=== PATIENT | male | born 1970 | race Two or more races ===

== ENCOUNTER 2020-09-30 17:17 | Inpatient (IN) | payer OTHER, MEDICAID ==
[~2020-09-30] VITALS: Ht 167.6 cm; Wt 94.7 kg
[2020-09-30] MEDS ORDERED: SODIUM CHLORIDE 0.9% 1,000 ML IV ONE (17:30)
[2020-09-30 18:43] LABS: Basophils # (auto) 0.1 10 ^3/uL (0-0.2); Basophils % (auto) 0.6 % (0.0-2.0); Eosinophils # (auto) 0.2 10 ^3/uL (0-0.8); Eosinophils % (auto) 1.7 % (0.0-7.0); Hematocrit 38.8 % (41.0-53.0); Hemoglobin 13.7 g/dL (13.5-17.5); Lymphocytes # (auto) 2.2 10 ^3/uL (0.4-5.4); Lymphocytes % (auto) 20.6 % (10.0-50.0); Mean Corpuscular Hemoglobin 29.1 pg (28.0-32.0); Mean Corpuscular Hgb Conc. 35.2 g/dL (32.0-36.0); Mean Corpuscular Volume 82.6 fL (80.0-100.0); Monocytes # (auto) 0.7 10 ^3/uL (0-1.3); Monocytes % (auto) 6.6 % (0.0-12.0); Neutrophils # (auto) 7.6 10 ^3/uL (1.6-8.6); Neutrophils % (auto) 70.5 % (37.0-80.0); Platelet Count (auto) 305 10^3/uL (140-450); Red Cell Distribution Width 14.1 % (11.8-14.3); White Blood Cell 10.7 10^3/uL (4.4-10.8)
[2020-09-30 18:58] LABS: Albumin 4.1 g/dL (3.4-5.0); Anion Gap 7 (5-15); Blood Urea Nitrogen 18 mg/dL (7-18); Calcium 8.4 mg/dL (8.5-10.1); Carbon Dioxide 24 mmol/L (21-32); Chloride 108 mmol/L (98-107); Glucose 136 mg/dL (74-106); Potassium 3.4 mmol/L (3.5-5.1); Sodium 139 mmol/L (136-145)
[2020-09-30] MEDS ORDERED: ZOLPIDEM TARTRATE 5 MG TAB PO PRN (19:00)
[2020-09-30] MEDS ORDERED: NITROGLYCERIN 0.4 MG SL TAB SL PRN (19:00)
[2020-09-30] MEDS ORDERED: MORPHINE SULF INJ 2 MG/ML SYRINGE 1ML IV PRN ×2 (19:00)
[2020-09-30] MEDS ORDERED: ONDANSETRON HCL 4 MG/2 ML VIAL IV PRN (19:00)
[2020-09-30] MEDS ORDERED: ACETAMINOPHEN 325 MG TAB PO PRN (19:00)
[2020-09-30 19:04] LABS: INR 1.03 (0.9-1.15); Partial Thromboplastin Time 27.9 sec (23.0-31.2)
[2020-09-30 19:05] LABS: Alanine Aminotransferase 16 U/L (16-61); Alkaline Phosphatase 82 U/L (45-117); Aspartate Aminotransferase 12 U/L (15-37); BUN/Creatinine Ratio 20.9; Bilirubin, Total 0.8 mg/dL (0.2-1.0); Creatine Kinase IFCC 396 U/L (39-308); GFR African American 121 mL/min; GFR Non-African American 100 mL/min; Total Protein 7.2 g/dL (6.4-8.2)
[2020-09-30 22:00] VITALS: BP 151/91
[2020-09-30] MEDS: METOPROLOL TARTRATE 50 MG TAB PO SCH (22:00)
[2020-09-30 22:05] LABS: Urine WBC None Seen /hpf (0 - 3)
[2020-09-30 22:16] LABS: Urine Bacteria NONE SEEN /hpf (None Seen); Urine Blood 1+ /uL (Negative); Urine Hyaline Cast FEW /lpf (0 - 2); Urine Mucus FEW (None Seen); Urine Specific Gravity 1.023 (1.001-1.035)
[2020-09-30] MEDS ORDERED: BUPR100T14 PO (23:04)
[2020-09-30] MEDS ORDERED: AMLO5TAB15 PO (23:04)
[2020-09-30] MEDS ORDERED: MELO1TAB56 PO (23:04)
[2020-09-30] MEDS ORDERED: LISI40TA11 PO (23:04)
[2020-09-30] MEDS ORDERED: BACL10TA PO (23:04)
[2020-09-30] MEDS ORDERED: CLON0.1T PO (23:04)
[2020-09-30] MEDS ORDERED: NAP500T PO (23:04)
[2020-09-30] MEDS ORDERED: SIMV-8 PO (23:04)
[2020-09-30] MEDS ORDERED: POTA10TA51 PO (23:04)
[2020-09-30] MEDS ORDERED: CARV12.544 PO (23:04)
[2020-09-30] MEDS: LISINOPRIL 20 MG TAB PO SCH (23:28)
[2020-09-30 23:31] VITALS: BP 151/91
[2020-10-01 00:03] VITALS: BP 151/91
[2020-10-01 05:00] VITALS: BP 148/94
[2020-10-01 05:37] LABS: Basophils # (auto) 0.1 10 ^3/uL (0-0.2); Basophils % (auto) 0.8 % (0.0-2.0); Eosinophils # (auto) 0.3 10 ^3/uL (0-0.8); Eosinophils % (auto) 3.6 % (0.0-7.0); Hemoglobin 12.9 g/dL (13.5-17.5); Lymphocytes # (auto) 2.1 10 ^3/uL (0.4-5.4); Lymphocytes % (auto) 25.1 % (10.0-50.0); Mean Corpuscular Hemoglobin 28.8 pg (28.0-32.0); Mean Corpuscular Hgb Conc. 34.9 g/dL (32.0-36.0); Mean Corpuscular Volume 82.6 fL (80.0-100.0); Monocytes # (auto) 0.8 10 ^3/uL (0-1.3); Monocytes % (auto) 9.1 % (0.0-12.0); Neutrophils # (auto) 5.1 10 ^3/uL (1.6-8.6); Neutrophils % (auto) 61.4 % (37.0-80.0); Nucleated Red Blood Cells % 0.2 %; Platelet Count (auto) 275 10^3/uL (140-450); Red Blood Cells 4.48 10^6/uL (4.5-5.90); Red Cell Distribution Width 13.7 % (11.8-14.3); White Blood Cell 8.3 10^3/uL (4.4-10.8)
[2020-10-01 05:56] LABS: Calcium 8.2 mg/dL (8.5-10.1); Potassium 3.2 mmol/L (3.5-5.1)
[2020-10-01 06:02] LABS: Albumin 3.6 g/dL (3.4-5.0); BUN/Creatinine Ratio 18.6; Bilirubin, Total 0.8 mg/dL (0.2-1.0); Total Protein 6.7 g/dL (6.4-8.2)
[2020-10-01] MEDS: METOPROLOL TARTRATE 50 MG TAB PO SCH (08:50)
[2020-10-01] MEDS: LISINOPRIL 20 MG TAB PO SCH ×2 (08:50→21:41)
[2020-10-01 09:00] VITALS: BP 129/82
[2020-10-01] MEDS: SODIUM CHLORIDE 0.9% 1,000 ML IV SCH ×2 (09:45→23:46)
[2020-10-01] MEDS ORDERED: POTASSIUM CHLORIDE 40 MEQ, LIDOCAINE 1% (LOCAL ANESTH.) 4 ML in SODIUM CHL 0.9% 250 ML IV ONE (09:45)
[2020-10-01] MEDS: CARVEDILOL 12.5 MG TAB PO SCH ×2 (11:14→21:40)
[2020-10-01] MEDS ORDERED: amLODIPine BESYLATE 5 MG TAB PO ONE (11:15)
[2020-10-01] MEDS: HYDROcodone-ACET 10/325MG TAB PO PRN (11:28)
[2020-10-01 13:00] VITALS: BP 142/99
[2020-10-01 17:00] VITALS: BP 126/94
[2020-10-01] MEDS: ATORVASTATIN 20 MG TAB PO SCH (21:40)
[2020-10-01 22:00] VITALS: BP 146/104
[2020-10-02 05:00] VITALS: BP 114/88
[2020-10-02 06:32] LABS: Basophils # (auto) 0.1 10 ^3/uL (0-0.2); Basophils % (auto) 0.8 % (0.0-2.0); Eosinophils # (auto) 0.4 10 ^3/uL (0-0.8); Eosinophils % (auto) 5.4 % (0.0-7.0); Hematocrit 37.7 % (41.0-53.0); Hemoglobin 12.9 g/dL (13.5-17.5); Lymphocytes # (auto) 2.4 10 ^3/uL (0.4-5.4); Mean Corpuscular Hemoglobin 28.4 pg (28.0-32.0); Mean Corpuscular Hgb Conc. 34.3 g/dL (32.0-36.0); Mean Corpuscular Volume 82.9 fL (80.0-100.0); Monocytes # (auto) 0.8 10 ^3/uL (0-1.3); Monocytes % (auto) 10.7 % (0.0-12.0); Neutrophils # (auto) 3.9 10 ^3/uL (1.6-8.6); Neutrophils % (auto) 51.1 % (37.0-80.0); Nucleated Red Blood Cells % 0.2 %; Platelet Count (auto) 276 10^3/uL (140-450); Red Blood Cells 4.54 10^6/uL (4.5-5.90); Red Cell Distribution Width 13.9 % (11.8-14.3); White Blood Cell 7.6 10^3/uL (4.4-10.8)
[2020-10-02 06:58] LABS: Albumin 3.3 g/dL (3.4-5.0); Calcium 8.1 mg/dL (8.5-10.1); Potassium 3.6 mmol/L (3.5-5.1)
[2020-10-02 07:01] LABS: BUN/Creatinine Ratio 19.2; Bilirubin, Total 0.7 mg/dL (0.2-1.0); Total Protein 6.6 g/dL (6.4-8.2)
[2020-10-02 09:00] VITALS: BP 141/93
[2020-10-02] MEDS ORDERED: buPROPion HCL 100 MG TAB PO ONE (09:30)
[2020-10-02] MEDS: CARVEDILOL 12.5 MG TAB PO SCH ×2 (10:04→21:50)
[2020-10-02] MEDS: POTASSIUM CHL 20 Meq TABLET PO SCH (10:04)
[2020-10-02] MEDS: LISINOPRIL 20 MG TAB PO SCH ×2 (10:05→21:51)
[2020-10-02] MEDS: BACLOFEN 10 MG TAB PO PRN ×2 (10:05→21:50)
[2020-10-02] MEDS: amLODIPine BESYLATE 5 MG TAB PO SCH (10:05)
[2020-10-02] MEDS: SODIUM CHLORIDE 0.9% 1,000 ML IV SCH (12:25)
[2020-10-02 13:00] VITALS: BP 134/88
[2020-10-02 17:00] VITALS: BP 149/98
[2020-10-02] MEDS: buPROPion HCL 100 MG TAB PO SCH (18:32)
[2020-10-02] MEDS: ATORVASTATIN 20 MG TAB PO SCH (21:51)
[2020-10-02 22:00] VITALS: BP 130/87
[2020-10-03] MEDS: SODIUM CHLORIDE 0.9% 1,000 ML IV SCH ×2 (01:45→15:05)
[2020-10-03 05:25] VITALS: BP 122/76
[2020-10-03] MEDS: buPROPion HCL 100 MG TAB PO SCH ×2 (05:53→17:57)
[2020-10-03] MEDS: BACLOFEN 10 MG TAB PO PRN ×2 (07:04→18:55)
[2020-10-03 09:00] VITALS: BP 140/95
[2020-10-03] MEDS: POTASSIUM CHL 20 Meq TABLET PO SCH (10:15)
[2020-10-03] MEDS: LISINOPRIL 20 MG TAB PO SCH ×2 (10:16→21:39)
[2020-10-03] MEDS: amLODIPine BESYLATE 5 MG TAB PO SCH (10:16)
[2020-10-03] MEDS: CARVEDILOL 12.5 MG TAB PO SCH ×2 (10:17→21:40)
[2020-10-03 13:00] VITALS: BP 128/92
[2020-10-03 17:00] VITALS: BP 136/84
[2020-10-03] MEDS: ATORVASTATIN 20 MG TAB PO SCH (21:38)
[2020-10-03 21:52] VITALS: BP 143/102
[2020-10-03] MEDS: HYDROcodone-ACET 10/325MG TAB PO PRN (22:02)
[2020-10-04] MEDS: SODIUM CHLORIDE 0.9% 1,000 ML IV SCH (04:25)
[2020-10-04 05:21] VITALS: BP 112/81
[2020-10-04] MEDS: buPROPion HCL 100 MG TAB PO SCH ×2 (05:26→17:53)
[2020-10-04 09:00] VITALS: BP 133/89
[2020-10-04] MEDS: amLODIPine BESYLATE 5 MG TAB PO SCH (09:46)
[2020-10-04] MEDS: LISINOPRIL 20 MG TAB PO SCH (09:46)
[2020-10-04] MEDS: POTASSIUM CHL 20 Meq TABLET PO SCH (09:47)
[2020-10-04] MEDS: CARVEDILOL 12.5 MG TAB PO SCH (09:47)
[2020-10-04] MEDS: BACLOFEN 10 MG TAB PO PRN (10:55)
[2020-10-04 13:00] VITALS: BP 135/89
[2020-10-04 13:06] VITALS: BP 135/89
== END 2020-10-04 18:09 | disposition home or self-care (01) | DRG 537 ==
LOC: ER 17:18 → TELE 17:19 → TELE-WESTW 20:42
PROVIDERS: ADMIT Internal Medicine; ATTEND Internal Medicine
DX: S76.111A Strain of right quadriceps muscle, fascia and tendon, initial encounter (principal); E44.1 Mild protein-calorie malnutrition; I69.354 Hemiplegia and hemiparesis following cerebral infarction affecting left non-dominant side; T14.8XXA Other injury of unspecified body region, initial encounter; I10 Essential (primary) hypertension; X58.XXXA Exposure to other specified factors, initial encounter; E87.6 Hypokalemia; Z79.82 Long term (current) use of aspirin; Z80.3 Family history of malignant neoplasm of breast; Z82.3 Family history of stroke; Z82.49 Family history of ischemic heart disease and other diseases of the circulatory system; Z83.3 Family history of diabetes mellitus; F32.9 Major depressive disorder, single episode, unspecified; Z68.33 Body mass index [BMI] 33.0-33.9, adult; Y93.89 Activity, other specified; Y92.89 Other specified places as the place of occurrence of the external cause; Y99.8 Other external cause status
CPT/HCPCS: 36415; 71045; 73718; 80053; 81001; 82550; 84484; 85025; 85610; 85730; 93971; G0378; J2001

== ENCOUNTER 2023-12-16 15:39 | Inpatient (IN) | payer OTHER, MEDICAID ==
[~2023-12-16] VITALS: Ht 167.6 cm; Wt 103.6 kg
[~2023-12-16 15:39] MED LIST: AMLO1TAB22 PO; BACL10TA PO; BUPR-346 PO; CARV12.544 PO; CLON0.1T PO; LISI40TA16 PO; MELO-335 PO; NAP500T PO; POTA10TA51 PO; SIMV20TA20 PO
[2023-12-16] MEDS ORDERED: ASPirin 325 MG TAB PO ONE (16:15)
[2023-12-16] MEDS ORDERED: NITROGLYCERIN 0.4 MG SL TAB SL ONE (16:15)
[2023-12-16 16:29] LABS: Base Excess -0.6 mmol/L (-2.0-2.0)
[2023-12-16 16:42] LABS: Basophils # (auto) 0.1 10 ^3/uL (0-0.2); Basophils % (auto) 0.9 % (0.0-2.0); Eosinophils # (auto) 0.3 10 ^3/uL (0-0.8); Eosinophils % (auto) 2.3 % (0.0-7.0); Hematocrit 46.1 % (41.0-53.0); Hemoglobin 15.8 g/dL (13.5-17.5); Lymphocytes # (auto) 2.7 10 ^3/uL (0.4-5.4); Lymphocytes % (auto) 24.1 % (10.0-50.0); Mean Corpuscular Hemoglobin 27.9 pg (28.0-32.0); Mean Corpuscular Hgb Conc. 34.2 g/dL (32.0-36.0); Mean Corpuscular Volume 81.5 fL (80.0-100.0); Monocytes # (auto) 0.8 10 ^3/uL (0-1.3); Monocytes % (auto) 7.2 % (0.0-12.0); Neutrophils # (auto) 7.3 10 ^3/uL (1.6-8.6); Neutrophils % (auto) 65.5 % (37.0-80.0); Red Blood Cells 5.65 10^6/uL (4.5-5.90); Red Cell Distribution Width 14.1 % (11.8-14.3); White Blood Cell 11.1 10^3/uL (4.4-10.8)
[2023-12-16 17:08] LABS: Alanine Aminotransferase 29 U/L (7-40); Albumin 4.8 g/dL (3.2-4.8); Alkaline Phosphatase 93 U/L (46-116); Anion Gap 6 (5-15); Aspartate Aminotransferase 23 U/L (13-40); Bilirubin, Total 0.7 mg/dL (0.2-1.0); Blood Urea Nitrogen 21 mg/dL (9-23); Calcium 9.7 mg/dL (8.7-10.4); Carbon Dioxide 27 mmol/L (20-30); Chloride 105 mmol/L (98-107); Glucose 100 mg/dL (74-106); Magnesium 2.1 mg/dL (1.6-2.6); Potassium 4.1 mmol/L (3.5-5.1); Sodium 138 mmol/L (136-145); Total Protein 7.7 g/dL (5.7-8.2)
[2023-12-16] MEDS ORDERED: FUROSEMIDE 20 MG/2 ML VIAL IV ONE (18:15)
[2023-12-16] MEDS ORDERED: cefTRIAXone 1GM/50ML D5W 50 ML IV ONE (18:15)
[2023-12-16] MEDS ORDERED: AZITHROMYCIN 500MG/ 250ML 250 ML IV ONE (18:45)
[2023-12-16] MEDS ORDERED: ONDANSETRON HCL 4 MG/2 ML VIAL IV PRN (18:45)
[2023-12-16] MEDS ORDERED: HYDROcodone-ACET 5/325MG TAB PO PRN (18:45)
[2023-12-16] MEDS ORDERED: DOCUSATE SOD 100 MG CAP PO PRN (18:45)
[2023-12-16] MEDS ORDERED: SODIUM CHLORIDE 0.9% 500 ML IV ONE (18:45)
[2023-12-16] MEDS ORDERED: ACETAMINOPHEN 325 MG TAB PO PRN (18:45)
[2023-12-16 18:58] VITALS: BP 157/110; PULSE 82; RESP 18; TEMP 98.7; O2SAT 96
[2023-12-16] MEDS ORDERED: QUET1TAB11 PO (19:06)
[2023-12-16] MEDS ORDERED: BACLOFEN 10 MG TAB PO PRN (19:15)
[2023-12-16] MEDS: buPROPion HCL 100 MG TAB PO SCH (21:00)
[2023-12-16] MEDS ORDERED: LORazepam 2MG/ML-1ML VIAL IV PRN (21:00)
[2023-12-16 21:15] VITALS: PULSE 66; RESP 18; O2SAT 96
[2023-12-16 21:58] VITALS: O2SAT 95
[2023-12-16] MEDS ORDERED: LISINOPRIL 20 MG TAB PO SCH (22:00)
[2023-12-16 22:27] LABS: COVID19 ANTIGEN SOFIA FIA NEGATIVE (NEGATIVE); Rapid Influenza A Negative (Negative); Rapid Influenza B Negative (Negative)
[2023-12-16] MEDS: CARVEDILOL 12.5 MG TAB PO SCH (22:55)
[2023-12-16] MEDS: cloNIDine HCL 0.1 MG TAB PO SCH (22:55)
[2023-12-17] VITALS (15 sets, daily range): BP systolic 100–139; BP diastolic 60–94; PULSE 60–88; RESP 16–20; TEMP 97.2–97.9; O2SAT 93–99
[2023-12-17 05:50] LABS: Basophils # (auto) 0.1 10 ^3/uL (0-0.2); Basophils % (auto) 0.9 % (0.0-2.0); Eosinophils # (auto) 0.3 10 ^3/uL (0-0.8); Hematocrit 41.7 % (41.0-53.0); Hemoglobin 13.9 g/dL (13.5-17.5); Lymphocytes # (auto) 2.6 10 ^3/uL (0.4-5.4); Lymphocytes % (auto) 34.5 % (10.0-50.0); Mean Corpuscular Hemoglobin 27.5 pg (28.0-32.0); Mean Corpuscular Hgb Conc. 33.4 g/dL (32.0-36.0); Mean Corpuscular Volume 82.5 fL (80.0-100.0); Monocytes # (auto) 0.7 10 ^3/uL (0-1.3); Monocytes % (auto) 9.8 % (0.0-12.0); Neutrophils # (auto) 3.9 10 ^3/uL (1.6-8.6); Neutrophils % (auto) 50.8 % (37.0-80.0); Red Blood Cells 5.06 10^6/uL (4.5-5.90); Red Cell Distribution Width 14.2 % (11.8-14.3); White Blood Cell 7.6 10^3/uL (4.4-10.8)
[2023-12-17 06:11] LABS: Alanine Aminotransferase 28 U/L (7-40); Alkaline Phosphatase 73 U/L (46-116); Anion Gap 9 (5-15); Aspartate Aminotransferase 23 U/L (13-40); BUN/Creatinine Ratio 18.9 (10.0-20.0); Blood Urea Nitrogen 23 mg/dL (9-23); Calcium 8.9 mg/dL (8.5-10.1); Carbon Dioxide 24 mmol/L (20-30); Chloride 107 mmol/L (98-107); Glucose 97 mg/dL (74-106); Potassium 3.5 mmol/L (3.5-5.1); Sodium 140 mmol/L (136-145)
[2023-12-17 06:12] LABS: Bilirubin, Total 0.6 mg/dL (0.2-1.0); Total Protein 6.4 g/dL (5.7-8.2)
[2023-12-17] MEDS: ALBUTEROL SULF 2.5 MG/0.5ML(0.5%) NEB SOLN NEB SCH ×3 (07:07→18:52)
[2023-12-17] MEDS: IPRATROPIUM BROM 0.5 MG/2.5ML INH SOL NEB SCH ×3 (07:07→18:52)
[2023-12-17] MEDS: cefTRIAXone 1GM/50ML D5W 50 ML IV SCH (09:03)
[2023-12-17] MEDS ORDERED: buPROPion HCL 100 MG TAB PO SCH (10:00)
[2023-12-17] MEDS: AZITHROMYCIN 500MG/ 250ML 250 ML IV SCH (11:51)
[2023-12-17] MEDS: POTASSIUM CHL 20 Meq TABLET PO SCH (11:52)
[2023-12-17] MEDS: CARVEDILOL 12.5 MG TAB PO SCH ×2 (11:53→22:14)
[2023-12-17] MEDS: amLODIPine BESYLATE 5 MG TAB PO SCH (11:53)
[2023-12-17] MEDS: buPROPion HCL 100 MG TAB PO SCH (11:54)
[2023-12-17] MEDS: cloNIDine HCL 0.1 MG TAB PO SCH ×2 (11:55→22:15)
[2023-12-17] MEDS: ASPirin 81 mg TAB PO SCH (11:55)
[2023-12-17] MEDS: ATORVASTATIN 20 MG TAB PO SCH (11:56)
[2023-12-17] MEDS: ENOXAPARIN SOD 40 MG/0.4 ML SYRINGE SC SCH (11:57)
[2023-12-17] MEDS ORDERED: IOHEXOL 350 MG/ML 100ML IJ ONE ×2 (17:34→21:03)
[2023-12-17] MEDS: QUEtiapine FUMARATE 25 MG TAB PO SCH (18:52)
[2023-12-18] VITALS (14 sets, daily range): BP systolic 123–136; BP diastolic 60–95; PULSE 59–85; RESP 15–20; TEMP 97.7–98.4; O2SAT 93–100
[2023-12-18] MEDS: IPRATROPIUM BROM 0.5 MG/2.5ML INH SOL NEB SCH ×3 (06:57→18:28)
[2023-12-18] MEDS: ALBUTEROL SULF 2.5 MG/0.5ML(0.5%) NEB SOLN NEB SCH ×3 (06:57→18:28)
[2023-12-18] MEDS: ATORVASTATIN 20 MG TAB PO SCH (08:49)
[2023-12-18] MEDS: cefTRIAXone 1GM/50ML D5W 50 ML IV SCH (08:49)
[2023-12-18] MEDS: ENOXAPARIN SOD 40 MG/0.4 ML SYRINGE SC SCH (08:49)
[2023-12-18] MEDS: ASPirin 81 mg TAB PO SCH (08:50)
[2023-12-18] MEDS: buPROPion HCL 100 MG TAB PO SCH (08:50)
[2023-12-18] MEDS: cloNIDine HCL 0.1 MG TAB PO SCH ×2 (08:50→22:25)
[2023-12-18] MEDS: amLODIPine BESYLATE 5 MG TAB PO SCH (08:51)
[2023-12-18] MEDS: CARVEDILOL 12.5 MG TAB PO SCH ×2 (08:52→22:25)
[2023-12-18] MEDS: POTASSIUM CHL 20 Meq TABLET PO SCH (08:52)
[2023-12-18] MEDS: AZITHROMYCIN 500MG/ 250ML 250 ML IV SCH (10:32)
[2023-12-18] MEDS: QUEtiapine FUMARATE 25 MG TAB PO SCH (17:12)
[2023-12-19] VITALS (8 sets, daily range): BP systolic 120–132; BP diastolic 72–93; PULSE 61–77; RESP 16–20; TEMP 97.5–98.1; O2SAT 94–100
[2023-12-19] MEDS: ALBUTEROL SULF 2.5 MG/0.5ML(0.5%) NEB SOLN NEB SCH ×3 (06:20→12:00)
[2023-12-19] MEDS: IPRATROPIUM BROM 0.5 MG/2.5ML INH SOL NEB SCH ×3 (06:20→12:00)
[2023-12-19] MEDS: ENOXAPARIN SOD 40 MG/0.4 ML SYRINGE SC SCH (08:30)
[2023-12-19] MEDS: ATORVASTATIN 20 MG TAB PO SCH (08:30)
[2023-12-19] MEDS: buPROPion HCL 100 MG TAB PO SCH (08:31)
[2023-12-19] MEDS: CARVEDILOL 12.5 MG TAB PO SCH (08:32)
[2023-12-19] MEDS: amLODIPine BESYLATE 5 MG TAB PO SCH (08:32)
[2023-12-19] MEDS: cloNIDine HCL 0.1 MG TAB PO SCH (08:33)
[2023-12-19] MEDS: POTASSIUM CHL 20 Meq TABLET PO SCH (08:33)
[2023-12-19] MEDS: cefTRIAXone 1GM/50ML D5W 50 ML IV SCH (08:34)
[2023-12-19] MEDS: AZITHROMYCIN 500MG/ 250ML 250 ML IV SCH (10:10)
[2023-12-19] MEDS: ASPirin 81 mg TAB PO SCH (10:11)
[2023-12-19] MEDS ORDERED: AZIT-74 PO (12:11)
== END 2023-12-19 17:00 | disposition home or self-care (01) | DRG 177 ==
LOC: ER 15:39 → OVERFLOW 18:55 → EAST 18:55
PROVIDERS: ADMIT Nurse Practitioner Family; ATTEND Internal Medicine
DX: J15.69 Pneumonia due to other Gram-negative bacteria (principal); J96.01 Acute respiratory failure with hypoxia; N17.0 Acute kidney failure with tubular necrosis; I69.351 Hemiplegia and hemiparesis following cerebral infarction affecting right dominant side; J15.9 Unspecified bacterial pneumonia; E78.5 Hyperlipidemia, unspecified; F32.A Depression, unspecified; G89.29 Other chronic pain; I10 Essential (primary) hypertension; M54.9 Dorsalgia, unspecified; E66.9 Obesity, unspecified; M54.50 Low back pain, unspecified; I71.21 Aneurysm of the ascending aorta, without rupture; E87.6 Hypokalemia; D72.829 Elevated white blood cell count, unspecified; F17.200 Nicotine dependence, unspecified, uncomplicated; K40.90 Unilateral inguinal hernia, without obstruction or gangrene, not specified as recurrent; Z20.822 Contact with and (suspected) exposure to COVID-19; Z82.3 Family history of stroke; Z83.3 Family history of diabetes mellitus; Z82.49 Family history of ischemic heart disease and other diseases of the circulatory system; Z80.3 Family history of malignant neoplasm of breast; Z79.82 Long term (current) use of aspirin; Z79.899 Other long term (current) drug therapy; Z86.79 Personal history of other diseases of the circulatory system; Z68.36 Body mass index [BMI] 36.0-36.9, adult
CPT/HCPCS: 36415; 36600; 70450; 70551; 71045; 71250; 71260; 74177; 80053; 82805; 83735; 83880; 84484; 85025; 85379; 87426; 87804; 93005; 93925; 93970; 94640; G0378

== ENCOUNTER → 2023-12-22 | Outpatient (CLI) | payer OTHER ==
[~2023-12-22] MED LIST changes: +AZIT-74 PO; +QUET1TAB11 PO
== END | disposition home or self-care (01) ==
LOC: Rad HDHVI 09:45
PROVIDERS: ATTEND Internal Medicine Cardiovascular Disease
DX: I07.1 Rheumatic tricuspid insufficiency (principal); I71.21 Aneurysm of the ascending aorta, without rupture; I11.9 Hypertensive heart disease without heart failure; E78.5 Hyperlipidemia, unspecified
CPT/HCPCS: 93306

== ENCOUNTER 2024-04-18 08:28 | Emergency (ER) | payer OTHER, MEDICAID ==
[~2024-04-18] VITALS: Ht 167.6 cm; Wt 94.2 kg
[~2024-04-18 08:28] MED LIST changes: -MELO-335 PO; +MELO15TA29 PO; +POTA-36 PO; -POTA10TA51 PO
[2024-04-18 09:25] LABS: Basophils # (auto) 0.1 10 ^3/uL (0-0.2); Basophils % (auto) 0.9 % (0.0-2.0); Eosinophils # (auto) 0.5 10 ^3/uL (0-0.8); Eosinophils % (auto) 5.8 % (0.0-7.0); Hematocrit 40.2 % (41.0-53.0); Hemoglobin 13.9 g/dL (13.5-17.5); Lymphocytes # (auto) 1.8 10 ^3/uL (0.4-5.4); Lymphocytes % (auto) 21.4 % (10.0-50.0); Mean Corpuscular Hemoglobin 28.4 pg (28.0-32.0); Mean Corpuscular Hgb Conc. 34.6 g/dL (32.0-36.0); Mean Corpuscular Volume 82.1 fL (80.0-100.0); Monocytes # (auto) 0.8 10 ^3/uL (0-1.3); Monocytes % (auto) 8.9 % (0.0-12.0); Neutrophils # (auto) 5.3 10 ^3/uL (1.6-8.6); Nucleated Red Blood Cells % 0.1 %; Red Cell Distribution Width 13.4 % (11.8-14.3); White Blood Cell 8.4 10^3/uL (4.4-10.8)
[2024-04-18 09:36] LABS: Alanine Aminotransferase 18 U/L (7-40); Albumin 4.1 g/dL (3.2-4.8); Alkaline Phosphatase 93 U/L (46-116); Anion Gap 8 (5-15); Aspartate Aminotransferase 16 U/L (13-40); BUN/Creatinine Ratio 14.9 (10.0-20.0); Bilirubin, Total 0.4 mg/dL (0.2-1.0); Blood Urea Nitrogen 11 mg/dL (9-23); Carbon Dioxide 26 mmol/L (20-30); Chloride 107 mmol/L (98-107); Glucose 114 mg/dL (74-106); Potassium 3.3 mmol/L (3.5-5.1); Sodium 141 mmol/L (136-145); Total Protein 6.4 g/dL (5.7-8.2)
[2024-04-18] MEDS: IPRATROPIUM BROM 0.5 MG/2.5ML INH SOL NEB ONE (09:51)
[2024-04-18] MEDS: ALBUTEROL SULF 2.5 MG/0.5ML(0.5%) NEB SOLN NEB ONE (09:51)
[2024-04-18 11:06] VITALS: BP 123/89; PULSE 93; RESP 18; TEMP 98; O2SAT 96
== END 2024-04-18 14:29 | disposition left against medical advice (07) ==
LOC: ER 08:28
DX: R06.00 Dyspnea, unspecified (principal); M25.521 Pain in right elbow; I10 Essential (primary) hypertension; F32.A Depression, unspecified; F12.10 Cannabis abuse, uncomplicated; Z86.73 Personal history of transient ischemic attack (TIA), and cerebral infarction without residual deficits
CPT/HCPCS: 36415; 71046; 73080; 80053; 85025; 93005; 94640; 99285; J7644

== ENCOUNTER 2024-05-14 21:42 | Emergency (ER) | payer OTHER, MEDICAID ==
[~2024-05-14] VITALS: Ht 167.6 cm; Wt 90.0 kg
[2024-05-14 22:51] VITALS: BP 138/96; RESP 18; TEMP 97.2
[2024-05-14 22:53] VITALS: PULSE 85; O2SAT 93
== END 2024-05-14 23:42 | disposition admitted as inpatient to this hospital (09) ==
LOC: ER 21:42
DX: I10 Essential (primary) hypertension (principal); F32.9 Major depressive disorder, single episode, unspecified; F15.90 Other stimulant use, unspecified, uncomplicated; Z86.73 Personal history of transient ischemic attack (TIA), and cerebral infarction without residual deficits; Z79.899 Other long term (current) drug therapy
CPT/HCPCS: 93005

== ENCOUNTER 2024-08-18 20:13 | Emergency (ER) | payer OTHER, MEDICAID ==
[~2024-08-18] VITALS: Ht 162.6 cm; Wt 81.0 kg
[2024-08-18] MEDS: ONDANSETRON HCL 4 MG/2 ML VIAL IV ONE (20:30)
[2024-08-18] MEDS: SODIUM CHLORIDE 0.9% 1,000 ML IV ONE (20:30)
[2024-08-18] MEDS: MORPHINE SULFATE 4 MG/ML SYR/VIAL IV ONE (20:30)
[2024-08-18 20:58] LABS: Basophils # (auto) 0.1 10 ^3/uL (0-0.2); Basophils % (auto) 1.2 % (0.0-2.0); Eosinophils # (auto) 0.3 10 ^3/uL (0-0.8); Eosinophils % (auto) 4.1 % (0.0-7.0); Hematocrit 42.6 % (41.0-53.0); Hemoglobin 14.9 g/dL (13.5-17.5); Lymphocytes # (auto) 2.4 10 ^3/uL (0.4-5.4); Lymphocytes % (auto) 30.6 % (10.0-50.0); Mean Corpuscular Hemoglobin 28.8 pg (28.0-32.0); Mean Corpuscular Hgb Conc. 34.8 g/dL (32.0-36.0); Mean Corpuscular Volume 82.7 fL (80.0-100.0); Monocytes # (auto) 0.7 10 ^3/uL (0-1.3); Monocytes % (auto) 9.1 % (0.0-12.0); Neutrophils # (auto) 4.3 10 ^3/uL (1.6-8.6); Nucleated Red Blood Cells % 0.3 %; Platelet Count (auto) 280 10^3/uL (140-450); Red Blood Cells 5.16 10^6/uL (4.5-5.90); Red Cell Distribution Width 13.7 % (11.8-14.3); White Blood Cell 7.8 10^3/uL (4.4-10.8)
[2024-08-18] MEDS: IOHEXOL 300 MG/ML 100ML BOTTLE IJ ONE (20:58)
[2024-08-18 21:17] LABS: Alanine Aminotransferase 19 U/L (7-40); Albumin 4.4 g/dL (3.2-4.8); Alkaline Phosphatase 79 U/L (46-116); Anion Gap 4 (5-15); Aspartate Aminotransferase 14 U/L (13-40); BUN/Creatinine Ratio 13.8 (10.0-20.0); Bilirubin, Total 0.6 mg/dL (0.2-1.0); Blood Urea Nitrogen 13 mg/dL (9-23); Calcium 9.3 mg/dL (8.7-10.4); Carbon Dioxide 27 mmol/L (20-31); Chloride 108 mmol/L (98-107); Glucose 106 mg/dL (74-106); Lipase 80 U/L (12-53); Potassium 3.5 mmol/L (3.5-5.1); Sodium 139 mmol/L (136-145); Total Protein 6.7 g/dL (5.7-8.2)
[2024-08-19] MEDS: KETOROLAC TROMETH 30 MG/ML 1ML VIAL IV ONE (02:24)
[2024-08-19 02:33] VITALS: BP 155/91; PULSE 69; RESP 16; TEMP 97.6; O2SAT 96
== END 2024-08-19 02:34 | disposition home or self-care (01) ==
LOC: ER 20:13 → EDBD 20:13 → EDUNIT# 20:13 → ER 08-19 02:34
DX: N20.0 Calculus of kidney (principal); I10 Essential (primary) hypertension; F12.10 Cannabis abuse, uncomplicated; Z79.1 Long term (current) use of non-steroidal anti-inflammatories (NSAID); Z79.899 Other long term (current) drug therapy; Z86.73 Personal history of transient ischemic attack (TIA), and cerebral infarction without residual deficits; Z86.79 Personal history of other diseases of the circulatory system
CPT/HCPCS: 36415; 74177; 80053; 83605; 83690; 84484; 85025; 93005; 96374; 99285; J1885; J2405; Q9967

== ENCOUNTER → 2025-01-01 | Outpatient (CLI) | payer OTHER, MEDICAID | END | disposition home or self-care (01) | LOC: Rad HDHVI 10:15 | PROVIDERS: ATTEND Internal Medicine Cardiovascular Disease | DX: I10 Essential (primary) hypertension (principal) | CPT/HCPCS: 93306 ==

== ENCOUNTER 2025-02-22 01:00 | Emergency (ER) | payer OTHER, MEDICAID ==
[~2025-02-22] VITALS: Ht 165.1 cm; Wt 93.2 kg
--- NOTE | 2025-02-22 01:14 | ED.PDOC ---
History of Present Illness HPI Comments 54-year-old male with PMHx CVA, TAA, HTN brought in by EMS presents with a chief complaint of abdominal pain x 45 minutes. Patient states that he has a preexisting hernia in his right groin and periumbilical region. Patient mentioned that he sneezed about 45 minutes ago and felt a sudden pain to his hernia locations. Patient is now endorsing 10/10 pain to his right inguinal region and epigastric region. Patient was given IV Tylenol without relief of symptoms. Patient mentions that he does not want strong pain medications. Chief Complaint: Abdominal Pain Time Seen by MD: 01:06 Primary Care Provider: BEENA Stallworht Notes: Medications, Allergies Allergies: Coded Allergies: No Known Drug Allergy (Verified Allergy, Unknown, 09/30/20) Home Meds Active Scripts Azithromycin (Zithromax) 250 Mg Tab, 250 MG PO DAILY, #6 TAB Take 2 tablets the first day, then 1 tablet daily until finish Prov:ANKUR FLORES MD 12/19/23 Reported Medications Quetiapine Fumerate (QUETIAPINE FUMARATE) 25 Mg Tab, 1 TAB PO QPM 12/16/23 Bupropion Hcl (Bupropion Hcl) 100 Mg Tab, 200 MG PO DAILY for 30 Days, MG 09/30/20 Naproxen (NAPROSYN TABLET) 500 Mg Tb, 1 TAB PO BID, #60 TAB 1 Refill 09/30/20 Carvedilol (Carvedilol) 12.5 Mg Tab, 12.5 MG PO Q12HR for 30 Days, MG 09/30/20 Lisinopril (Lisinopril) 40 Mg Tab, 40 MG PO BID for 30 Days, MG 09/30/20 Meloxicam (Meloxicam) 15 Mg Tab, 1 TAB PO DAILY, #30 TAB 2 Refills 09/30/20 Clonidine Hydrochloride (Clonidine Hcl) 0.1 Mg Tab, 0.1 MG PO BID for 30 Days, MG 09/30/20 Simvastatin (Simvastatin) 20 Mg Tab, 20 MG PO DAILY for 30 Days 09/30/20 Amlodipine Besylate (Amlodipine Besylate) 5 Mg Tab, 10 MG PO DAILY for 30 Days, MG 09/30/20 Baclofen (Baclofen) 10 Mg Tab, 20 MG PO TID PRN for PAIN SCALE 1 THRU 6 for 30 Days, MG 09/30/20 Potassium Chloride (POTASSIUM CHLORIDE CR) 10 Meq Tb, 20 MEQ PO DAILY, TAB 09/30/20 Information Source: Patient, Emergency Med Personnel Mode of Arrival: EMS Severity: Moderate Timing: Minutes Duration: Since onset Prehospital treatment: None Past Medical History PAST MEDICAL HISTORY: CVA, Depression, HTN, TIA Past Medical History (Other): Thoracic Aortic Aneurysm Surgical History: Denies all surgeries Family History Family History: Reviewed,noncontributory to illness Social History Smoker: Non-Smoker Alcohol: Denies ETOH Use Drugs: Marijuana Lives In: Home Constitutional: denies: chills, diaphoresis, fatigue, fever, malaise, sweats, weakness, others EENTM: denies: blurred vision, double vision, ear bleeding, ear discharge, ear drainage, ear pain, ear ringing, eye pain, eye redness, hearing loss, mouth pain, mouth swelling, nasal discharge, nose bleeding, nose congestion, nose pain, photophobia, tearing, throat pain, throat swelling, voice changes, others Respiratory: denies: cough, hemoptysis, orthopnea, SOB at rest, shortness of breath, SOB with excertion, stridor, wheezing, others Cardiovascular: denies: chest pain, dizzy spells, diaphoresis, Dyspnea on exertion, edema, irregular heart beat, left arm pain, lightheadedness, palpitations, PND, syncope, others Gastrointestinal: reports: abdominal pain; denies: abdomen distended, blood streaked bowels, constipated, diarrhea, dysphagia, difficulty swallowing, hematemesis, melena, nausea, poor appetite, poor fluid intake, rectal bleeding, rectal pain, vomiting, others Genitourinary: denies: burning, dysuria, flank pain, frequency, hematuria, incontinence, penile discharge, penile sore, pain, testicle pain, testicle swelling, urgency, others Neurological: denies: dizziness, fainting, headache, left sided numbness, left sided weakness, numbness, paresthesia, pre-existing deficit, right sided numbness, right sided weakness, seizure, speech problems, tingling, tremors, weakness, others Musculoskeletal: denies: back pain, gout, joint pain, joint swelling, muscle pain, muscle stiffness, neck pain, others Integumetry: denies: bruises, change in color, change in hair/nails, dryness, laceration, lesions, lumps, rash, wounds, others Allergic/Immunocompromised: denies: Difficulty Healing, Frequent Infections, Hives, Itching, others Hematologic/Lymphatic: denies: anemia, blood clots, easy bleeding, easy bruising, swollen glands, others Endocrine: denies: excessive hunger, excessive sweating, excessive thirst, excessive urination, flushing, intolerance to cold, intolerance to heat, unexplained weight gain, unexplained weight loss, others Psychiatric: denies: anxiety, bipolar disorder, depression, hopeless, panic disorder, schizophrenia, sleepless, suicidal, others All Other Systems: Reviewed and Negative Physical Exam General Appearance: No Apparent Distress, Normal HEENT: Normal ENT Inspection, Pharynx Normal, TMs Normal Neck: Full Range of Motion, Non-Tender, Normal, Normal Inspection Respiratory: Chest Non-Tender, Lungs Clear, No Accessory Muscle Use, No Respiratory Distress, Normal Breath Sounds Cardiovascular: No Edema, No JVD, No Murmur, No Gallop, Normal Peripheral Pulses, Regular Rate/Rhythm Breast Exam: Deferred Gastrointestinal: No Organomegaly, Non Tender, No Pulsatile Mass, Normal Bowel Sounds, Soft Genitalia: Deferred Pelvic: Deferred Rectal: Deferred Extremities: No calf tenderness, Normal capillary refill, Normal inspection, Normal range of motion, Non-tender, No pedal edema Musculoskeletal : Apperance: Normal 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 Was a procedure done?: No Differential Dx Considerations may include: Differential diagnosis includes but is not limited to: appendicitis, diverticulitis, colitis, urinary tract infection, ureteral colic / stone, bowel obstruction, and others X-Ray, Labs, Meds, VS Vital Signs Date Time Temp Pulse Resp B/P (MAP) Pulse Ox O2 Delivery O2 Flow Rate FiO2 02/22/25 01:06 97.6 89 20 134/91 (105) 94 97.6 02/22/25 01:03 85 Lab Test 02/22/25 01:20 Range/Units White Blood Count 10.0 4.4-10.8 10^3/uL Red Blood Count 5.07 4.5-5.90 10^6/uL Hemoglobin 14.8 13.5-17.5 g/dL Hematocrit 41.8 41.0-53.0 % Mean Corpuscular Volume 82.5 80.0-100.0 fL Mean Corpuscular Hemoglobin 29.2 28.0-32.0 pg Mean Corpuscular Hemoglobin Concent 35.4 32.0-36.0 g/dL Red Cell Distribution Width 13.5 11.8-14.3 % Platelet Count 316 140-450 10^3/uL Mean Platelet Volume 7.8 6.9-10.8 fL Neutrophils (%) (Auto) 57.4 37.0-80.0 % Lymphocytes (%) (Auto) 24.7 10.0-50.0 % Monocytes (%) (Auto) 10.0 0.0-12.0 % Eosinophils (%) (Auto) 6.6 0.0-7.0 % Basophils (%) (Auto) 1.3 0.0-2.0 % Neutrophils # (Auto) 5.8 1.6-8.6 10 ^3/uL Lymphocytes # (Auto) 2.5 0.4-5.4 10 ^3/uL Monocytes # (Auto) 1.0 0-1.3 10 ^3/uL Eosinophils # (Auto) 0.7 0-0.8 10 ^3/uL Basophils # (Auto) 0.1 0-0.2 10 ^3/uL Nucleated Red Blood Cells 0.1 % Sodium Level 141 136-145 mmol/L Potassium Level 3.3 L 3.5-5.1 mmol/L Chloride Level 108 H 98-107 mmol/L Carbon Dioxide Level 24 20-31 mmol/L Anion Gap 9 5-15 Blood Urea Nitrogen 16 9-23 mg/dL Creatinine 0.95 0.700-1.30 mg/dL Glomerular Filtration Rate Calc 95 >90 mL/min BUN/Creatinine Ratio 16.8 10.0-20.0 Serum Glucose 132 H 74-106 mg/dL Calcium Level 8.9 8.7-10.4 mg/dL Total Bilirubin 0.4 0.2-1.0 mg/dL Aspartate Amino Transferase (AST) 13 13-40 U/L Alanine Aminotransferase (ALT) 18 7-40 U/L Alkaline Phosphatase 93 46-116 U/L Total Protein 6.9 5.7-8.2 g/dL Albumin 4.5 3.2-4.8 g/dL Lipase 59 H 12-53 U/L Current Medications Medications (Trade) Dose Ordered Sig/Gerardo Route Start Time Stop Time Status Last Admin Ondansetron HCl (Zofran) 4 mg ONCE ONCE IV 02/22/25 01:15 02/22/25 01:16 DC 02/22/25 03:29 Sodium Chloride 1,000 ml @ 1,000 mls/hr Q1H ONCE IVB 02/22/25 01:15 02/22/25 02:14 DC 02/22/25 03:30 Ketorolac Tromethamine (Toradol Injection) 15 mg ONCE ONCE IV 02/22/25 01:15 02/22/25 01:16 DC 02/22/25 03:29 Time of 1ST Reevaluation: 01:36 Reevaluation 1ST: Unchanged Time of 2ND Reevaluation: 03:37 Reevaluation 2ND: Improved Patient Education/Counseling: Diagnosis, Treatment, Prognosis Family Education/Counseling: No Family Present Departure 1 Departure Time of Disposition: 03:37 Impression: Primary Impression: Abdominal pain Additional Impression: Hernia, inguinal, right Disposition: 01 HOME / SELF CARE / HOMELESS Condition: Stable Discharged With: Self Critical Care Note Critical Care Time?: No Stability Stability form required: No Heart Score Heart Score: Heart Score Response (Comments) Value History N/A 0 EKG N/A 0 Age N/A 0 Risk Factors N/A 0 Troponin N/A 0 Total 0 I personally scribed for ANTWAN TATE MD ([email or web address]) on 02/22/25 at 01:14. Electronically submitted by Dm Dozier ([email or web address]). ANTWAN TATE MD Feb 22, 2025 01:14
[2025-02-22 01:30] VITALS: PULSE 83; RESP 17; O2SAT 92
[2025-02-22 01:31] LABS: Basophils # (auto) 0.1 10 ^3/uL (0-0.2); Basophils % (auto) 1.3 % (0.0-2.0); Eosinophils # (auto) 0.7 10 ^3/uL (0-0.8); Eosinophils % (auto) 6.6 % (0.0-7.0); Hematocrit 41.8 % (41.0-53.0); Hemoglobin 14.8 g/dL (13.5-17.5); Lymphocytes # (auto) 2.5 10 ^3/uL (0.4-5.4); Lymphocytes % (auto) 24.7 % (10.0-50.0); Mean Corpuscular Hemoglobin 29.2 pg (28.0-32.0); Mean Corpuscular Hgb Conc. 35.4 g/dL (32.0-36.0); Mean Corpuscular Volume 82.5 fL (80.0-100.0); Neutrophils # (auto) 5.8 10 ^3/uL (1.6-8.6); Neutrophils % (auto) 57.4 % (37.0-80.0); Nucleated Red Blood Cells % 0.1 %; Platelet Count (auto) 316 10^3/uL (140-450); Red Blood Cells 5.07 10^6/uL (4.5-5.90); Red Cell Distribution Width 13.5 % (11.8-14.3)
[2025-02-22 01:53] LABS: Alanine Aminotransferase 18 U/L (7-40); Albumin 4.5 g/dL (3.2-4.8); Alkaline Phosphatase 93 U/L (46-116); Anion Gap 9 (5-15); Aspartate Aminotransferase 13 U/L (13-40); BUN/Creatinine Ratio 16.8 (10.0-20.0); Blood Urea Nitrogen 16 mg/dL (9-23); Calcium 8.9 mg/dL (8.7-10.4); Carbon Dioxide 24 mmol/L (20-31); Sodium 141 mmol/L (136-145); Total Protein 6.9 g/dL (5.7-8.2)
[2025-02-22 01:54] LABS: Bilirubin, Total 0.4 mg/dL (0.2-1.0); Chloride 108 mmol/L (98-107); Glucose 132 mg/dL (74-106); Lipase 59 U/L (12-53); Potassium 3.3 mmol/L (3.5-5.1)
[2025-02-22 02:00] VITALS: TEMP 97.7
[2025-02-22 03:17] VITALS: BP 115/65; PULSE 78; RESP 17; O2SAT 92
--- NOTE | 2025-02-22 03:24 | DVH ---
Exam: CT CT AB PEL WITH IV CON ONLY History: abd pain Comparison Study: None available at time of dictation. Contrast: 100 cc Omnipaque 300 TECHNIQUE: A digital real estate internship image was obtained. During the uneventful, intravenous administration of c ontrast material, multislice data acquisition was obtained through the abdomen and pelvis. The data s et was subsequently reconstructed into axial images. Images were reviewed on a work station using a c ombination of axial and multiplanar using a variety of window levels and settings. All CT scans at this medical facility are performed using dose modulation techniques as appropriate t o a performed exam including the following: Automated exposure control was utilized; adjustment of th e MA and/or KV according to patient size; and use of iterative reconstruction technique. Radiation Dose Information: CT Dose: CTDI volume is 22.5 mGy. Dose-length product is 1426.4 mGy*cm FINDINGS: Imaged portions of the lung bases appear unremarkable. Small hiatal hernia. Liver, spleen, pancreas and adrenal glands appear unremarkable. The gallbladder appears unremarkable. There is a small diverticulum of the 2nd portion of the duodenum. The kidneys enhance symmetrically. 1 cm nonobstructing right renal calculus. Small benign-appearing l eft renal cyst. Diffuse colonic diverticulosis. Appendix not visualized, however right lower quadrant appears unremar kable. No free fluid, free air, or adenopathy. Large inguinal hernia containing significant portion of the urinary bladder. No suspicious osseous lesion. IMPRESSION: 1. Large right inguinal hernia containing large portion of the urinary bladder. 2. No additional acute intra-abdominal findings. HS:Y
[2025-02-22] MEDS: KETOROLAC TROMETH 30 MG/ML 1ML VIAL IV ONE (03:29)
[2025-02-22] MEDS: ONDANSETRON HCL 4 MG/2 ML VIAL IV ONE (03:29)
[2025-02-22] MEDS: SODIUM CHLORIDE 0.9% 1,000 ML IVB ONE (03:30)
[2025-02-22] MEDS: IOHEXOL 300 MG/ML 100ML BOTTLE IJ ONE (03:31)
[2025-02-22] MEDS: POTASSIUM CHL 20 Meq TABLET PO ONE (03:56)
--- NOTE | 2025-02-22 06:39 | ECG ---
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
== END 2025-02-22 04:07 | disposition home or self-care (01) ==
LOC: ER 01:00 → EDBD 01:00 → ER 04:07
DX: R10.13 Epigastric pain (principal); K40.90 Unilateral inguinal hernia, without obstruction or gangrene, not specified as recurrent; F32.A Depression, unspecified; I10 Essential (primary) hypertension; Z86.73 Personal history of transient ischemic attack (TIA), and cerebral infarction without residual deficits; Z86.79 Personal history of other diseases of the circulatory system; Z79.899 Other long term (current) drug therapy; Z79.1 Long term (current) use of non-steroidal anti-inflammatories (NSAID)
CPT/HCPCS: 36415; 74177; 80053; 83690; 85025; 93005; 96361; 96374; 96375; 99285; J1885; J2405; J7030; Q9967

== ENCOUNTER 2025-06-07 01:25 | Inpatient (IN) | payer OTHER, MEDICAID ==
[2025-06-07] VITALS (12 sets, daily range): BP systolic 125–152; BP diastolic 9–105; PULSE 61–86; RESP 12–20; TEMP 97.3–98; O2SAT 91–98
[~2025-06-07] VITALS: Ht 165.1 cm; Wt 96.0 kg
--- NOTE | 2025-06-07 01:57 | ED.PDOC ---
General HPI Comments 54 year old male presents to the ED via EMS with a chief complaint of RT flank pain onset 2 days. Patient states he has been experiencing RT flank pain for the past 2 days, noticed pain worsen this morning. Patient has had kidney stones in the past, states pain is similar. Patient was given 100 mcg Fentanyl by EMS in route to ED. Patient also states he is currently experiencing nausea, dark urine, possible hematuria. PMHx TIA, CVA with RT side deficts, kidney stones, HTN, depression. Denies chest pain, shortness of breath, vomiting, diarrhea, constipation, headache, melena. No other symptoms or modifying factors present at this time. Time Seen by MD: 01:30 Primary Care Provider: BEENA Reviewed notes: Medications, Allergies Allergies: Coded Allergies: No Known Drug Allergy (Verified Allergy, Unknown, 09/30/20) Home Meds Active Scripts Azithromycin (Zithromax) 250 Mg Tab, 250 MG PO DAILY, #6 TAB Take 2 tablets the first day, then 1 tablet daily until finish Prov:ANKUR FLORES MD 12/19/23 Reported Medications Quetiapine Fumerate (QUETIAPINE FUMARATE) 25 Mg Tab, 1 TAB PO QPM 12/16/23 Bupropion Hcl (Bupropion Hcl) 100 Mg Tab, 200 MG PO DAILY for 30 Days, MG 09/30/20 Naproxen (NAPROSYN TABLET) 500 Mg Tb, 1 TAB PO BID, #60 TAB 1 Refill 09/30/20 Carvedilol (Carvedilol) 12.5 Mg Tab, 12.5 MG PO Q12HR for 30 Days, MG 09/30/20 Lisinopril (Lisinopril) 40 Mg Tab, 40 MG PO BID for 30 Days, MG 09/30/20 Meloxicam (Meloxicam) 15 Mg Tab, 1 TAB PO DAILY, #30 TAB 2 Refills 09/30/20 Clonidine Hydrochloride (Clonidine Hcl) 0.1 Mg Tab, 0.1 MG PO BID for 30 Days, MG 09/30/20 Simvastatin (Simvastatin) 20 Mg Tab, 20 MG PO DAILY for 30 Days 09/30/20 Amlodipine Besylate (Amlodipine Besylate) 5 Mg Tab, 10 MG PO DAILY for 30 Days, MG 09/30/20 Baclofen (Baclofen) 10 Mg Tab, 20 MG PO TID PRN for PAIN SCALE 1 THRU 6 for 30 Days, MG 09/30/20 Potassium Chloride (POTASSIUM CHLORIDE CR) 10 Meq Tb, 20 MEQ PO DAILY, TAB 09/30/20 Information Source: Patient, Emergency Med Personnel Mode of Arrival: EMS Severity: Moderate Timing: Days Duration: Since onset Prehospital treatment: Pain Meds (100 mcg Fentanyl) Onset: Spontaneous Symptoms: Other History of: Kidney stone Location: (R) Flank Penile discharge: None Modifying factors: None associated signs and symptoms: Nausea, Flank Pain Vital Signs Vital Signs Date Time Temp Pulse Resp B/P (MAP) Pulse Ox O2 Delivery O2 Flow Rate FiO2 06/07/25 01:30 97.9 72 15 147/85 (105) 95 97.9 Physical Exam PHYSICAL EXAM: General: Awake, alert and oriented. No acute distress. Skin: Skin in warm, dry and intact without rashes or lesions. HEENT: The head is normocephalic and atraumatic. Conjunctivae are clear without exudates or hemorrhage. Sclera is non-icteric. Neck: Normal range of motion. No JVD. Cardiac: Regular rate Abdominal: Right flank tenderness, abdominal distention, no guarding, rebound or rigidity. Abdomen is soft Respiratory: No signs of respiratory distress. No Stridor. Extremities: Upper and lower extremities are atraumatic in appearance without deformity. Neurological: The patient is awake, alert and oriented to person, place, and time with normal speech. Speech is clear. There is no facial asymmetry. Psychiatric: Appropriate mood and affect. Good judgement and insight. Review of Systems: As stated in HPI Past Medical History PAST MEDICAL HISTORY: CVA, Depression, HTN, Kidney Stones, TIA Surgical History: Denies all surgeries Family History Family History: Reviewed,noncontributory to illness Social History Smoker: Non-Smoker Alcohol: Denies ETOH Use Drugs: Marijuana Lives In: Home Was a procedure done? Was a procedure done?: No Differential Diagnosis Kidney stone (Female): Other (Right flank pain) X-Ray, Labs, Meds, VS Vital Signs Date Time Temp Pulse Resp B/P (MAP) Pulse Ox O2 Delivery O2 Flow Rate FiO2 06/07/25 01:30 97.9 72 15 147/85 (105) 95 97.9 Lab Test 06/07/25 01:48 Range/Units White Blood Count 10.9 H 4.4-10.8 10^3/uL Red Blood Count 4.83 4.5-5.90 10^6/uL Hemoglobin 14.0 13.5-17.5 g/dL Hematocrit 39.8 L 41.0-53.0 % Mean Corpuscular Volume 82.4 80.0-100.0 fL Mean Corpuscular Hemoglobin 29.0 28.0-32.0 pg Mean Corpuscular Hemoglobin Concent 35.2 32.0-36.0 g/dL Red Cell Distribution Width 13.6 11.8-14.3 % Platelet Count 287 140-450 10^3/uL Mean Platelet Volume 7.9 6.9-10.8 fL Neutrophils (%) (Auto) 72.2 37.0-80.0 % Lymphocytes (%) (Auto) 17.6 10.0-50.0 % Monocytes (%) (Auto) 7.3 0.0-12.0 % Eosinophils (%) (Auto) 2.5 0.0-7.0 % Basophils (%) (Auto) 0.4 0.0-2.0 % Neutrophils # (Auto) 7.8 1.6-8.6 10 ^3/uL Lymphocytes # (Auto) 1.9 0.4-5.4 10 ^3/uL Monocytes # (Auto) 0.8 0-1.3 10 ^3/uL Eosinophils # (Auto) 0.3 0-0.8 10 ^3/uL Basophils # (Auto) 0 0-0.2 10 ^3/uL Nucleated Red Blood Cells 0.1 % Sodium Level 140 136-145 mmol/L Potassium Level 3.6 3.5-5.1 mmol/L Chloride Level 107 98-107 mmol/L Carbon Dioxide Level 24 20-31 mmol/L Anion Gap 9 5-15 Blood Urea Nitrogen 16 9-23 mg/dL Creatinine 1.06 0.700-1.30 mg/dL Glomerular Filtration Rate Calc 83 >90 mL/min BUN/Creatinine Ratio 15.1 10.0-20.0 Serum Glucose 137 H 74-106 mg/dL Calcium Level 9.0 8.7-10.4 mg/dL Time of 1ST Reevaluation: 02:00 Reevaluation 1ST: Unchanged Patient Education/Counseling: Need For Follow Up Family Education/Counseling: No Family Present SEPSIS Sepsis Screen Physician Orders Ct Ab Pel Wo Con-No Oral Or Iv (06/07/25 01:40) Urinalysis (06/07/25 01:40) Vital Signs Date Time Temp Pulse Resp B/P (MAP) Pulse Ox O2 Delivery O2 Flow Rate FiO2 06/07/25 01:30 97.9 72 15 147/85 (105) 95 97.9 Laboratory Tests Test 06/07/25 01:48 White Blood Count 10.9 10^3/uL (4.4-10.8) H Departure 1 Departure Time of Disposition: 04:23 Impression: Primary Impression: Nephrolithiasis Additional Impression: Hydronephrosis Comments MDM: Moderate right hydronephrosis secondary to a partially obstructing proximal ureteral calculus measuring 10 mm. Mild right perinephric stranding. No evidence of left hydronephrosis or nephrolithiasis. 1.7 cm exophytic left interpolar renal cortical cyst. Extensive evaluation was performed in attempt to identify or rule out: (See differential diagnosis section) The following tests were ordered, and results were reviewed by me and discussed with patient: (See diagnostic results section) The following test were independently interpreted by me: N/A I reviewed and agreed with the following test results read by other providers: N/A I reviewed the following notes from the pt's past medical encounters: N/A Additional information was gathered from interviewing the following independent historians: N/A Discussion of management or test interpretation with external physician/other qualified health healthcare administration intern: N/A Addressed [ ]one or more chronic illnesses with severe exacerbation, progression, or side effects of treatment: [ ]an acute or chronic illness that poses a threat to life or bodily function: [ ] Decision regarding hospitalization or escalation of hospital level of care: Risk and benefits of admission for further treatment of patient's condition was considered. Due to patient's current clinical condition, high risk of decline and poor outcome if discharged and need for further inpatient management and monitoring, patient will be admitted to the hospital. Drug therapy requiring intensive monitoring for toxicity: N/A Parenteral controlled substances: N/A Decision regarding elective major surgery with identified patient or procedure risk factors: N/A Decision regarding emergency major surgery: N/A Decision not to resuscitate or to de-escalate care because of poor prognosis: N/A Diagnosis or treatment significantly limited by social determinants of health: N/A Decision regarding hospitalization or escalation of hospital level of care: Risks and benefits of admission for further treatment of patient's condition was considered however due to patient's stable condition patient will be discharged to follow up closely or return to care for worsening of condition or inability to follow up. Critical Care Note Critical Care Time?: No Stability Stability form required: No I personally scribed for CLINTON CUTLER MD ([email or web address]) on 06/07/25 at 01:57. Electronically submitted by Prachi Hodges ([email or web address]). CLINTON CUTLER MD Jun 07, 2025 01:57
[2025-06-07 02:00] LABS: Hematocrit 39.8 % (41.0-53.0); Hemoglobin 14.0 g/dL (13.5-17.5); Mean Corpuscular Hemoglobin 29.0 pg (28.0-32.0); Mean Corpuscular Volume 82.4 fL (80.0-100.0); Nucleated Red Blood Cells % 0.1 %
[2025-06-07 02:24] LABS: Chloride 107 mmol/L (98-107); Potassium 3.6 mmol/L (3.5-5.1); Sodium 140 mmol/L (136-145)
[2025-06-07 02:25] LABS: Anion Gap 9 (5-15); Carbon Dioxide 24 mmol/L (20-31)
[2025-06-07 02:26] LABS: Calcium 9.0 mg/dL (8.7-10.4)
[2025-06-07 02:31] LABS: BUN/Creatinine Ratio 15.1 (10.0-20.0); Blood Urea Nitrogen 16 mg/dL (9-23)
[2025-06-07 02:34] LABS: Glucose 137 mg/dL (74-106)
--- NOTE | 2025-06-07 03:53 | DVH ---
Exam: CT CT AB PEL WO CON-NO ORAL OR IV History: Flank Pain Comparison Study: None Technique: Multidetector spiral CT of the abdomen was performed from lung bases to pubic symphysis. I maging was performed without IV contrast. Axial, coronal and sagittal multiplanar reformats were obta ined from the axial data set by the technologist. Radiation Dose : 1. Abdomen/Pelvis: CTDIvol 18.86 mGy, DLP 1143.06 mGy*cm. Findings: Evaluation of solid organs is limited due to lack of intravenous contrast use. Lung Bases: No acute or significant lung base finding. Cardiomegaly. No pleural or pericardial effus ion. Liver: The liver is normal in size. No focal lesions. Gallbladder and Biliary Tree: Unremarkable Spleen: Unremarkable Pancreas: The pancreas is grossly normal in appearance. Adrenal Glands: Unremarkable Kidneys: Moderate right hydronephrosis secondary to a partially obstructing proximal ureteral calculu s measuring 10 mm. Mild right perinephric stranding. No evidence of left hydronephrosis or nephrolith iasis. 1.7 cm exophytic left interpolar renal cortical cyst. Bladder: Grossly unremarkable for degree of distention. Bowel: The stomach is grossly normal in appearance. Small bowel and colon are normal in caliber and d istribution. The appendix is not visualized; however, no secondary findings of acute appendicitis kalani ntified. Ascites: Absent Lymphadenopathy: No mesenteric, retroperitoneal or periportal lymphadenopathy. Abdominal Wall and Mesentery: Small fat containing umbilical hernia. Vasculature: The visualized abdominal aorta is normal in size and caliber. Evaluation of abdominal a nd pelvic vessels is limited due to lack of intravenous contrast. Pelvic Organs: The prostate is enlarged, measuring 5.9 cm transverse.. Right inguinal hernia contain s fat and a portion of the urinary bladder. Musculoskeletal: No aggressive focal bony lesions, acute fractures or dislocation. IMPRESSION: 1. Moderate right hydronephrosis and mild perinephric inflammatory change secondary to a partially ob structing proximal ureteral calculus. 2. Cardiomegaly. 3. Prostatomegaly. 4. Right inguinal hernia containing a portion of the urinary bladder. Radiation optimization: All CT scans at this facility use at least one of these dose optimization simi hniques: automated exposure control mA and/or kV adjustment per patient size (includes targeted exam s where dose is matched to clinical indication) or iterative reconstruction.
[2025-06-07] MEDS: SODIUM CHLORIDE 0.9% 1,000 ML IV ONE (04:44)
[2025-06-07] MEDS ORDERED: ACETAMINOPHEN 325 MG TAB PO PRN (04:45)
[2025-06-07] MEDS ORDERED: ONDANSETRON HCL 4 MG/2 ML VIAL IV PRN (04:45)
[2025-06-07] MEDS ORDERED: MORPHINE SULFATE INJ 2 MG/ml SYRG IV PRN (04:45)
[2025-06-07] MEDS: ACETAMINOPHEN 325 MG TAB PO ONE (04:51)
[2025-06-07] MEDS: KETOROLAC TROMETH 30 MG/ML 1ML VIAL IM ONE (04:52)
[2025-06-07] MEDS: TAMSULOSIN HYDROCHLORIDE 0.4 MG CAP PO ONE (05:06)
[2025-06-07] MEDS: KETOROLAC TROMETH 30 MG/ML 1ML VIAL IV ONE (05:07)
[2025-06-07 06:31] LABS: Urine Protein, UAD 1+ (Negative)
--- NOTE | 2025-06-07 08:52 | DVHINCON2 ---
Date of service: Jun 07, 2025 History of Present Illness Home Meds Active Scripts Azithromycin (Zithromax) 250 Mg Tab, 250 MG PO DAILY, #6 TAB Take 2 tablets the first day, then 1 tablet daily until finish Prov:ANKUR FLORES MD 12/19/23 Reported Medications Quetiapine Fumerate (QUETIAPINE FUMARATE) 25 Mg Tab, 1 TAB PO QPM 12/16/23 Bupropion Hcl (Bupropion Hcl) 100 Mg Tab, 200 MG PO DAILY for 30 Days, MG 09/30/20 Naproxen (NAPROSYN TABLET) 500 Mg Tb, 1 TAB PO BID, #60 TAB 1 Refill 09/30/20 Carvedilol (Carvedilol) 12.5 Mg Tab, 12.5 MG PO Q12HR for 30 Days, MG 09/30/20 Lisinopril (Lisinopril) 40 Mg Tab, 40 MG PO BID for 30 Days, MG 09/30/20 Meloxicam (Meloxicam) 15 Mg Tab, 1 TAB PO DAILY, #30 TAB 2 Refills 09/30/20 Clonidine Hydrochloride (Clonidine Hcl) 0.1 Mg Tab, 0.1 MG PO BID for 30 Days, MG 09/30/20 Simvastatin (Simvastatin) 20 Mg Tab, 20 MG PO DAILY for 30 Days 09/30/20 Amlodipine Besylate (Amlodipine Besylate) 5 Mg Tab, 10 MG PO DAILY for 30 Days, MG 09/30/20 Baclofen (Baclofen) 10 Mg Tab, 20 MG PO TID PRN for PAIN SCALE 1 THRU 6 for 30 Days, MG 09/30/20 Potassium Chloride (POTASSIUM CHLORIDE CR) 10 Meq Tb, 20 MEQ PO DAILY, TAB 09/30/20 Past Medical History Patient Family History: Cerebrovascular accident (CVA) G8 FATHER Diabetes mellitus G8 FATHER Hypertension G8 FATHER Malignant neoplasm of breast GRANDMOM Thyroid disease G8 SISTER H&P Exam Vital Signs Vital Signs Date Time Temp Pulse Resp B/P (MAP) Pulse Ox O2 Delivery O2 Flow Rate FiO2 06/07/25 04:59 97.7 70 21 136/92 (107) 98 97.7 Labs/Xrays [address] [address] Ph: [phone] DIAGNOSTIC IMAGING Diagnostic Imaging Report : [id number] Signed PATIENT: MARIANNA HUTTON ACCT: [id number] UNIT: [id number] : 1970 LOC: ER ROOM / BED: / AGE / SEX: 54 / M ADM STATUS: REG ER SERVICE 0140 ORDERING PHYSICIAN: CLINTNO CUTLER MD PROCEDURE(s): ABPL - CT AB PEL WO CON-NO ORAL OR IV REASON: Flank Pain ORDER NUMBER(s): [id number], ACCESSION NUMBER(s): [id number] Exam: CT CT AB PEL WO CON-NO ORAL OR IV History: Flank Pain Comparison Study: None Technique: Multidetector spiral CT of the abdomen was performed from lung bases to pubic symphysis. Imaging was performed without IV contrast. Axial, coronal and sagittal multiplanar reformats were obtained from the axial data set by the technologist. Radiation Dose : 1. Abdomen/Pelvis: CTDIvol 18.86 mGy, DLP 1143.06 mGy*cm. Findings: Evaluation of solid organs is limited due to lack of intravenous contrast use. Lung Bases: No acute or significant lung base finding. Cardiomegaly. No pleural or pericardial effusion. Liver: The liver is normal in size. No focal lesions. Gallbladder and Biliary Tree: Unremarkable Spleen: Unremarkable Pancreas: The pancreas is grossly normal in appearance. Adrenal Glands: Unremarkable Kidneys: Moderate right hydronephrosis secondary to a partially obstructing proximal ureteral calculus measuring 10 mm. Mild right perinephric stranding. No evidence of left hydronephrosis or nephrolithiasis. 1.7 cm exophytic left interpolar renal cortical cyst. Bladder: Grossly unremarkable for degree of distention. Bowel: The stomach is grossly normal in appearance. Small bowel and colon are normal in caliber and distribution. The appendix is not visualized; however, no secondary findings of acute appendicitis identified. Ascites: Absent Lymphadenopathy: No mesenteric, retroperitoneal or periportal lymphadenopathy. Abdominal Wall and Mesentery: Small fat containing umbilical hernia. Vasculature: The visualized abdominal aorta is normal in size and caliber. Evaluation of abdominal and pelvic vessels is limited due to lack of intravenous contrast. Pelvic Organs: The prostate is enlarged, measuring 5.9 cm transverse.. Right inguinal hernia contains fat and a portion of the urinary bladder. Musculoskeletal: No aggressive focal bony lesions, acute fractures or dislocation. IMPRESSION: 1. Moderate right hydronephrosis and mild perinephric inflammatory change seco ndary to a partially obstructing proximal ureteral calculus. 2. Cardiomegaly. 3. Prostatomegaly. 4. Right inguinal hernia containing a portion of the urinary bladder. Radiation optimization: All CT scans at this facility use at least one of these dose optimization techniques: automated exposure control mA and/or kV adjustment per patient size (includes targeted exams where dose is matched to clinical indication) or iterative reconstruction. ATED BY: OZZIE DELVALLE MD DICTATED DATE/TIME: 06/07/25349 SIGNED BY: OZZIE DELVALLE MD SIGNED DATE/TIME: 06/07/25349 CC: Labs Test 06/07/25 01:48 06/07/25 01:40 Range/Units White Blood Count 10.9 H 4.4-10.8 10^3/uL Red Blood Count 4.83 4.5-5.90 10^6/uL Hemoglobin 14.0 13.5-17.5 g/dL Hematocrit 39.8 L 41.0-53.0 % Mean Corpuscular Volume 82.4 80.0-100.0 fL Mean Corpuscular Hemoglobin 29.0 28.0-32.0 pg Mean Corpuscular Hemoglobin Concent 35.2 32.0-36.0 g/dL Red Cell Distribution Width 13.6 11.8-14.3 % Platelet Count 287 140-450 10^3/uL Mean Platelet Volume 7.9 6.9-10.8 fL Neutrophils (%) (Auto) 72.2 37.0-80.0 % Lymphocytes (%) (Auto) 17.6 10.0-50.0 % Monocytes (%) (Auto) 7.3 0.0-12.0 % Eosinophils (%) (Auto) 2.5 0.0-7.0 % Basophils (%) (Auto) 0.4 0.0-2.0 % Neutrophils # (Auto) 7.8 1.6-8.6 10 ^3/uL Lymphocytes # (Auto) 1.9 0.4-5.4 10 ^3/uL Monocytes # (Auto) 0.8 0-1.3 10 ^3/uL Eosinophils # (Auto) 0.3 0-0.8 10 ^3/uL Basophils # (Auto) 0 0-0.2 10 ^3/uL Nucleated Red Blood Cells 0.1 % Sodium Level 140 136-145 mmol/L Potassium Level 3.6 3.5-5.1 mmol/L Chloride Level 107 98-107 mmol/L Carbon Dioxide Level 24 20-31 mmol/L Anion Gap 9 5-15 Blood Urea Nitrogen 16 9-23 mg/dL Creatinine 1.06 0.700-1.30 mg/dL Glomerular Filtration Rate Calc 83 >90 mL/min BUN/Creatinine Ratio 15.1 10.0-20.0 Serum Glucose 137 H 74-106 mg/dL Calcium Level 9.0 8.7-10.4 mg/dL Urine Color Light-orange Yellow Urine Clarity Turbid H Clear Urine pH 6.0 5.0-9.0 Urine Specific [place] 1.023 1.001-1.035 Urine Protein 1+ H Negative Urine Ketones Negative Negative Urine Blood 3+ H Negative /uL Urine Nitrite Negative Negative Urine Bilirubin Negative Negative Urine Urobilinogen Normal Negative mg/dL Urine Leukocyte Esterase Trace Negative /uL Urine RBC 4866 0 - 3 /hpf Urine Microscopic WBC 5 H 0-3 /HPF Urine Squamous Epithelial Cells None seen <5 /hpf Urine Calcium Oxalate Crystals Few None Seen Urine Bacteria None seen None Seen /hpf Urine Mucus Few None Seen Urine Glucose Normal Normal mg/dL Assessment/Plan Problem List: (1) Nephrolithiasis (2) Hydronephrosis (3) Hernia, inguinal, right (4) Abdominal pain (5) Renal stone Plan consult IR for right PCN placement lithotripsy TBA Plan discussed with: Patient, Other MARIAN POLLOCK NP Jun 07, 2025 08:52
[2025-06-07] MEDS: cefTRIAXone 1GM/50ML D5W 50 ML IV SCH (09:08)
[2025-06-07] MEDS: CARVEDILOL 12.5 MG TAB PO SCH (09:12)
[2025-06-07 11:17] LABS: INR 1.08 (0.9-1.15); Partial Thromboplastin Time 30.3 SEC (24.5-34.5); Prothrombin Time 11.4 sec (9.3-11.8)
--- NOTE | 2025-06-07 13:01 | DVHPN2 ---
Subjective Symptoms improving, pain control with p.r.n. meds. Nausea improving. Reviewed: H&P Changes from previous H/P or p: No Changes General: Per HPI Objective Vitals Vital Signs Date Time Temp Pulse Resp B/P (MAP) Pulse Ox O2 Delivery O2 Flow Rate FiO2 06/07/25 10:11 84 20 95 Room Air* 0 21 06/07/25 09:12 144/88 06/07/25 09:07 98.0 98.0 Exam GEN: Healthy appearing, well-developed, NAD. HEENT: NC/AT; MMM. CV: RRR, no m/r/g. LUNGS: CTAB, no w/r/c. ABD: Soft, NT/ND, NBS, no masses or organomegaly. EXT: skin Warm, well perfused. no rashes. No clubbing, cyanosis, or edema. NEURO: Ambulating with no limitations. No focal deficits. Medications Current Medications Medications Dose Ordered Sig/Gerardo Route Start Time Stop Time Status Last Admin Dose Admin Amlodipine Besylate 10 mg DAILY PO 06/07/25 10:00 06/07/25 09:12 10 MG Carvedilol 12.5 mg Q12HR PO 06/07/25 10:00 06/07/25 09:12 12.5 MG Atorvastatin Calcium 20 mg HS PO 06/07/25 22:00 Ceftriaxone Sodium 50 ml @ 100 mls/hr DAILY@09 IV 06/07/25 09:00 06/07/25 09:08 100 MLS/HR Acetaminophen/ Hydrocodone Bitart 1 tab Q4HP PRN PO 06/07/25 04:45 Ondansetron HCl 4 mg Q4HP PRN IV 06/07/25 04:45 Acetaminophen 650 mg Q6HP PRN PO 06/07/25 04:45 Morphine Sulfate 2 mg Q4HPRN PRN IV 06/07/25 04:45 Laboratory Results Laboratory Tests 06/07/25 01:48 Chemistry Test 06/07/25 01:48 Calcium Level 9.0 mg/dL (8.7-10.4) Coagulation Test 06/07/25 10:20 Prothrombin Time 11.4 sec (9.3-11.8) Prothrombin Time INR 1.08 (0.9-1.15) Activated Partial Thromboplast Time 30.3 SEC (24.5-34.5) Urinalysis Test 06/07/25 01:40 Urine Color Light-orange (Yellow) Urine Clarity Turbid (Clear) H Urine pH 6.0 (5.0-9.0) Urine Specific [place] 1.023 (1.001-1.035) Urine Protein 1+ (Negative) H Urine Ketones Negative (Negative) Urine Blood 3+ /uL (Negative) H Urine Nitrite Negative (Negative) Urine Bilirubin Negative (Negative) Urine Urobilinogen Normal mg/dL (Negative) Urine Leukocyte Esterase Trace /uL (Negative) Urine RBC 4866 /hpf (0 - 3) Urine Microscopic WBC 5 /HPF (0-3) H Urine Squamous Epithelial Cells None seen /hpf (<5) Urine Calcium Oxalate Crystals Few (None Seen) Urine Bacteria None seen /hpf (None Seen) Urine Mucus Few (None Seen) Urine Glucose Normal mg/dL (Normal) Labs and/or images reviewed: Labs reviewed by me, Image(s) reviewed by me Assessment/Plan Assessment/Plan 54 year old male presents to the ED via EMS with a chief complaint of RT flank pain onset 2 days. Patient states he has been experiencing RT flank pain for the past 2 days, noticed pain worsen this morning. Patient has had kidney stones in the past, states pain is similar. Patient was given 100 mcg Fentanyl by EMS in route to ED. Patient also states he is currently experiencing nausea, dark urine, possible hematuria. PMHx TIA, CVA with RT side deficts, kidney stones, HTN, depression. Denies chest pain, shortness of breath, vomiting, diarrhea, constipation, headache, melena. No other symptoms or modifying factors present at this time. 06/07-patient has history of TIA, CVA with right-sided deficits, history kidney stones, hypertension depression. . Presenting with a right flank pain. Patient called EMS due to pain was given fentanyl. Dark hematuria on exam possible hematuria. UA shows protein blood trace leuks, RBC high, WBC 5 mild. CTA abdomen pelvis with right hydronephrosis moderate, perinephric fat stranding and partially obstructing right ureteral calculus. Patient is started on pain control, prn antiemetics, IV fluids. Urology is consulted and recommend IR for right nephrostomy tube, pending decision for lithotripsy. Patient is started on IV antibiotics ceftriaxone. Right nephrolithiasis Obstructive right ureteral calculus intractable flank pain, right , due to above Intractable nausea, due to above P.o. intolerance, due to above Ruling out acute complicated cystitis History of recurrent nephrolithiasis History of CVA/TIA, HTN HLD 4 cm ascending aortic aneurysm -Continue home meds Coreg 12 b.i.d., Lipitor 20, amlodipine 10, -Continue IV antibiotics IV ceftriaxone -Continue p.r.n. pain control -Continue prn antiemetics Diet NPO DVT prophylaxis Lovenox GI prophylaxis-Protonix Med surge Full code Plan discussed with: Patient Date of Service: Jun 07, 2025 Billing Provider: MARK CELESTIN MD Common Visit Codes: [id number] INP/OBS CARE(HIGH) MARK CELESTIN MD Jun 07, 2025 13:01
[2025-06-07] MEDS: fentaNYL CITRATE 100 MCG/2 ML VL ONE (13:36)
[2025-06-07] MEDS: IODIXANOL 320MG/ML 100ML BTL IV ONE (13:36)
[2025-06-07] MEDS: MIDAZOLAM HCL 2MG/2ML 2ml VIAL (1mg/ml) ONE (13:36)
[2025-06-07] MEDS: LIDOCAINE 2%HCL (LOCAL ANESTH.) INJ 20ML MDV ONE (13:37)
--- NOTE | 2025-06-07 15:34 | DVH ---
PROCEDURE: Genitourinary catheter placement Procedural Personnel Attending physician(s): Mendoza Okeefe Fellow physician(s): None Resident physician(s): None Advanced practice provider(s): None Pre-procedure diagnosis: Right hydronephrosis Post-procedure diagnosis: Same Indication: Urinary obstruction No Additional clinical history: None Complications: No immediate complications. IMPRESSION: Right nephrostomy tube placement. Plan: Flush drain with 10 cc twice per day until urine clears, then once per day to maintain patency. PROCEDURE SUMMARY - Target organ: Unilateral [place] kidney - Image-guided placement of genitourinary catheter(s) - Additional procedure(s): None PROCEDURE DETAILS: Pre-procedure Consent: Informed consent for the procedure including risks, benefits and alternatives was obtained a nd time-out was performed prior to the procedure. Preparation: The site was prepared and draped using maximal sterile barrier technique including cutan eous antisepsis. Anesthesia/sedation Level of anesthesia/sedation: Moderate sedation (conscious sedation) Anesthesia/sedation administered by: Independent trained observer under attending supervision with co ntinuous monitoring of the patient s level of consciousness and physiologic status Total intra-service sedation time (minutes): 45 Genitourinary catheter placement Side:Right [place] Local anesthesia was administered. A needle was advanced into a lower pole calyx under ultrasound and fluoroscopy guidance. A wire was advanced, the tract was serially dilated and a nephrostomy tube was placed . Contrast injection was performed. Genitourinary catheter placed: 8.5 [place] multipurpose drain Findings: Note of proximal ureteral stone with passage of contrast only with pressurization of the co llecting system External catheter securement: Non-absorbable suture Additional genitourinary system intervention Side:NA Genitourinary intervention: None Location of intervention: Not applicable Device used: Not applicable Description of intervention: Not applicable Post-intervention findings: Not applicable Contrast Contrast agent: Omnipaque 350 Contrast volume (mL): 10 Radiation Dose Fluoroscopy time (mm:ss): 1:28 Reference air kerma (mGy): 12 Kerma area product (Not provided by imaging equipment) Additional Details Additional description of procedure: None Registry event: V/3/f Device used: Not applicable Equipment details: None Specimens removed: None. A sample was not sent for analysis. Estimated blood loss (mL): Less than 10 Standardized report: [email or web address] Attestation Signer name: Mendoza Okeefe I attest that I was present for the entire procedure. I reviewed the stored images and agree with the report as written.
[2025-06-07] MEDS: HYDROcodone-ACET 5/325MG TAB PO PRN (17:25)
--- NOTE | 2025-06-07 20:13 | DVHHP2 ---
History of Present Illness Reason for Visit: Flank pain History of Present Illness 54-year-old male presents for evaluation of right flank pain. Patient endorses a two day history of right flank pain with associated nausea and chills. Reports a history of kidney stones. Denies any other acute complaints at the moment. Past Medical History Kidney stones, hypertension, TIA, depression, CVA Past Surgical History Denies Family History Noncontributory Smoke: No ALCOHOL: none Drugs: None Lives: with Family Review of Systems Review of Systems Review of systems are currently negative otherwise addressed in HPI. Allergies: Coded Allergies: Banana (Verified Allergy, Unknown, 06/07/25) Medications Current Medications Medications Dose Ordered Sig/Gerardo Route Start Time Stop Time Status Last Admin Dose Admin Amlodipine Besylate 10 mg DAILY PO 06/07/25 10:00 06/07/25 09:12 10 MG Carvedilol 12.5 mg Q12HR PO 06/07/25 10:00 06/07/25 09:12 12.5 MG Atorvastatin Calcium 20 mg HS PO 06/07/25 22:00 Ceftriaxone Sodium 50 ml @ 100 mls/hr DAILY@09 IV 06/07/25 09:00 06/07/25 09:08 100 MLS/HR Acetaminophen/ Hydrocodone Bitart 1 tab Q4HP PRN PO 06/07/25 04:45 06/07/25 17:25 1 TAB Ondansetron HCl 4 mg Q4HP PRN IV 06/07/25 04:45 Acetaminophen 650 mg Q6HP PRN PO 06/07/25 04:45 Morphine Sulfate 2 mg Q4HPRN PRN IV 06/07/25 04:45 Exam Vital Signs Vital Signs Date Time Temp Pulse Resp B/P (MAP) Pulse Ox O2 Delivery O2 Flow Rate FiO2 06/07/25 18:09 80 18 98 Room Air* 0 21 06/07/25 17:05 138/105 (116) 06/07/25 15:20 98.0 98.0 Exam Gen: 54-year-old male in mild distress Skin: Warm, dry, normal color and texture, no rash. HEENT: Normocephalic atraumatic, mucous membranes moist and pink. Neck: Cervical and supraclavicular nodes normal without enlargement, trachea is midline, thyroid gland is normal without masses. Pulmonary: Clear to auscultation and percussion bilaterally. Cardiac: Regular rate and rhythm. No murmur Abdomen: Soft, right CVA tenderness, nondistended, bowel sounds present all 4 quadrants, no guarding, no rigidity, no organomegaly. Extremities: No cyanosis, clubbing, no edema Neuro: Cranial nerves II through XII grossly intact, normal affect and speech, no focal motor deficits. Labs/Xrays ORDERING PHYSICIAN: CLINTON CUTLER MD PROCEDURE(s): ABPL - CT AB PEL WO CON-NO ORAL OR IV REASON: Flank Pain ORDER NUMBER(s): [id number], ACCESSION NUMBER(s): [id number] Exam: CT CT AB PEL WO CON-NO ORAL OR IV History: Flank Pain Comparison Study: None Technique: Multidetector spiral CT of the abdomen was performed from lung bases to pubic symphysis. Imaging was performed without IV contrast. Axial, coronal and sagittal multiplanar reformats were obtained from the axial data set by the technologist. Radiation Dose : 1. Abdomen/Pelvis: CTDIvol 18.86 mGy, DLP 1143.06 mGy*cm. Findings: Evaluation of solid organs is limited due to lack of intravenous contrast use. Lung Bases: No acute or significant lung base finding. Cardiomegaly. No pleural or pericardial effusion. Liver: The liver is normal in size. No focal lesions. Gallbladder and Biliary Tree: Unremarkable Spleen: Unremarkable Pancreas: The pancreas is grossly normal in appearance. Adrenal Glands: Unremarkable Kidneys: Moderate right hydronephrosis secondary to a partially obstructing proximal ureteral calculus measuring 10 mm. Mild right perinephric stranding. No evidence of left hydronephrosis or nephrolithiasis. 1.7 cm exophytic left interpolar renal cortical cyst. Bladder: Grossly unremarkable for degree of distention. Bowel: The stomach is grossly normal in appearance. Small bowel and colon are normal in caliber and distribution. The appendix is not visualized; however, no secondary findings of acute appendicitis identified. Ascites: Absent Lymphadenopathy: No mesenteric, retroperitoneal or periportal lymphadenopathy. Abdominal Wall and Mesentery: Small fat containing umbilical hernia. Vasculature: The visualized abdominal aorta is normal in size and caliber. Evaluation of abdominal and pelvic vessels is limited due to lack of intravenous contrast. Pelvic Organs: The prostate is enlarged, measuring 5.9 cm transverse.. Right inguinal hernia contains fat and a portion of the urinary bladder. Musculoskeletal: No aggressive focal bony lesions, acute fractures or dislocation. IMPRESSION: 1. Moderate right hydronephrosis and mild perinephric inflammatory change secondary to a partially obstructing proximal ureteral calculus. 2. Cardiomegaly. 3. Prostatomegaly. 4. Right inguinal hernia containing a portion of the urinary bladder. Radiation optimization: All CT scans at this facility use at least one of these dose optimization techniques: automated exposure control mA and/or kV adjustment per patient size (includes targeted exams where dose is matched to clinical indication) or iterative reconstruction. Labs Test 06/07/25 10:20 06/07/25 01:48 06/07/25 01:40 Range/Units Prothrombin Time 11.4 9.3-11.8 sec Prothrombin Time INR 1.08 0.9-1.15 Activated Partial Thromboplast Time 30.3 24.5-34.5 SEC White Blood Count 10.9 H 4.4-10.8 10^3/uL Red Blood Count 4.83 4.5-5.90 10^6/uL Hemoglobin 14.0 13.5-17.5 g/dL Hematocrit 39.8 L 41.0-53.0 % Mean Corpuscular Volume 82.4 80.0-100.0 fL Mean Corpuscular Hemoglobin 29.0 28.0-32.0 pg Mean Corpuscular Hemoglobin Concent 35.2 32.0-36.0 g/dL Red Cell Distribution Width 13.6 11.8-14.3 % Platelet Count 287 140-450 10^3/uL Mean Platelet Volume 7.9 6.9-10.8 fL Neutrophils (%) (Auto) 72.2 37.0-80.0 % Lymphocytes (%) (Auto) 17.6 10.0-50.0 % Monocytes (%) (Auto) 7.3 0.0-12.0 % Eosinophils (%) (Auto) 2.5 0.0-7.0 % Basophils (%) (Auto) 0.4 0.0-2.0 % Neutrophils # (Auto) 7.8 1.6-8.6 10 ^3/uL Lymphocytes # (Auto) 1.9 0.4-5.4 10 ^3/uL Monocytes # (Auto) 0.8 0-1.3 10 ^3/uL Eosinophils # (Auto) 0.3 0-0.8 10 ^3/uL Basophils # (Auto) 0 0-0.2 10 ^3/uL Nucleated Red Blood Cells 0.1 % Sodium Level 140 136-145 mmol/L Potassium Level 3.6 3.5-5.1 mmol/L Chloride Level 107 98-107 mmol/L Carbon Dioxide Level 24 20-31 mmol/L Anion Gap 9 5-15 Blood Urea Nitrogen 16 9-23 mg/dL Creatinine 1.06 0.700-1.30 mg/dL Glomerular Filtration Rate Calc 83 >90 mL/min BUN/Creatinine Ratio 15.1 10.0-20.0 Serum Glucose 137 H 74-106 mg/dL Calcium Level 9.0 8.7-10.4 mg/dL Urine Color Light-orange Yellow Urine Clarity Turbid H Clear Urine pH 6.0 5.0-9.0 Urine Specific [place] 1.023 1.001-1.035 Urine Protein 1+ H Negative Urine Ketones Negative Negative Urine Blood 3+ H Negative /uL Urine Nitrite Negative Negative Urine Bilirubin Negative Negative Urine Urobilinogen Normal Negative mg/dL Urine Leukocyte Esterase Trace Negative /uL Urine RBC 4866 0 - 3 /hpf Urine Microscopic WBC 5 H 0-3 /HPF Urine Squamous Epithelial Cells None seen <5 /hpf Urine Calcium Oxalate Crystals Few None Seen Urine Bacteria None seen None Seen /hpf Urine Mucus Few None Seen Urine Glucose Normal Normal mg/dL SEPSIS Sepsis Screen Date sepsis recognized/suspect: Jun 07, 2025 Time Sepsis recognized/suspect: 0130 Recent Procedure: No On Antibiotic Therapy: No Respiratory Rate >20: No Heart Rate >90: No Temp<36 C (96.8 F) or >38.3 C: No SBP <90 or MAP <65 mmHG: No New Acute Mental Status Change: No Is the patient on CPAP, BIPAP,: No Physician Orders Us Guidance For Needle Placeme (06/07/25 12:45) Percutaneous Nephrostomy (06/07/25 14:03) Comprehensive Metabolic Panel (06/08/25 04:00) Complete Blood Count (06/08/25 04:00) Post Cath Vital Signs Q 15min (06/07/25 ) Post Cath Activity Protocol (06/07/25 14:22) Cardiac Diet-2gna,Lofat,Lochol (06/07/25 Dinner) Communication Order (06/07/25 16:42) Vital Signs Date Time Temp Pulse Resp B/P (MAP) Pulse Ox O2 Delivery O2 Flow Rate FiO2 06/07/25 18:09 80 18 98 Room Air* 0 21 06/07/25 17:05 78 14 138/105 (116) 93 06/07/25 16:20 61 12 149/101 (117) 91 06/07/25 15:50 70 12 125/81 (96) 97 06/07/25 15:20 98.0 73 12 132/9 (50) 94 98.0 06/07/25 14:50 76 12 135/94 (108) 92 06/07/25 14:35 76 12 130/103 (112) 92 06/07/25 14:20 72 19 139/96 (110) 93 06/07/25 14:12 72 15 132/92 (105) 93 06/07/25 13:36 120/66 Medications Medications Dose Ordered Sig/Gerardo Route Start Time Stop Time Status Last Admin Dose Admin Amlodipine Besylate 10 mg DAILY PO 06/07/25 10:00 06/07/25 09:12 10 MG Carvedilol 12.5 mg Q12HR PO 06/07/25 10:00 06/07/25 09:12 12.5 MG Ceftriaxone Sodium 50 ml @ 100 mls/hr DAILY@09 IV 06/07/25 09:00 06/07/25 09:08 100 MLS/HR Fentanyl Citrate 100 mcg STK-MED ONCE .ROUTE 06/07/25 13:36 06/07/25 13:34 DC 06/07/25 13:36 100 MCG Iodixanol 32,000 mg STK-MED ONCE IV 06/07/25 13:36 06/07/25 13:35 DC 06/07/25 13:36 3,200 MG Midazolam HCl 2 mg STK-MED ONCE .ROUTE 06/07/25 13:36 06/07/25 13:35 DC 06/07/25 13:36 2 MG Assessment/Plan Assessment/Plan Assessment Nephrolithiasis Right hydronephrosis Hypertension Plan Admit the patient to [facility] to the hospitalist Pain management Rocephin Nephrology consultation Continue treatment per orders. Plan discussed with: Patient My Orders Orders - ELDA CHIRINOS Procedure Category Date Status Time Amlodipine Tablet PHA 06/07/25 In Process (Norvasc Tablet) 10:00 Carvedilol Tablet PHA 06/07/25 In Process (Coreg Tablet) 10:00 Atorvastatin (Lipitor) PHA 06/07/25 In Process 22:00 * Urology Consult CONS 06/07/25 Transmitted 04:40 Ceftriaxone 1gm/50ml PHA 06/07/25 In Process D5w (Rocephin) 09:00 Basic Metabolic Panel LAB 06/08/25 Verified 04:00 Admit ADMIT 06/07/25 Transmitted 04:40 Hydrocodone-Acet PHA 06/07/25 In Process 5/325mg Tab ([place] 04:45 Ondansetron Hcl PHA 06/07/25 In Process (Zofran) 04:45 Complete Blood Count LAB 06/08/25 Verified 04:00 Condition: Stable ELDA 06/07/25 In Process 04:40 Acetaminophen Tablet PHA 06/07/25 In Process (Tylenol Tablet) 04:45 Bedrest With Bathroom ELDA 06/07/25 In Process Privileg 04:40 Morphine Sulfate PHA 06/07/25 In Process Injection 04:45 Date of Service: Jun 07, 2025 Billing Provider: ELDA CHIRINOS Common Visit Codes: [id number] INP/OBS CARE (MOD) ELDA CHIRINOS Jun 07, 2025 20:13
[2025-06-07] MEDS: ATORVASTATIN 20 MG TAB PO SCH (20:47)
[2025-06-07] MEDS ORDERED: QUET100T47 PO (21:01)
[2025-06-07] MEDS ORDERED: CHOL20007 PO (21:01)
[2025-06-08 01:00] VITALS: BP 113/76; PULSE 61; RESP 18; TEMP 97.7; O2SAT 97
[2025-06-08 05:00] VITALS: BP 135/87; PULSE 71; RESP 18; TEMP 97.8; O2SAT 95
[2025-06-08 08:00] VITALS: PULSE 80; RESP 18; O2SAT 98
--- NOTE | 2025-06-08 08:22 | DVH ---
PROCEDURE: Genitourinary catheter placement Procedural Personnel Attending physician(s): Mendoza Okeefe Fellow physician(s): None Resident physician(s): None Advanced practice provider(s): None Pre-procedure diagnosis: Right hydronephrosis Post-procedure diagnosis: Same Indication: Urinary obstruction No Additional clinical history: None Complications: No immediate complications. IMPRESSION: Right nephrostomy tube placement. Plan: Flush drain with 10 cc twice per day until urine clears, then once per day to maintain patency. PROCEDURE SUMMARY - Target organ: Unilateral [place] kidney - Image-guided placement of genitourinary catheter(s) - Additional procedure(s): None PROCEDURE DETAILS: Pre-procedure Consent: Informed consent for the procedure including risks, benefits and alternatives was obtained a nd time-out was performed prior to the procedure. Preparation: The site was prepared and draped using maximal sterile barrier technique including cutan eous antisepsis. Anesthesia/sedation Level of anesthesia/sedation: Moderate sedation (conscious sedation) Anesthesia/sedation administered by: Independent trained observer under attending supervision with co ntinuous monitoring of the patient s level of consciousness and physiologic status Total intra-service sedation time (minutes): 45 Genitourinary catheter placement Side:Right [place] Local anesthesia was administered. A needle was advanced into a lower pole calyx under ultrasound and fluoroscopy guidance. A wire was advanced, the tract was serially dilated and a nephrostomy tube was placed . Contrast injection was performed. Genitourinary catheter placed: 8.5 [place] multipurpose drain Findings: Note of proximal ureteral stone with passage of contrast only with pressurization of the co llecting system External catheter securement: Non-absorbable suture Additional genitourinary system intervention Side:NA Genitourinary intervention: None Location of intervention: Not applicable Device used: Not applicable Description of intervention: Not applicable Post-intervention findings: Not applicable Contrast Contrast agent: Omnipaque 350 Contrast volume (mL): 10 Radiation Dose Fluoroscopy time (mm:ss): 1:28 Reference air kerma (mGy): 12 Kerma area product (Not provided by imaging equipment) Additional Details Additional description of procedure: None Registry event: V/3/f Device used: Not applicable Equipment details: None Specimens removed: None. A sample was not sent for analysis. Estimated blood loss (mL): Less than 10 Standardized report: [email or web address] Attestation Signer name: Mendoza Okeefe I attest that I was present for the entire procedure. I reviewed the stored images and agree with the report as written.
[2025-06-08 09:00] VITALS: BP 150/111; PULSE 83; RESP 18; TEMP 98.2; O2SAT 95
[2025-06-08 09:31] LABS: Hematocrit 43.5 % (41.0-53.0); Hemoglobin 15.5 g/dL (13.5-17.5); Mean Corpuscular Hemoglobin 29.1 pg (28.0-32.0); Mean Corpuscular Volume 81.6 fL (80.0-100.0); Nucleated Red Blood Cells % 0.0 %
[2025-06-08 10:15] LABS: Alanine Aminotransferase 15 U/L (7-40); Albumin 4.4 g/dL (3.2-4.8); Alkaline Phosphatase 88 U/L (46-116); Anion Gap 11 (5-15); BUN/Creatinine Ratio 12.5 (10.0-20.0); Bilirubin, Total 0.7 mg/dL (0.2-1.0); Blood Urea Nitrogen 10 mg/dL (9-23); Calcium 9.5 mg/dL (8.7-10.4); Carbon Dioxide 24 mmol/L (20-31); Total Protein 6.6 g/dL (5.7-8.2)
[2025-06-08 10:17] LABS: Chloride 103 mmol/L (98-107); Glucose 144 mg/dL (74-106); Potassium 3.2 mmol/L (3.5-5.1); Sodium 138 mmol/L (136-145)
[2025-06-08 13:00] VITALS: BP 141/108; PULSE 87; RESP 17; TEMP 98.1; O2SAT 97
--- NOTE | 2025-06-08 14:49 | DVHPN2 ---
Subjective Symptoms improving, pain control with p.r.n. meds. Nausea improving. Reviewed: H&P Changes from previous H/P or p: No Changes General: Per HPI Objective Vitals Vital Signs Date Time Temp Pulse Resp B/P (MAP) Pulse Ox O2 Delivery O2 Flow Rate FiO2 06/08/25 13:00 98.1 87 17 141/108 (119) 97 98.1 06/08/25 08:00 Room Air* 0 21 Intake/Output Intake and Output 06/08/25 07:00 Intake Total 550 ml Output Total 700 ml Balance -150 ml Intake Oral 500 ml IV Total 50 ml Output Urine Total 700 ml Exam GEN: Healthy appearing, well-developed, NAD. HEENT: NC/AT; MMM. CV: RRR, no m/r/g. LUNGS: CTAB, no w/r/c. ABD: Soft, NT/ND, NBS, no masses or organomegaly. R PCNL w blood tingued urine. EXT: skin Warm, well perfused. no rashes. No clubbing, cyanosis, or edema. NEURO: Ambulating with no limitations. No focal deficits. Medications Current Medications Medications Dose Ordered Sig/Gerardo Route Start Time Stop Time Status Last Admin Dose Admin Amlodipine Besylate 10 mg DAILY PO 06/07/25 10:00 06/08/25 08:20 10 MG Carvedilol 12.5 mg Q12HR PO 06/07/25 10:00 06/08/25 08:19 12.5 MG Atorvastatin Calcium 20 mg HS PO 06/07/25 22:00 06/07/25 20:47 20 MG Ceftriaxone Sodium 50 ml @ 100 mls/hr DAILY@09 IV 06/07/25 09:00 06/08/25 08:20 100 MLS/HR Acetaminophen/ Hydrocodone Bitart 1 tab Q4HP PRN PO 06/07/25 04:45 06/07/25 17:25 1 TAB Ondansetron HCl 4 mg Q4HP PRN IV 06/07/25 04:45 Acetaminophen 650 mg Q6HP PRN PO 06/07/25 04:45 Morphine Sulfate 2 mg Q4HPRN PRN IV 06/07/25 04:45 Laboratory Results Laboratory Tests 06/08/25 08:59 Chemistry Test 06/08/25 08:59 Albumin 4.4 g/dL (3.2-4.8) Calcium Level 9.5 mg/dL (8.7-10.4) Total Protein 6.6 g/dL (5.7-8.2) LFT Test 06/08/25 08:59 Alanine Aminotransferase (ALT) 15 U/L (7-40) Alkaline Phosphatase 88 U/L (46-116) Aspartate Amino Transferase (AST) 17 U/L (13-40) Total Bilirubin 0.7 mg/dL (0.2-1.0) Urinalysis Test 06/07/25 01:40 Urine Color Light-orange (Yellow) Urine Clarity Turbid (Clear) H Urine pH 6.0 (5.0-9.0) Urine Specific [place] 1.023 (1.001-1.035) Urine Protein 1+ (Negative) H Urine Ketones Negative (Negative) Urine Blood 3+ /uL (Negative) H Urine Nitrite Negative (Negative) Urine Bilirubin Negative (Negative) Urine Urobilinogen Normal mg/dL (Negative) Urine Leukocyte Esterase Trace /uL (Negative) Urine RBC 4866 /hpf (0 - 3) Urine Microscopic WBC 5 /HPF (0-3) H Urine Squamous Epithelial Cells None seen /hpf (<5) Urine Calcium Oxalate Crystals Few (None Seen) Urine Bacteria None seen /hpf (None Seen) Urine Mucus Few (None Seen) Urine Glucose Normal mg/dL (Normal) Labs and/or images reviewed: Labs reviewed by me, Image(s) reviewed by me Assessment/Plan Assessment/Plan 54 year old male presents to the ED via EMS with a chief complaint of RT flank pain onset 2 days. Patient states he has been experiencing RT flank pain for the past 2 days, noticed pain worsen this morning. Patient has had kidney stones in the past, states pain is similar. Patient was given 100 mcg Fentanyl by EMS in route to ED. Patient also states he is currently experiencing nausea, dark urine, possible hematuria. PMHx TIA, CVA with RT side deficts, kidney stones, HTN, depression. Denies chest pain, shortness of breath, vomiting, diarrhea, constipation, headache, melena. No other symptoms or modifying factors present at this time. 06/07-patient has history of TIA, CVA with right-sided deficits, history kidney stones, hypertension depression. . Presenting with a right flank pain. Patient called EMS due to pain was given fentanyl. Dark hematuria on exam possible hematuria. UA shows protein blood trace leuks, RBC high, WBC 5 mild. CTA abdomen pelvis with right hydronephrosis moderate, perinephric fat stranding and partially obstructing right ureteral calculus. Patient is started on pain control, prn antiemetics, IV fluids. Urology is consulted and recommend IR for right nephrostomy tube, pending decision for lithotripsy. Patient is started on IV antibiotics ceftriaxone. 06/08 R PCN inserted yesterday. but has bloody tingued urine , not much output though. concern for obstruction/clotted PCN. urology wants eswl/cystoscopy outpatient. but given blood in PCN right sided, urology and radiology want flush and good flow before clearing for dc. comunicated with RN to flush and recheck for good uop in PCN bag. may need to keep inpatient +1 night to ensure good flow from R PCN into bag. if no urine output, dc will have to be held until wednesday and tomorrow (sat 06/09), will need CT abd nonCon to assess location of R PCN tube (per radiology recs). -update: After flushing good amount of urine output is coming out and it is clear. See discharge summary for updates and discharge notes diagnosis: Right nephrolithiasis s/p R nephrostomy Obstructive right ureteral calculus intractable flank pain, right , due to above Intractable nausea, due to above P.o. intolerance, due to above Ruling out acute complicated cystitis History of recurrent nephrolithiasis History of CVA/TIA, HTN HLD 4 cm ascending aortic aneurysm Plan: -Continue home meds Coreg 12 b.i.d., Lipitor 20, amlodipine 10, -Continue IV antibiotics IV ceftriaxone -Continue p.r.n. pain control -Continue prn antiemetics Diet NPO DVT prophylaxis Lovenox GI prophylaxis-Protonix Med surge Full code Plan discussed with: Patient Date of Service: Jun 08, 2025 Billing Provider: MRAK CELESTIN MD Common Visit Codes: NOT BILLABLE MARK CELESTIN MD Jun 08, 2025 14:49
[2025-06-08 16:43] VITALS: BP 154/101; PULSE 85; RESP 17; TEMP 98.2; O2SAT 95
[2025-06-08] MEDS ORDERED: ZOFR4T PO (18:30)
[2025-06-08] MEDS ORDERED: HYDR-4902 PO (18:30)
[2025-06-08] MEDS ORDERED: AUG875T PO (18:30)
--- NOTE | 2025-06-08 18:39 | DVHDS2 ---
Discharge Summary Date of Admission Jun 07, 2025 at 04:40 Date of Discharge: Jun 08, 2025 Labs/Diagnostic Data: Laboratory Results Test 06/08/25 08:59 06/07/25 10:20 06/07/25 01:40 White Blood Count 7.8 10^3/uL (4.4-10.8) Red Blood Count 5.33 10^6/uL (4.5-5.90) Hemoglobin 15.5 g/dL (13.5-17.5) Hematocrit 43.5 % (41.0-53.0) Mean Corpuscular Volume 81.6 fL (80.0-100.0) Mean Corpuscular Hemoglobin 29.1 pg (28.0-32.0) Mean Corpuscular Hemoglobin Concent 35.7 g/dL (32.0-36.0) Red Cell Distribution Width 14.0 % (11.8-14.3) Platelet Count 298 10^3/uL (140-450) Mean Platelet Volume 8.0 fL (6.9-10.8) Neutrophils (%) (Auto) 67.2 % (37.0-80.0) Lymphocytes (%) (Auto) 20.3 % (10.0-50.0) Monocytes (%) (Auto) 7.6 % (0.0-12.0) Eosinophils (%) (Auto) 4.2 % (0.0-7.0) Basophils (%) (Auto) 0.7 % (0.0-2.0) Neutrophils # (Auto) 5.2 10 ^3/uL (1.6-8.6) Lymphocytes # (Auto) 1.6 10 ^3/uL (0.4-5.4) Monocytes # (Auto) 0.6 10 ^3/uL (0-1.3) Eosinophils # (Auto) 0.3 10 ^3/uL (0-0.8) Basophils # (Auto) 0.1 10 ^3/uL (0-0.2) Nucleated Red Blood Cells 0.0 % Sodium Level 138 mmol/L (136-145) Potassium Level 3.2 mmol/L (3.5-5.1) Chloride Level 103 mmol/L (98-107) Carbon Dioxide Level 24 mmol/L (20-31) Anion Gap 11 (5-15) Blood Urea Nitrogen 10 mg/dL (9-23) Creatinine 0.80 mg/dL (0.700-1.30) Glomerular Filtration Rate Calc 105 mL/min (>90) BUN/Creatinine Ratio 12.5 (10.0-20.0) Serum Glucose 144 mg/dL (74-106) Calcium Level 9.5 mg/dL (8.7-10.4) Total Bilirubin 0.7 mg/dL (0.2-1.0) Aspartate Amino Transferase (AST) 17 U/L (13-40) Alanine Aminotransferase (ALT) 15 U/L (7-40) Alkaline Phosphatase 88 U/L (46-116) Total Protein 6.6 g/dL (5.7-8.2) Albumin 4.4 g/dL (3.2-4.8) Prothrombin Time 11.4 sec (9.3-11.8) Prothrombin Time INR 1.08 (0.9-1.15) Activated Partial Thromboplast Time 30.3 SEC (24.5-34.5) Urine Color Light-orange (Yellow) Urine Clarity Turbid (Clear) Urine pH 6.0 (5.0-9.0) Urine Specific [place] 1.023 (1.001-1.035) Urine Protein 1+ (Negative) Urine Ketones Negative (Negative) Urine Blood 3+ /uL (Negative) Urine Nitrite Negative (Negative) Urine Bilirubin Negative (Negative) Urine Urobilinogen Normal mg/dL (Negative) Urine Leukocyte Esterase Trace /uL (Negative) Urine RBC 4866 /hpf (0 - 3) Urine Microscopic WBC 5 /HPF (0-3) Urine Squamous Epithelial Cells None seen /hpf (<5) Urine Calcium Oxalate Crystals Few (None Seen) Urine Bacteria None seen /hpf (None Seen) Urine Mucus Few (None Seen) Urine Glucose Normal mg/dL (Normal) Other Laboratory Tests 06/08/25 08:59 Brief Hx & Hospital Course: 54 year old male presents to the ED via EMS with a chief complaint of RT flank pain onset 2 days. Patient states he has been experiencing RT flank pain for the past 2 days, noticed pain worsen this morning. Patient has had kidney stones in the past, states pain is similar. Patient was given 100 mcg Fentanyl by EMS in route to ED. Patient also states he is currently experiencing nausea, dark urine, possible hematuria. PMHx TIA, CVA with RT side deficts, kidney stones, HTN, depression. Denies chest pain, shortness of breath, vomiting, diarrhea, constipation, headache, melena. No other symptoms or modifying factors present at this time. 06/07-patient has history of TIA, CVA with right-sided deficits, history kidney stones, hypertension depression. . Presenting with a right flank pain. Patient called EMS due to pain was given fentanyl. Dark hematuria on exam possible hematuria. UA shows protein blood trace leuks, RBC high, WBC 5 mild. CTA abdomen pelvis with right hydronephrosis moderate, perinephric fat stranding and partially obstructing right ureteral calculus. Patient is started on pain control, prn antiemetics, IV fluids. Urology is consulted and recommend IR for right nephrostomy tube, pending decision for lithotripsy. Patient is started on IV antibiotics ceftriaxone. 06/08 R PCN inserted yesterday. but has bloody tingued urine , not much output though. concern for obstruction/clotted PCN. urology wants eswl/cystoscopy outpatient. but given blood in PCN right sided, urology and radiology want flush and good flow before clearing for dc. comunicated with RN to flush and recheck for good uop in PCN bag. -after flushing and waiting and observation, RN notified there is increasing clear output in the nephrostomy tube bag. Patient remains stable vital signs stable. Patient is stable for discharge as per plan below. Diagnosis: Right nephrolithiasis s/p R nephrostomy Obstructive right ureteral calculus intractable flank pain, right , due to above Intractable nausea, due to above P.o. intolerance, due to above Ruling out acute complicated cystitis History of recurrent nephrolithiasis History of CVA/TIA, HTN HLD 4 cm ascending aortic aneurysm Discharge plan: -Take Augmentin 875 mg twice daily for 4 days -Take Zofran as needed for nausea up to 3 times daily as needed -Take Tylenol 1st for pain, 2nd take ibuprofen, if pain still not controlled take [place] 5 up to 3 times daily as needed. If pain still unresolved return to nearest emergency department. -If right nephrostomy tube bag starts having 0 flow, return to ER. If you develop intolerable pain with fevers and chills return to ER. If bag starts having pure blood output, return to ER. -Follow up with PCP to review discharge -Follow up with Urology for ongoing care and possible procedure to remove right kidney stone. Condition at Discharge: Fair Final Diagnosis/Problems List Right nephrolithiasis s/p R nephrostomy Obstructive right ureteral calculus intractable flank pain, right , due to above Intractable nausea, due to above P.o. intolerance, due to above Ruling out acute complicated cystitis History of recurrent nephrolithiasis History of CVA/TIA, HTN HLD 4 cm ascending aortic aneurysm Discharge Disposition: Home Discharge Instruct/Medications Scheduled Amlodipine Besylate (Amlodipine Besylate), 10 MG PO DAILY, (Reported) Amoxicillin & Pot Clavulanate (Augmentin Tablet), 875 MG PO BID Azithromycin (Zithromax), 250 MG PO DAILY Bupropion Hcl (Bupropion Hcl), 200 MG PO DAILY, (Reported) Carvedilol (Carvedilol), 12.5 MG PO Q12HR, (Reported) Cholecalciferol (Vitamin D3), 1 TAB PO DAILY, (Reported) Clonidine Hydrochloride (Clonidine Hcl), 0.1 MG PO BID, (Reported) Lisinopril (Lisinopril), 40 MG PO BID, (Reported) Meloxicam (Meloxicam), 1 TAB PO DAILY, (Reported) Naproxen (Naprosyn Tablet), 1 TAB PO BID, (Reported) Potassium Chloride (Potassium Chloride Cr), 20 MEQ PO DAILY, (Reported) Quetiapine Fumerate (Quetiapine Fumarate), 100 MG PO HS, (Reported) Simvastatin (Simvastatin), 20 MG PO DAILY, (Reported) Scheduled PRN Baclofen (Baclofen), 20 MG PO TID PRN for PAIN SCALE 1 THRU 6, (Reported) Hydrocodone-Acetaminophen (Hydrocodone Bitartrate/AC 5-325 mg), 1 TAB PO TIDP PRN Ondansetron Odt 4MG Tab (Zofran Po), 4 MG PO TIDP PRN Discontinued Medications Quetiapine Fumerate (Quetiapine Fumarate), 1 TAB PO QPM, (Reported) Discharge Statement: "Patient was advised to return to the ER or call 911 if any headaches, dizziness, shortness of breath, chest pain, abdominal pain, bleeding, fevers, or worsening of medical condition. Patient was counseled about treatment plan, medications, possible side effects, patientverbalized understanding. All questions were answered to the best of my ability. This discharge took greater then 30 minutes in planning, reviewing documentation, counseling the patient, and discussing with other team members." ASSESSMENT ASSESSMENT Assessment Date of Service: Jun 08, 2025 Billing Provider: MARK CELESTIN MD Common Visit Codes: 70393-OEQ/OBS DISCH DAY >30min MARK CELESTIN MD Jun 08, 2025 18:39
[2025-06-08] MEDS: LACTATED RINGER'S 500 ML IV SCH (18:45)
== END 2025-06-08 19:30 | disposition home or self-care (01) | DRG 690 ==
LOC: ER 01:25 → EDBD 01:25 → OVERFLOW 04:40 → EAST 17:51
PROVIDERS: ADMIT Student in an Organized Health Care Education/Training Program; ATTEND Student in an Organized Health Care Education/Training Program
PROC: 0T9030Z Drainage of Right Kidney with Drainage Device, Percutaneous Approach (ICD-10-PCS; principal; 2025-06-07)
PROC: BT111ZZ Fluoroscopy of Right Kidney using Low Osmolar Contrast (ICD-10-PCS; 2025-06-07)
PROC: 0T9030Z Drainage of Right Kidney with Drainage Device, Percutaneous Approach (ICD-10-PCS; 2025-06-08)
PROC: BT111ZZ Fluoroscopy of Right Kidney using Low Osmolar Contrast (ICD-10-PCS; 2025-06-08)
DX: N13.6 Pyonephrosis (principal); I71.21 Aneurysm of the ascending aorta, without rupture; I11.9 Hypertensive heart disease without heart failure; E11.9 Type 2 diabetes mellitus without complications; K40.90 Unilateral inguinal hernia, without obstruction or gangrene, not specified as recurrent; N28.1 Cyst of kidney, acquired; E78.5 Hyperlipidemia, unspecified; N40.0 Benign prostatic hyperplasia without lower urinary tract symptoms; Z93.6 Other artificial openings of urinary tract status; Z87.442 Personal history of urinary calculi; Z86.73 Personal history of transient ischemic attack (TIA), and cerebral infarction without residual deficits; Z85.3 Personal history of malignant neoplasm of breast; Z79.899 Other long term (current) drug therapy; Z91.018 Allergy to other foods
CPT/HCPCS: 36415; 50432; 74176; 74425; 76942; 80048; 80053; 81001; 85025; 85610; 85730; 96361; 96372; 96374; 99152; G0378; J1885; J2250; Q9967

== ENCOUNTER 2025-06-09 18:43 | Inpatient (IN) | payer OTHER, MEDICAID ==
[~2025-06-09] VITALS: Ht 167.6 cm; Wt 99.5 kg
[~2025-06-09 18:43] MED LIST changes: +AUG875T PO; +CHOL20007 PO; +HYDR-4902 PO; +QUET100T47 PO; -QUET1TAB11 PO; +ZOFR4T PO
[2025-06-09 19:18] LABS: Hematocrit 44.2 % (41.0-53.0); Hemoglobin 15.6 g/dL (13.5-17.5); Mean Corpuscular Hemoglobin 28.7 pg (28.0-32.0); Mean Corpuscular Volume 81.6 fL (80.0-100.0); Nucleated Red Blood Cells % 0.1 %
[2025-06-09 19:35] LABS: Alanine Aminotransferase 18 U/L (7-40); Albumin 4.8 g/dL (3.2-4.8); Alkaline Phosphatase 97 U/L (46-116); Anion Gap 10 (5-15); BUN/Creatinine Ratio 16.4 (10.0-20.0); Bilirubin, Total 0.7 mg/dL (0.2-1.0); Blood Urea Nitrogen 18 mg/dL (9-23); Calcium 10.2 mg/dL (8.7-10.4); Carbon Dioxide 26 mmol/L (20-31); Chloride 104 mmol/L (98-107); Glucose 103 mg/dL (74-106); Potassium 3.7 mmol/L (3.5-5.1); Sodium 140 mmol/L (136-145); Total Protein 7.3 g/dL (5.7-8.2)
[2025-06-09] MEDS: ONDANSETRON ODT 4 MG TAB PO ONE (20:54)
[2025-06-09] MEDS: HYDROmorphone HCL 2 MG/ML VL/or syr IV ONE (21:12)
[2025-06-09] MEDS: ONDANSETRON HCL 4 MG/2 ML VIAL IV ONE (21:12)
[2025-06-09 22:05] LABS: Urine Budding Yeast OCCASIONAL /hpf (None Seen); Urine Protein, UAD 1+ (Negative)
--- NOTE | 2025-06-09 22:09 | ED.PDOC ---
History of Present Illness HPI Comments 54 y/o M presents with nonradiating, right sided flank pain and occluded nephrostomy bag. Patient reports nephrostomy placement for 10mm occlusive right kidney stone 1.5x days ago. He is following instructions to come to the ED if pain and occlusion to tube occurs. Denies any additional acute symptoms at this time. Patient was hypertensive on arrival. Chief Complaint: Flank Pain Time Seen by MD: 18:50 Primary Care Provider: BEENA Reviewed Notes: Nurses Notes, Medications, Allergies Allergies: Coded Allergies: Banana (Verified Allergy, Unknown, 06/07/25) Home Meds Active Scripts Hydrocodone-Acetaminophen (Hydrocodone Bitartrate/AC 5-325 mg) 1 Tab Tab, 1 TAB PO TIDP PRN for 7 Days, #20 TAB 0 Refills Prov:MARK CELESTIN MD 06/08/25 Ondansetron Odt 4MG Tab (ZOFRAN PO) 4 Mg Tb, 4 MG PO TIDP PRN for 5 Days, #15 TAB 0 Refills ODT TAB-DISSOLVE IN MOUTH, THEN SWALLOW Prov:MARK CELESTIN MD 06/08/25 Amoxicillin & Pot Clavulanate (AUGMENTIN TABLET) 875 Mg Tb, 875 MG PO BID for 4 Days, #8 TAB 0 Refills Prov:MARK CELESTIN MD 06/08/25 Azithromycin (Zithromax) 250 Mg Tab, 250 MG PO DAILY, #6 TAB Take 2 tablets the first day, then 1 tablet daily until finish Prov:ANKUR FLORES MD 12/19/23 Reported Medications Cholecalciferol (VITAMIN D3) 2,000 Unit Tab, 1 TAB PO DAILY, #30 TAB 5 Refills 06/07/25 Quetiapine Fumerate (QUETIAPINE FUMARATE) 100 Mg Tab, 100 MG PO HS, TAB 06/07/25 Bupropion Hcl (Bupropion Hcl) 100 Mg Tab, 200 MG PO DAILY for 30 Days, MG 09/30/20 Naproxen (NAPROSYN TABLET) 500 Mg Tb, 1 TAB PO BID, #60 TAB 1 Refill 09/30/20 Carvedilol (Carvedilol) 12.5 Mg Tab, 12.5 MG PO Q12HR for 30 Days, MG 09/30/20 Lisinopril (Lisinopril) 40 Mg Tab, 40 MG PO BID for 30 Days, MG 09/30/20 Meloxicam (Meloxicam) 15 Mg Tab, 1 TAB PO DAILY, #30 TAB 2 Refills 09/30/20 Clonidine Hydrochloride (Clonidine Hcl) 0.1 Mg Tab, 0.1 MG PO BID for 30 Days, MG 09/30/20 Simvastatin (Simvastatin) 20 Mg Tab, 20 MG PO DAILY for 30 Days 09/30/20 Amlodipine Besylate (Amlodipine Besylate) 5 Mg Tab, 10 MG PO DAILY for 30 Days, MG 09/30/20 Baclofen (Baclofen) 10 Mg Tab, 20 MG PO TID PRN for PAIN SCALE 1 THRU 6 for 30 Days, MG 09/30/20 Potassium Chloride (POTASSIUM CHLORIDE CR) 10 Meq Tb, 20 MEQ PO DAILY, TAB 09/30/20 Discontinued Reported Medications Quetiapine Fumerate (QUETIAPINE FUMARATE) 25 Mg Tab, 1 TAB PO QPM 12/16/23 Information Source: Patient Mode of Arrival: Ambulatory Severity: Moderate Timing: Days Duration: Since onset Prehospital treatment: None Past Medical History PAST MEDICAL HISTORY: CVA, Depression, HTN, Kidney Stones, TIA Surgical History: Denies all surgeries Family History Family History: Reviewed,noncontributory to illness Social History Smoker: Non-Smoker Alcohol: Denies ETOH Use Drugs: Marijuana Lives In: Home Constitutional: denies: chills, diaphoresis, fatigue, fever, malaise, sweats, weakness, others EENTM: denies: blurred vision, double vision, ear bleeding, ear discharge, ear drainage, ear pain, ear ringing, eye pain, eye redness, hearing loss, mouth pain, mouth swelling, nasal discharge, nose bleeding, nose congestion, nose pain, photophobia, tearing, throat pain, throat swelling, voice changes, others Respiratory: denies: cough, hemoptysis, orthopnea, SOB at rest, shortness of breath, SOB with excertion, stridor, wheezing, others Cardiovascular: denies: chest pain, dizzy spells, diaphoresis, Dyspnea on exertion, edema, irregular heart beat, left arm pain, lightheadedness, palpitations, PND, syncope, others Gastrointestinal: denies: abdomen distended, abdominal pain, blood streaked bowels, constipated, diarrhea, dysphagia, difficulty swallowing, hematemesis, melena, nausea, poor appetite, poor fluid intake, rectal bleeding, rectal pain, vomiting, others Genitourinary: reports: others (Occluded right-sided nephrostomy); denies: burning, dysuria, flank pain, frequency, hematuria, incontinence, penile discharge, penile sore, pain, testicle pain, testicle swelling, urgency Neurological: denies: dizziness, fainting, headache, left sided numbness, left sided weakness, numbness, paresthesia, pre-existing deficit, right sided numbness, right sided weakness, seizure, speech problems, tingling, tremors, weakness, others Musculoskeletal: denies: back pain, gout, joint pain, joint swelling, muscle pain, muscle stiffness, neck pain, others Integumetry: denies: bruises, change in color, change in hair/nails, dryness, laceration, lesions, lumps, rash, wounds, others Allergic/Immunocompromised: denies: Difficulty Healing, Frequent Infections, Hives, Itching, others Hematologic/Lymphatic: denies: anemia, blood clots, easy bleeding, easy bruising, swollen glands, others Endocrine: denies: excessive hunger, excessive sweating, excessive thirst, excessive urination, flushing, intolerance to cold, intolerance to heat, unexplained weight gain, unexplained weight loss, others Psychiatric: denies: anxiety, bipolar disorder, depression, hopeless, panic disorder, schizophrenia, sleepless, suicidal, others All Other Systems: Reviewed and Negative (Comprehensive systems review obtained and negative except for what is stated in the HPI.) Physical Exam General Appearance: Moderate Distress (Quhn-bd-kaigsoia distress due to right- sided nephrostomy tube concerns and pain), Normal HEENT: Normal ENT Inspection, Pharynx Normal, TMs Normal Neck: Full Range of Motion, Non-Tender, Normal, Normal Inspection Respiratory: Chest Non-Tender, Lungs Clear, No Accessory Muscle Use, No Respiratory Distress, Normal Breath Sounds Cardiovascular: No Edema, No JVD, No Murmur, No Gallop, Normal Peripheral Pulses, Regular Rate/Rhythm Breast Exam: Deferred Gastrointestinal: Other (Patient displays what appears to be in occluded right- sided nephrostomy tube. Some scant blood noted in the patient's bag.) Genitalia: Deferred Pelvic: Deferred Rectal: Deferred Extremities: No calf tenderness, Normal capillary refill, Normal inspection, Normal range of motion, Non-tender, No pedal edema Neurologic: Alert, No Motor Deficits, Normal Affect, Normal Mood, No Sensory Deficits Cerebellar Function: Normal Reflexes: Normal Skin: Dry, Normal Color, Warm Lymphatic: No Adenopathy Was a procedure done? Was a procedure done?: No Differential Dx Considerations may include: post-op complication, UTI, obstructing kidney stone, among others X-Ray, Labs, Meds, VS Vital Signs Date Time Temp Pulse Resp B/P (MAP) Pulse Ox O2 Delivery O2 Flow Rate FiO2 06/09/25 21:12 90 18 143/97 06/09/25 21:01 98.0 90 17 143/97 (112) 96 98.0 06/09/25 21:01 90 17 96 Room Air 06/09/25 19:37 98.0 90 18 138/91 (107) 94 98.0 06/09/25 19:37 90 18 94 Room Air 06/09/25 18:55 98.7 98 13 147/100 (116) 97 98.7 Lab Test 06/09/25 21:20 06/09/25 19:06 Range/Units Urine Color Yellow Yellow Urine Clarity Turbid H Clear Urine pH 6.0 5.0-9.0 Urine Specific [place] 1.027 1.001-1.035 Urine Protein 1+ H Negative Urine Ketones Negative Negative Urine Blood 3+ H Negative /uL Urine Nitrite Negative Negative Urine Bilirubin Negative Negative Urine Urobilinogen Normal Negative mg/dL Urine Leukocyte Esterase 1+ Negative /uL Urine RBC 882 0 - 3 /hpf Urine Microscopic WBC 33 H 0-3 /HPF Urine Squamous Epithelial Cells Few <5 /hpf Urine Calcium Oxalate Crystals Few None Seen Urine Bacteria None seen None Seen /hpf Urine Mucus Few None Seen Urine Yeast (Budding) Occasional None Seen /hpf Urine Glucose Normal Normal mg/dL White Blood Count 11.1 #H 4.4-10.8 10^3/uL Red Blood Count 5.42 4.5-5.90 10^6/uL Hemoglobin 15.6 13.5-17.5 g/dL Hematocrit 44.2 41.0-53.0 % Mean Corpuscular Volume 81.6 80.0-100.0 fL Mean Corpuscular Hemoglobin 28.7 28.0-32.0 pg Mean Corpuscular Hemoglobin Concent 35.2 32.0-36.0 g/dL Red Cell Distribution Width 13.9 11.8-14.3 % Platelet Count 314 140-450 10^3/uL Mean Platelet Volume 7.8 6.9-10.8 fL Neutrophils (%) (Auto) 63.3 37.0-80.0 % Lymphocytes (%) (Auto) 24.0 10.0-50.0 % Monocytes (%) (Auto) 9.0 0.0-12.0 % Eosinophils (%) (Auto) 3.0 0.0-7.0 % Basophils (%) (Auto) 0.7 0.0-2.0 % Neutrophils # (Auto) 7.0 1.6-8.6 10 ^3/uL Lymphocytes # (Auto) 2.7 0.4-5.4 10 ^3/uL Monocytes # (Auto) 1.0 0-1.3 10 ^3/uL Eosinophils # (Auto) 0.3 0-0.8 10 ^3/uL Basophils # (Auto) 0.1 0-0.2 10 ^3/uL Nucleated Red Blood Cells 0.1 % Sodium Level 140 136-145 mmol/L Potassium Level 3.7 3.5-5.1 mmol/L Chloride Level 104 98-107 mmol/L Carbon Dioxide Level 26 20-31 mmol/L Anion Gap 10 5-15 Blood Urea Nitrogen 18 9-23 mg/dL Creatinine 1.10 0.700-1.30 mg/dL Glomerular Filtration Rate Calc 79 >90 mL/min BUN/Creatinine Ratio 16.4 10.0-20.0 Serum Glucose 103 74-106 mg/dL Calcium Level 10.2 8.7-10.4 mg/dL Total Bilirubin 0.7 0.2-1.0 mg/dL Aspartate Amino Transferase (AST) 22 13-40 U/L Alanine Aminotransferase (ALT) 18 7-40 U/L Alkaline Phosphatase 97 46-116 U/L Total Protein 7.3 5.7-8.2 g/dL Albumin 4.8 3.2-4.8 g/dL Current Medications Medications (Trade) Dose Ordered Sig/Gerardo Route Start Time Stop Time Status Last Admin Hydromorphone HCl (Dilaudid Injection) 0.5 mg ONCE ONCE IV 06/09/25 19:00 06/09/25 19:01 DC 06/09/25 21:12 Ondansetron HCl (Zofran) 4 mg ONCE ONCE IV 06/09/25 21:00 06/09/25 21:01 DC 06/09/25 21:12 X-Ray, Labs, Meds, VS Comment All studies performed in the ED were evaluated by me personally. Serum studies were unremarkable for any systemic concerns. Urinalysis confirmed a rather large urinary tract infection. Patient will be admitted for nephrology evaluation to address his occluded nephrostomy. IV antibiotics has been ordered to address his urinary tract infection. Time of 1ST Reevaluation: 22:18 Reevaluation 1ST: Improved Consultation: PCP, Other (Nephrology/urology) Patient Education/Counseling: Diagnosis, Treatment, Need For Follow Up Family Education/Counseling: Diagnosis, Treatment, No Family Present SEPSIS Sepsis Screen Date sepsis recognized/suspect: Jun 09, 2025 Time Sepsis recognized/suspect: 1854 Recent Procedure: No On Antibiotic Therapy: No Respiratory Rate >20: No Heart Rate >90: Yes Temp<36 C (96.8 F) or >38.3 C: No SBP <90 or MAP <65 mmHG: No New Acute Mental Status Change: No Is the patient on CPAP, BIPAP,: No Physician Orders Saline Lock (06/09/25 20:43) Ceftriaxone Ivpb Rocephin (06/09/25 22:15) Vital Signs Date Time Temp Pulse Resp B/P (MAP) Pulse Ox O2 Delivery O2 Flow Rate FiO2 06/09/25 21:12 90 18 143/97 06/09/25 21:01 98.0 90 17 143/97 (112) 96 98.0 06/09/25 21:01 90 17 96 Room Air 06/09/25 19:37 98.0 90 18 138/91 (107) 94 98.0 06/09/25 19:37 90 18 94 Room Air 06/09/25 18:55 98.7 98 13 147/100 (116) 97 98.7 Laboratory Tests Test 06/09/25 19:06 White Blood Count 11.1 10^3/uL (4.4-10.8) #H Medications Medications Dose Ordered Sig/Gerardo Route Start Time Stop Time Status Last Admin Dose Admin Hydromorphone HCl 0.5 mg ONCE ONCE IV 06/09/25 19:00 06/09/25 19:01 DC 06/09/25 21:12 Ondansetron HCl 4 mg ONCE ONCE IV 06/09/25 21:00 06/09/25 21:01 DC 06/09/25 21:12 Departure 1 Departure Time of Disposition: 22:18 Impression: Primary Impression: Postoperative complication Additional Impression: UTI (urinary tract infection) Disposition: ADMITTED INPATIENT Condition: Stable Discharged With: Self Critical Care Note Critical Care Time?: No Stability Stability form required: No Heart Score Heart Score: Heart Score Response (Comments) Value History N/A 0 EKG N/A 0 Age N/A 0 Risk Factors N/A 0 Troponin N/A 0 Total 0 I personally scribed for ANTHONY GORMAN PAC ([email or web address]) on 06/09/25 at 22:09. Electronically submitted by Christopher Shelby [email or web address]). ANTHONY GORMAN PAC Jun 09, 2025 22:09
[2025-06-09] MEDS ORDERED: ONDANSETRON HCL 4 MG/2 ML VIAL IV PRN (23:45)
[2025-06-09 23:57] LABS: Triglycerides 122 mg/dL (< 150)
[2025-06-09 23:59] LABS: Cholesterol 138 mg/dL (< 200); HDL Cholesterol 45 mg/dL (40-59)
[2025-06-10] VITALS (7 sets, daily range): BP systolic 137–156; BP diastolic 96–112; PULSE 77–98; RESP 18–19; TEMP 97.3–98.7; O2SAT 95–97
--- NOTE | 2025-06-10 00:52 | DVHHPRES ---
History of Present Illness Resident Creating Document: YOU CASTRO History of Present Illness This is a 54-year-old male with past medical history of hypertension, CVA in 2010 with right-sided residual deficits since then, multiple TIAs and dyslipidemia. The patient presented to the ED with a acute right flank pain. The patient reports that was discharged two days ago from our facility after right-sided nephrostomy tube placement due to a 10 mm obstructing kidney stone. The patient states that after discharge nephrostomy tube was draining clear urine and no significant pain was present at that time. The patient states that since this morning before coming to the ED, he noticed that the right nephrostomy tube was not draining any urine at all and the minimum amount of urine is tinged blood colored urine. Patient believes that nephrostomy tube is clogged. The patient reports exacerbation of the right flank pain with a associated nausea but no vomiting. Patient denies fever/chills, chest pain, shortness of breath or any other associated symptoms. Upon my examination, the patient has right-sided costovertebral angle tenderness to percussion, nephrostomy tube is draining minimal bloody tinged urine in the last 24 hours. The patient was instructed upon last discharge, that if pain got worse, developed fever/chills or nephrostomy tube got clogged to come back to the ED reason why the patient presented this time. We will order bilateral kidney ultrasound, consult Urology and admit the patient for further assessment and management. 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 Patient had also multiple TIAs Past Surgical History: Other (Right-sided nephrostomy tube placement two days ago) Family History: None Smoke: No ALCOHOL: none Drugs: None Lives: with Family Domestic Violence: Neg Review of Systems Constitutional: No: Fever, Chills, Sweats, Weakness, Malaise, Other Eyes: No: Pain, Vision change, Conjunctivae inflammation, Eyelid inflammation, Other, Redness ENT: No: Ear pain, Ear discharge, Nose pain, Nose discharge, Nose congestion, Mouth pain, Mouth swelling, Throat pain, Throat swelling, Other Respiratory: No: Cough, Dry, Shortness of breath, SOB with excertion, Wheezing, Hemoptysis, Pleuritic Pain, Sputum, Wheezing, Other Cardiovascular: No: Chest Pain, Palpitations, Orthopnea, Paroxysmal Noc. Dyspnea, Edema, Lt Headedness, Other Gastrointestinal: Nausea, Abdominal Pain, Other (Right flank pain); No: Vomiting, Diarrhea, Constipation, Melena, Hematochezia Genitourinary: No Dysuria, No Frequency, No Incontinence, No Hematuria, No Retention, No Other Musculoskeletal: No: other, neck pain, shoulder pain, arm pain, back pain, hand pain, leg pain, foot pain Skin: No: Rash, Lesions, Jaundice, Bruising, Other Neurological: No: Weakness, Numbness, Incoordination, Change in speech, Confusion, Seizures, Other Allergies: Coded Allergies: Banana (Verified Allergy, Unknown, 06/07/25) Medications Current Medications Medications Dose Ordered Sig/Gerardo Route Start Time Stop Time Status Last Admin Dose Admin Acetaminophen 650 mg Q6HP PRN PO 06/09/25 23:45 Acetaminophen/ Hydrocodone Bitart 1 tab Q4HP PRN PO 06/09/25 23:45 Ondansetron HCl 4 mg Q4HP PRN IV 06/09/25 23:45 Tamsulosin HCl 0.4 mg DAILY PO 06/10/25 22:00 Carvedilol 12.5 mg BID PO 06/10/25 10:00 Amlodipine Besylate 10 mg DAILY PO 06/10/25 20:00 Lisinopril 40 mg DAILY PO 06/10/25 10:00 Atorvastatin Calcium 20 mg DAILY PO 06/10/25 10:00 Baclofen 10 mg DAILY PO 06/10/25 10:00 Ceftriaxone Sodium 50 ml @ 100 mls/hr DAILY@2200 IV 06/10/25 22:00 Exam Vital Signs Vital Signs Date Time Temp Pulse Resp B/P (MAP) Pulse Ox O2 Delivery O2 Flow Rate FiO2 06/09/25 23:22 97.9 86 17 151/75 (100) 97.9 06/09/25 21:01 96 06/09/25 21:01 Room Air General Appearance: Alert, Oriented X3, Cooperative, mild distress HEENT: Atraumatic, PERRLA, EOMI, Mucous membr. moist/pink Respiratory: Clear to auscultation, Normal air movement Cardiovascular: Regular rate, Normal S1, Normal S2, No murmurs Abdominal: Normal bowel sounds, No hepatospenomegaly, No masses, Other (Positive right costovertebral angle tenderness. Right nephrostomy tube draining minimal bloody tinged urine in the last 24 hours.) Extremities: No clubbing, No cyanosis, No edema, Normal pulses Skin: No rashes, No breakdown, No significant lesion Neuro: Normal gait, Normal speech, Strength at 5/5 X4 ext, Normal tone, Sensation intact, Cranial nerves 3-12 NL, Reflexes 2+ Psych/Mental Status: Mental status NL, Mood NL Labs/Xrays Labs Test 06/09/25 21:20 06/09/25 19:06 Range/Units Urine Color Yellow Yellow Urine Clarity Turbid H Clear Urine pH 6.0 5.0-9.0 Urine Specific [place] 1.027 1.001-1.035 Urine Protein 1+ H Negative Urine Ketones Negative Negative Urine Blood 3+ H Negative /uL Urine Nitrite Negative Negative Urine Bilirubin Negative Negative Urine Urobilinogen Normal Negative mg/dL Urine Leukocyte Esterase 1+ Negative /uL Urine RBC 882 0 - 3 /hpf Urine Microscopic WBC 33 H 0-3 /HPF Urine Squamous Epithelial Cells Few <5 /hpf Urine Calcium Oxalate Crystals Few None Seen Urine Bacteria None seen None Seen /hpf Urine Mucus Few None Seen Urine Yeast (Budding) Occasional None Seen /hpf Urine Glucose Normal Normal mg/dL White Blood Count 11.1 #H 4.4-10.8 10^3/uL Red Blood Count 5.42 4.5-5.90 10^6/uL Hemoglobin 15.6 13.5-17.5 g/dL Hematocrit 44.2 41.0-53.0 % Mean Corpuscular Volume 81.6 80.0-100.0 fL Mean Corpuscular Hemoglobin 28.7 28.0-32.0 pg Mean Corpuscular Hemoglobin Concent 35.2 32.0-36.0 g/dL Red Cell Distribution Width 13.9 11.8-14.3 % Platelet Count 314 140-450 10^3/uL Mean Platelet Volume 7.8 6.9-10.8 fL Neutrophils (%) (Auto) 63.3 37.0-80.0 % Lymphocytes (%) (Auto) 24.0 10.0-50.0 % Monocytes (%) (Auto) 9.0 0.0-12.0 % Eosinophils (%) (Auto) 3.0 0.0-7.0 % Basophils (%) (Auto) 0.7 0.0-2.0 % Neutrophils # (Auto) 7.0 1.6-8.6 10 ^3/uL Lymphocytes # (Auto) 2.7 0.4-5.4 10 ^3/uL Monocytes # (Auto) 1.0 0-1.3 10 ^3/uL Eosinophils # (Auto) 0.3 0-0.8 10 ^3/uL Basophils # (Auto) 0.1 0-0.2 10 ^3/uL Nucleated Red Blood Cells 0.1 % Sodium Level 140 136-145 mmol/L Potassium Level 3.7 3.5-5.1 mmol/L Chloride Level 104 98-107 mmol/L Carbon Dioxide Level 26 20-31 mmol/L Anion Gap 10 5-15 Blood Urea Nitrogen 18 9-23 mg/dL Creatinine 1.10 0.700-1.30 mg/dL Glomerular Filtration Rate Calc 79 >90 mL/min BUN/Creatinine Ratio 16.4 10.0-20.0 Serum Glucose 103 74-106 mg/dL Hemoglobin A1c 5.4 <5.7 % A1C Calcium Level 10.2 8.7-10.4 mg/dL Total Bilirubin 0.7 0.2-1.0 mg/dL Aspartate Amino Transferase (AST) 22 13-40 U/L Alanine Aminotransferase (ALT) 18 7-40 U/L Alkaline Phosphatase 97 46-116 U/L Total Protein 7.3 5.7-8.2 g/dL Albumin 4.8 3.2-4.8 g/dL Triglycerides Level 122 < 150 mg/dL Cholesterol Level 138 < 200 mg/dL LDL Cholesterol 79 < 100 mg/dL HDL Cholesterol 45 40-59 mg/dL SEPSIS Sepsis Screen Date sepsis recognized/suspect: Jun 09, 2025 Time Sepsis recognized/suspect: 1854 Recent Procedure: No On Antibiotic Therapy: No Respiratory Rate >20: No Heart Rate >90: Yes Temp<36 C (96.8 F) or >38.3 C: No SBP <90 or MAP <65 mmHG: No New Acute Mental Status Change: No Is the patient on CPAP, BIPAP,: No Physician Orders Saline Lock (06/09/25 20:43) Admit (06/09/25 23:31) Code Status (06/09/25 23:31) Vital Signs .PER UNIT PROTOCOL (06/09/25 23:31) Review Orders With Adm. (06/09/25 23:31) Encourage Activity As Tolerate (06/09/25 23:31) Regular Diet (06/10/25 Breakfast) Acetaminophen Tablet (Tylenol Tablet) (06/09/25 23:45) Notify Md Of Changes From Base (06/09/25 23:31) Advance Directive (06/09/25 23:31) Urinalysis (06/09/25:) Complete Blood Count (06/10/25 04:00) Urine Bacterial Culture (06/09/25 23:31) Patient Condition (06/09/25 23:31) Allergies (06/09/25 23:) Hydrocodone-Acet 5/325mg Tab (Amonate 32 (06/09/25 23:45) Ondansetron Hcl (Zofran) (06/09/25 23:45) Drug Screen (06/09/25 23:31) Kidney (06/09/25 23:31) Tamsulosin Hydrochloride (Flomax) (06/10/25 22:00) Carvedilol Tablet (Coreg Tablet) (06/10/25 10:00) Amlodipine Tablet (Norvasc Tablet) (06/10/25 20:00) Lisinopril Tablet (Zestril Tablet) (06/10/25 10:00) Atorvastatin (Lipitor) (06/10/25 10:00) Baclofen Tablet (Liorisal Tablet) (06/10/25 10:00) Ceftriaxone 1gm/50ml D5w (Rocephin) (06/10/25 22:00) Vital Signs Date Time Temp Pulse Resp B/P (MAP) Pulse Ox O2 Delivery O2 Flow Rate FiO2 06/09/25 23:22 97.9 86 17 151/75 (100) 97.9 06/09/25 21:12 90 18 143/97 06/09/25 21:01 98.0 90 17 143/97 (112) 96 98.0 06/09/25 21:01 90 17 96 Room Air 06/09/25 19:37 98.0 90 18 138/91 (107) 94 98.0 06/09/25 19:37 90 18 94 Room Air 06/09/25 18:55 98.7 98 13 147/100 (116) 97 98.7 Laboratory Tests Test 06/09/25 19:06 White Blood Count 11.1 10^3/uL (4.4-10.8) #H Medications Medications Dose Ordered Sig/Gerardo Route Start Time Stop Time Status Last Admin Dose Admin Hydromorphone HCl 0.5 mg ONCE ONCE IV 06/09/25 19:00 06/09/25 19:01 DC 06/09/25 21:12 0.5 MG Ondansetron HCl 4 mg ONCE ONCE IV 06/09/25 21:00 06/09/25 21:01 DC 06/09/25 21:12 4 MG Assessment/Plan Assessment/Plan Assessment/plan Right-sided flank pain likely due to right-sided hydronephrosis Possible right-sided nephrostomy tube misplacement/obstruction Possible right-sided pyelonephritis Complicated UTI -previous CT scan of the abdomen showed Moderate right hydronephrosis secondary to a partially obstructing proximal ureteral calculus measuring 10 mm. -ordered bilateral kidney ultrasound -start IV ceftriaxone -consulted Urology -avoid aggressive IV fluids -pain medications -tamsulosin 0.4 mg daily Primary hypertension -restart carvedilol 12.5 mg b.i.d. -restart amlodipine 10 mg daily -restart lisinopril 40 mg daily -monitor blood pressure closely Dyslipidemia -start atorvastatin 20 mg daily History of CVA in 2010 with right-sided residual deficits History of multiple TIAs -Hold aspirin until patient is evaluated for nephrostomy tube/ poss urologic intervention -Resume aspirin afterwards -Hold dvt prophylaxis Goals of care discussed with the patient at bedside for> 35min, full code Plan discussed with Dr. Long Plan discussed with: Patient My Orders Orders - YOU CASTRO Procedure Category Date Status Time Admit ADMIT 06/09/25 Transmitted 23:31 Code Status CODE 06/09/25 Transmitted 23:31 Vital Signs ELDA 06/09/25 In Process 23:31 Review Orders With ELDA 06/09/25 In Process Adm 23:31 Encourage Activity As ELDA 06/09/25 In Process Tolerate 23:31 Regular Diet DIET 06/10/25 Transmitted Breakfast Acetaminophen Tablet PHA 06/09/25 In Process (Tylenol Tablet) 23:45 Notify Of Changes ELDA 06/09/25 In Process From Base 23:31 Advance Directive ELDA 06/09/25 In Process 23:31 Urinalysis LAB 06/09/25 Logged 23:31 Complete Blood Count LAB 06/10/25 Logged 04:00 Urine Bacterial JAMAL 06/09/25 Logged Culture 23:31 Patient Condition ORDERS 06/09/25 Transmitted 23:31 Allergies ELDA 06/09/25 In Process 23:31 Hydrocodone-Acet PHA 06/09/25 In Process 5/325mg Tab (Amonate 23:45 Ondansetron Hcl PHA 06/09/25 In Process (Zofran) 23:45 Drug Screen LAB 06/09/25 Logged 23:31 Kidney US 06/09/25 Taken 23:31 Tamsulosin PHA 06/10/25 In Process Hydrochloride (Flomax) 22:00 Carvedilol Tablet PHA 06/10/25 In Process (Coreg Tablet) 10:00 Amlodipine Tablet PHA 06/10/25 In Process (Norvasc Tablet) 20:00 Lisinopril Tablet PHA 06/10/25 In Process (Zestril Tablet) 10:00 Atorvastatin (Lipitor) PHA 06/10/25 In Process 10:00 Baclofen Tablet PHA 06/10/25 In Process (Liorisal Tablet) 10:00 Ceftriaxone 1gm/50ml PHA 06/10/25 In Process D5w (Rocephin) 22:00 Date of Service: Jun 10, 2025 Billing Provider: MEGAN LONG MD Common Visit Codes: [id number] INP/OBS CARE (HIGH) Secondary Visit Codes: [id number] CARE PLAN 30 MINUTES YOU CASTRO RESIDENT Jun 10, 2025 00:52
--- NOTE | 2025-06-10 01:14 | DVH ---
INDICATION: RIGHT SIDED NEPHROSTOMY TUBE AND NEPHROLITHIASIS TECHNIQUE: Multiple real-time sonographic images of the kidneys and bladder were obtained. COMPARISON: None FINDINGS: RIGHT kidney measures 11.8 cm in length. Nephrostomy noted. Moderate hydronephrosis. LEFT kidney measures 13.2 cm in length. Simple appearing cyst measuring 1.5 x 1.4 x 1.3 cm within the superior pole. No hydronephrosis. No large intraluminal masses are seen in the bladder. Bladder is decompressed. Post void residual not assessed. IMPRESSION: 1. Moderate right hydronephrosis status post nephrostomy. 2. Simple appearing left superior pole renal cyst.
[2025-06-10] MEDS: CARVEDILOL 12.5 MG TAB PO ONE (01:19)
[2025-06-10] MEDS: TAMSULOSIN HYDROCHLORIDE 0.4 MG CAP PO ONE (01:20)
[2025-06-10] MEDS: cefTRIAXone 1GM/50ML D5W 50 ML IV ONE (02:34)
[2025-06-10] MEDS: HYDROcodone-ACET 5/325MG TAB PO PRN (03:00)
[2025-06-10] MEDS ORDERED: MIN25T PO (03:16)
[2025-06-10 07:16] LABS: Hematocrit 40.4 % (41.0-53.0); Hemoglobin 14.5 g/dL (13.5-17.5); Mean Corpuscular Hemoglobin 29.0 pg (28.0-32.0); Mean Corpuscular Volume 80.8 fL (80.0-100.0); Nucleated Red Blood Cells % 0.2 %
[2025-06-10 08:32] LABS: Chloride 105 mmol/L (98-107); Sodium 141 mmol/L (136-145)
[2025-06-10 08:33] LABS: Anion Gap 8 (5-15); Calcium 9.3 mg/dL (8.7-10.4); Carbon Dioxide 28 mmol/L (20-31)
[2025-06-10 08:38] LABS: BUN/Creatinine Ratio 16.8 (10.0-20.0); Blood Urea Nitrogen 17 mg/dL (9-23)
[2025-06-10 08:41] LABS: Glucose 123 mg/dL (74-106); Potassium 3.3 mmol/L (3.5-5.1)
[2025-06-10] MEDS: BACLOFEN 10 MG TAB PO SCH (09:42)
[2025-06-10] MEDS: CARVEDILOL 12.5 MG TAB PO SCH (09:44)
[2025-06-10] MEDS: LISINOPRIL 20 MG TAB PO SCH (09:45)
[2025-06-10] MEDS: ATORVASTATIN 20 MG TAB PO SCH (09:48)
--- NOTE | 2025-06-10 09:48 | DVH ---
CT CT AB PEL WO CON-NO ORAL OR IV INDICATION: nephrolithiasis EXAM DATE: 06/10/2025 09:15 AM COMPARISON: CT CT AB PEL WO CON-NO ORAL OR IV on DOS: 06/07/25 RADIATION DOSE: CTDIvol: 19 mGy, DLP: 1119 mGy*cm PROCEDURE: Helical CT images were obtained of the abdomen and pelvis without IV contrast Sagittal and coronal reconstructions are provided. ORAL CONTRAST: None. ADDITIONAL IMAGES / REFORMATS: None All C T scans at this medical facility are performed using dose modulation techniques as appropriate to a p erformed exam including the following: Automated exposure control was utilized; adjustment of the MA and/or KV according to patient size; and use of iterative reconstruction technique. FINDINGS: LUNG BASE: Normal. LIVER: Normal. GALLBLADDER AND BILIARY TREE: No calcified gallstones. Normal caliber wall. No intra- or extrahepatic biliary ductal dilation. PANCREAS: Normal. SPLEEN: Normal. BOWEL: There is moderate colonic diverticulosis. The appendix is not well visualized. ADRENALS: Normal. KIDNEYS AND URETER: Similar 8 mm proximal right ureteral kidney stone with mild right hydronephrosis . Right nephrostomy tube is retracted out of kidney collecting system. BLADDER: Normal. REPRODUCTIVE ORGANS: Normal. LYMPH NODES:No lymphadenopathy. PERITONEUM: No ascites or free air. No other fluid collection. VESSELS: Scattered atherosclerotic calcifications are noted. RETROPERITONEUM: Normal. ABDOMINAL WALL: Right inguinal hernia contains a portion of the bladder. Small fat containing umbilic al hernia. BONES: Scattered osseous degenerative changes are noted. IMPRESSION: Similar 8 mm proximal right ureteral kidney stone with mild right hydronephrosis. Right nephrostomy tube is retracted out of kidney collecting system.
--- NOTE | 2025-06-10 10:57 | DVHINCON2 ---
Date of service: Jun 10, 2025 Referring Physician Hospitalist Reason for Consultation displaced PCN History of Present Illness History Source: Patient, RN Notes, MD Notes, Old Records Exam Limitations: No limitations HPI 54 yo male with obstructing right proximal stone s/p PCN placement 4 days ago at this facility. CT shows the PCN is retracted out of position. there has been no output. He is having right flank pain . no fevers. Home Meds Active Scripts Ondansetron Odt 4MG Tab (ZOFRAN PO) 4 Mg Tb, 4 MG PO TIDP PRN for 5 Days, #15 TAB 0 Refills ODT TAB-DISSOLVE IN MOUTH, THEN SWALLOW Prov:MARK CELESTIN MD 06/08/25 Amoxicillin & Pot Clavulanate (AUGMENTIN TABLET) 875 Mg Tb, 875 MG PO BID for 4 Days, #8 TAB 0 Refills Prov:MARK CELESTIN MD 06/08/25 Reported Medications Minoxidil (Loniten) 2.5 Mg Tb, 2.5 MG PO BID, TAB 06/10/25 Cholecalciferol (VITAMIN D3) 2,000 Unit Tab, 5000 UNIT PO DAILY, #30 TAB 5 Refills 06/07/25 Bupropion Hcl (Bupropion Hcl) 100 Mg Tab, 150 MG PO BID for 30 Days, MG 09/30/20 Carvedilol (Carvedilol) 12.5 Mg Tab, 12.5 MG PO Q12HR for 30 Days, MG 09/30/20 Lisinopril (Lisinopril) 40 Mg Tab, 40 MG PO BID for 30 Days, MG 09/30/20 Clonidine Hydrochloride (Clonidine Hcl) 0.1 Mg Tab, 0.1 MG PO TID for 30 Days, MG 09/30/20 Simvastatin (Simvastatin) 20 Mg Tab, 20 MG PO DAILY for 30 Days 09/30/20 Amlodipine Besylate (Amlodipine Besylate) 5 Mg Tab, 10 MG PO DAILY for 30 Days, MG 09/30/20 Baclofen (Baclofen) 10 Mg Tab, 20 MG PO TID PRN for PAIN SCALE 1 THRU 6 for 30 Days, MG 09/30/20 Potassium Chloride (POTASSIUM CHLORIDE CR) 10 Meq Tb, 20 MEQ PO DAILY, TAB 09/30/20 Discontinued Reported Medications Quetiapine Fumerate (QUETIAPINE FUMARATE) 25 Mg Tab, 1 TAB PO QPM 12/16/23 Past Medical History Patient Family History: Cerebrovascular accident (CVA) G8 FATHER Diabetes mellitus G8 FATHER Hypertension G8 FATHER Malignant neoplasm of breast GRANDMOM Thyroid disease G8 SISTER Review of Systems Genitourinary: Hematuria, Pain H&P Exam Vital Signs Vital Signs Date Time Temp Pulse Resp B/P (MAP) Pulse Ox O2 Delivery O2 Flow Rate FiO2 06/10/25 09:45 156/96 06/10/25 09:44 79 06/10/25 08:39 97.3 18 95 97.3 06/10/25 02:18 Room Air* 0 21 General Appeara: Well developed, Well nourished, Normal Appearance, Obese Neuro/Mental St: Alert, Oriented Appearance: Appropriate appearance, Appropriate insight Eye contact/ Speech: Cooperative, Good eye contact, Normal speech Skin Exam: Normal inspection, Normal color, Warm/dry Labs/Xrays [place] [address] Ph: [phone] DIAGNOSTIC IMAGING Diagnostic Imaging Report : [id number] Signed PATIENT: MARIANNA HUTTON ACCT: [id number] UNIT: [id number] : 1970 LOC: OVERFLOW ROOM / BED: [address] [place] [address] AGE / SEX: 54 / M ADM STATUS: ADM IN SERVICE 233 ORDERING PHYSICIAN: YOU CASTRO RESIDENT PROCEDURE(s): KIDUS - KIDNEY REASON: RIGHT SIDED NEPHROSTOMY TUBE AND NEPHROLITHIASIS ORDER NUMBER(s): [id number], ACCESSION NUMBER(s): [id number] INDICATION: RIGHT SIDED NEPHROSTOMY TUBE AND NEPHROLITHIASIS TECHNIQUE: Multiple real-time sonographic images of the kidneys and bladder were obtained. COMPARISON: None FINDINGS: RIGHT kidney measures 11.8 cm in length. Nephrostomy noted. Moderate hydronephrosis. LEFT kidney measures 13.2 cm in length. Simple appearing cyst measuring 1.5 x 1.4 x 1.3 cm within the superior pole. No hydronephrosis. No large intraluminal masses are seen in the bladder. Bladder is decompressed. Post void residual not assessed. IMPRESSION: 1. Moderate right hydronephrosis status post nephrostomy. 2. Simple appearing left superior pole renal cyst. ATED BY: OZZIE DELVALLE MD DICTATED DATE/TIME: 06/10/25111 SIGNED BY: OZZIE DELVALLE MD SIGNED DATE/TIME: 06/10/25111 CC: [place] [address] Ph: [phone] DIAGNOSTIC IMAGING Diagnostic Imaging Report : [id number] Signed PATIENT: MARIANNA HUTTON ACCT: [id number] UNIT: [id number] : 1970 LOC: CENTRAL ROOM / BED: 0218 / B AGE / SEX: 54 / M ADM STATUS: ADM IN SERVICE 4 ORDERING PHYSICIAN: CORINA HERRMANN RESIDENT PROCEDURE(s): ABPL - CT AB PEL WO CON-NO ORAL OR IV REASON: nephrolithiasis ORDER NUMBER(s): [id number], ACCESSION NUMBER(s): [id number] CT CT AB PEL WO CON-NO ORAL OR IV INDICATION: nephrolithiasis EXAM DATE: 06/10/2025 09:15 AM COMPARISON: CT CT AB PEL WO CON-NO ORAL OR IV on DOS: 06/07/25 RADIATION DOSE: CTDIvol: 19 mGy, DLP: 1119 mGy*cm PROCEDURE: Helical CT images were obtained of the abdomen and pelvis without IV contrast Sagittal and coronal reconstructions are provided. ORAL CONTRAST: None. ADDITIONAL IMAGES / REFORMATS: None All CT scans at this medical facility are performed using dose modulation techniques as appropriate to a performed exam including the following: Automated exposure control was utilized; adjustment of the MA and/or KV according to patient size; and use of iterative reconstruction technique. FINDINGS: LUNG BASE: Normal. LIVER: Normal. GALLBLADDER AND BILIARY TREE: No calcified gallstones. Normal caliber wall. No intra- or extrahepatic biliary ductal dilation. PANCREAS: Normal. SPLEEN: Normal. BOWEL: There is moderate colonic diverticulosis. The appendix is not well visualized. ADRENALS: Normal. KIDNEYS AND URETER: Similar 8 mm proximal right ureteral kidney stone with mild right hydronephrosis. Right nephrostomy tube is retracted out of kidney collecting system. BLADDER: Normal. REPRODUCTIVE ORGANS: Normal. LYMPH NODES:No lymphadenopathy. PERITONEUM: No ascites or free air. No other fluid collection. VESSELS: Scattered atherosclerotic calcifications are noted. RETROPERITONEUM: Normal. ABDOMINAL WALL: Right inguinal hernia contains a portion of the bladder. Small fat containing umbilical hernia. BONES: Scattered osseous degenerative changes are noted. IMPRESSION: Similar 8 mm proximal right ureteral kidney stone with mild right hydronephrosis. Right nephrostomy tube is retracted out of kidney collecting system. ATED BY: YONATHAN HORTON MD DICTATED DATE/TIME: 06/10/25945 SIGNED BY: YONATHAN HORTON MD SIGNED DATE/TIME: 06/10/25945 CC: Labs Test 06/10/25 06:02 06/09/25 21:20 06/09/25 19:06 Range/Units White Blood Count 9.0 4.4-10.8 10^3/uL Red Blood Count 4.99 4.5-5.90 10^6/uL Hemoglobin 14.5 13.5-17.5 g/dL Hematocrit 40.4 L 41.0-53.0 % Mean Corpuscular Volume 80.8 80.0-100.0 fL Mean Corpuscular Hemoglobin 29.0 28.0-32.0 pg Mean Corpuscular Hemoglobin Concent 35.9 32.0-36.0 g/dL Red Cell Distribution Width 13.8 11.8-14.3 % Platelet Count 279 140-450 10^3/uL Mean Platelet Volume 8.4 6.9-10.8 fL Neutrophils (%) (Auto) 61.2 37.0-80.0 % Lymphocytes (%) (Auto) 24.1 10.0-50.0 % Monocytes (%) (Auto) 10.9 0.0-12.0 % Eosinophils (%) (Auto) 3.2 0.0-7.0 % Basophils (%) (Auto) 0.6 0.0-2.0 % Neutrophils # (Auto) 5.5 1.6-8.6 10 ^3/uL Lymphocytes # (Auto) 2.2 0.4-5.4 10 ^3/uL Monocytes # (Auto) 1.0 0-1.3 10 ^3/uL Eosinophils # (Auto) 0.3 0-0.8 10 ^3/uL Basophils # (Auto) 0.1 0-0.2 10 ^3/uL Nucleated Red Blood Cells 0.2 % Sodium Level 141 136-145 mmol/L Potassium Level 3.3 L 3.5-5.1 mmol/L Chloride Level 105 98-107 mmol/L Carbon Dioxide Level 28 20-31 mmol/L Anion Gap 8 5-15 Blood Urea Nitrogen 17 9-23 mg/dL Creatinine 1.01 0.700-1.30 mg/dL Glomerular Filtration Rate Calc 88 >90 mL/min BUN/Creatinine Ratio 16.8 10.0-20.0 Serum Glucose 123 H 74-106 mg/dL Calcium Level 9.3 8.7-10.4 mg/dL Urine Color Yellow Yellow Urine Clarity Turbid H Clear Urine pH 6.0 5.0-9.0 Urine Specific [place] 1.027 1.001-1.035 Urine Protein 1+ H Negative Urine Ketones Negative Negative Urine Blood 3+ H Negative /uL Urine Nitrite Negative Negative Urine Bilirubin Negative Negative Urine Urobilinogen Normal Negative mg/dL Urine Leukocyte Esterase 1+ Negative /uL Urine RBC 882 0 - 3 /hpf Urine Microscopic WBC 33 H 0-3 /HPF Urine Squamous Epithelial Cells Few <5 /hpf Urine Calcium Oxalate Crystals Few None Seen Urine Bacteria None seen None Seen /hpf Urine Mucus Few None Seen Urine Yeast (Budding) Occasional None Seen /hpf Urine Glucose Normal Normal mg/dL Hemoglobin A1c 5.4 <5.7 % A1C Total Bilirubin 0.7 0.2-1.0 mg/dL Aspartate Amino Transferase (AST) 22 13-40 U/L Alanine Aminotransferase (ALT) 18 7-40 U/L Alkaline Phosphatase 97 46-116 U/L Total Protein 7.3 5.7-8.2 g/dL Albumin 4.8 3.2-4.8 g/dL Triglycerides Level 122 < 150 mg/dL Cholesterol Level 138 < 200 mg/dL LDL Cholesterol 79 < 100 mg/dL HDL Cholesterol 45 40-59 mg/dL Assessment/Plan Problem List: (1) Nephrostomy tube displaced (2) Hydronephrosis (3) Nephrolithiasis Plan IR consulted for exchange of PCN lithotripsy TBA Plan discussed with: Patient, Other MARIAN POLLOCK NP Jun 10, 2025 10:57
[2025-06-10 11:26] LABS: INR 1.04 (0.9-1.15); Partial Thromboplastin Time 29.5 SEC (24.5-34.5); Prothrombin Time 11.0 sec (9.3-11.8)
[2025-06-10] MEDS ORDERED: POTASSIUM EFFERVESENT TAB 25 MEQ GT ONE (11:45)
[2025-06-10] MEDS: POTASSIUM EFFERVESENT TAB 25 MEQ PO ONE (12:02)
--- NOTE | 2025-06-10 16:38 | DVHPNRES ---
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 He presented to the ED with acute right flank pain. He was discharged two days ago from our facility after right-sided nephrostomy tube placement due to a 10 mm obstructing kidney stone. The patient states that after discharge nephrostomy tube was draining clear urine and no significant pain was present at that time. The patient states that since this morning before coming to the ED, he noticed that the right nephrostomy tube was not draining any urine at all and the minimum amount of urine is tinged blood colored urine. This was accompanied by pain, which was 10 on 10, sharp. No aggravating or relieving factors. He reports exacerbation of the right flank pain with a associated nausea but no vomiting. He denies fever/chills, chest pain, shortness of breath or any other associated symptoms. The nephrostomy tube is draining minimal bloody tinged urine in the last 24 hours. His labs are significant for urine analysis with turbid urine, blood 3+. A bilateral kidney ultrasound shows right hydronephrosis, simple renal cyst. A CT abdomen shows 8 mm right ureteral kidney stone with right hydronephrosis; Right nephrostomy tube retracted out of kidney collecting system. Past history: Stroke- hemorrhagic, HTN, inguinal hernia right side, umbilical hernia, aortic aneurysm, arthritis of spine, depression, anxiety, TIA. Past surgical history: Appendectomy at the age of 12. Personal history: Nonsmoker, occasional alcohol use, no recreational drugs. He reports using cannabis oil. ROS: Constitutional: Denies weight loss, fever and chills. HEENT: Vision change since stroke in 2010, no new change. Respiratory: Denies shortness of breath and cough Cardiovascular: Denies chest discomfort or palpitations GI: Right flank pain. No associated nausea, vomiting, diarrhea. : Denies dysuria and urinary frequency. Musculoskeletal: Denies myalgias and joint pain Skin: Denies rash and pruritus. Neurological: Reduced motor strength in right side of body. Patient was examined at bedside today. He continued to complain of flank pain. His nephrostomy tube was draining bloody fluid. Objective vital signs Vital Sign Date Time Temp Pulse Resp B/P (MAP) Pulse Ox O2 Delivery O2 Flow Rate FiO2 06/10/25 13:00 98.5 94 19 138/102 (114) 97 98.5 06/10/25 08:00 Room Air* 0 21 Total Intake and Output 06/09/25 06/09/25 06/10/25 15:00 23:00 07:00 Intake Total 225 ml Balance 225 ml medications Current Medications Medications Dose Ordered Sig/Gerardo Route Start Time Stop Time Status Last Admin Dose Admin Acetaminophen 650 mg Q6HP PRN PO 06/09/25 23:45 Acetaminophen/ Hydrocodone Bitart 1 tab Q4HP PRN PO 06/09/25 23:45 06/10/25 12:03 1 TAB Ondansetron HCl 4 mg Q4HP PRN IV 06/09/25 23:45 Tamsulosin HCl 0.4 mg DAILY PO 06/10/25 22:00 Carvedilol 12.5 mg BID PO 06/10/25 10:00 06/10/25 09:44 12.5 MG Amlodipine Besylate 10 mg DAILY PO 06/10/25 20:00 Lisinopril 40 mg DAILY PO 06/10/25 10:00 06/10/25 09:45 40 MG Atorvastatin Calcium 20 mg DAILY PO 06/10/25 10:00 Baclofen 10 mg DAILY PO 06/10/25 10:00 06/10/25 09:42 10 MG Ceftriaxone Sodium 50 ml @ 100 mls/hr DAILY@2200 IV 06/10/25 22:00 Morphine Sulfate 1 mg Q4HP PRN IV 06/10/25 13:45 Examination General: Patient alert and oriented in person, place and time. Patient following commands. HEENT: Normocephalic, atraumatic, moist mucous membranes Respiratory/pulmonary: Reduced breath sounds in left lower lung, no associated crackles or wheezes. Cardiovascular: Normal heart sounds S1 and S2 with no associated murmurs Abdomen: Mild tenderness in the right flank, no palpable masses. Nephrostomy tube draining bloody fluid. Dressing is dry. Umbilical hernia, reducible. Extremities: Motor strength 1/5 in right leg, 3/5 in right arm. Left-sided motor strength normal. Peripheral Pulses: 3+ Radial (R). 3+ Radial (L). 3+ Dorsalis pedis (R). 3+ Dorsalis pedis(L) Skin: No rashes or pruritus, there is no sacral edema present at this time. laboratory and microbiology Laboratory Tests 06/10/25 06:02 Test 06/10/25 06:02 Range/Units Serum Glucose 123 H 74-106 mg/dL Microbiology Date/Time Source Procedure Growth Status 06/10/25 03:40 Nose MRSA Screen - Final Complete Labs and/or images reviewed: Labs reviewed by me, Image(s) reviewed by me Problem List/Assessment/Plan Problem List/Assessment/Plan #Right-sided flank pain likely due displaced nephrostomy tube #Hydronephrosis #Nephrolithiasis #Possible right-sided pyelonephritis #Complicated UTI, possible -Urine analysis shows turbid urine, blood 3+, WBC 33 -Previous CT scan of the abdomen showed Moderate right hydronephrosis secondary to a partially obstructing proximal ureteral calculus measuring 10 mm. -CT scan today shows tube retraction out of collecting system. -Urology consulted. IR consulted for exchange of percutaneous nephrostomy tube, possible on Wednesday. Advised lithotripsy -Bilateral kidney ultrasound shows hydronephrosis -Started IV ceftriaxone -Avoiding aggressive IV fluids -Tamsulosin 0.4 mg daily #Primary hypertension -Continue carvedilol 12.5 mg b.i.d. -Continue amlodipine 10 mg daily -Continue lisinopril 40 mg daily -Monitor blood pressure closely #Dyslipidemia -Continue atorvastatin 20 mg daily #History of CVA in 2010 with right-sided residual deficits #History of multiple TIAs -Hold aspirin until patient is evaluated for nephrostomy tube/ poss urologic intervention -Resume aspirin afterwards -Hold dvt prophylaxis -Pneumatic compression device started #Hypokalemia -Potassium supplementation; We will continue monitoring and managing Goals of care discussed with the patient at bedside for 20min; Full code Plan discussed with Dr. Hargrove Plan discussed with: Patient, Spouse, Other (Nurse) My Orders My Orders Orders - ORESTES JONES RESIDENT Procedure Category Date Status Time Complete Blood Count LAB 06/11/25 Verified 04:00 Comprehensive LAB 06/11/25 Verified Metabolic Panel 04:00 Addendum Addendum Addendum I was physically present for the murphy portions of the service provided to patient by THE RESIDENT. I have reviewed the documentation, discussed the case with resident and agree with the resident's documentation except as noted. Also the patient's clinical case was discussed with the patient's nurse. This medical document was created using an electronic medical record system with computerized dictation system. Although this document has been carefully reviewed, there might still be some phonetic and typographical errors. These areas are purely typographical due to imperfections of the software programs, and do not reflect any compromise in the patient's medical care. Late signature. Date of Service: Jun 10, 2025 Billing Provider: TERESO HARGROVE MD Common Visit Codes: 21530-[id number] INP/OBS CARE(HIGH) Secondary Visit Codes: 32507-UELDPMHO CARE PLAN 30 MINUTES (20 minutes) ORESTES JONES RESIDENT Jun 10, 2025 16:37 TERESO HARGROVE MD Jun 11, 2025 07:49
[2025-06-10] MEDS: TAMSULOSIN HYDROCHLORIDE 0.4 MG CAP PO SCH (21:27)
[2025-06-10] MEDS: cefTRIAXone 1GM/50ML D5W 50 ML IV SCH (21:27)
[2025-06-11] VITALS (13 sets, daily range): BP systolic 122–165; BP diastolic 76–119; PULSE 63–114; RESP 12–21; TEMP 97.6–98.4; O2SAT 65–98
[2025-06-11 08:04] LABS: Alanine Aminotransferase 15 U/L (7-40); Albumin 3.8 g/dL (3.2-4.8); Alkaline Phosphatase 82 U/L (46-116); Anion Gap 12 (5-15); BUN/Creatinine Ratio 11.4 (10.0-20.0); Blood Urea Nitrogen 10 mg/dL (9-23); Calcium 9.1 mg/dL (8.7-10.4); Carbon Dioxide 24 mmol/L (20-31); Chloride 104 mmol/L (98-107); Potassium 3.6 mmol/L (3.5-5.1); Sodium 140 mmol/L (136-145); Total Protein 6.0 g/dL (5.7-8.2)
[2025-06-11 08:05] LABS: Bilirubin, Total 0.4 mg/dL (0.2-1.0); Glucose 112 mg/dL (74-106)
[2025-06-11 08:21] LABS: Hematocrit 40.8 % (41.0-53.0); Hemoglobin 14.4 g/dL (13.5-17.5); Mean Corpuscular Hemoglobin 29.1 pg (28.0-32.0); Mean Corpuscular Volume 82.7 fL (80.0-100.0); Nucleated Red Blood Cells % 0.2 %
[2025-06-11] MEDS: IODIXANOL 320MG/ML 100ML BTL IV ONE (09:16)
[2025-06-11] MEDS: fentaNYL CITRATE 100 MCG/2 ML VL ONE (09:17)
[2025-06-11] MEDS: MIDAZOLAM HCL 2MG/2ML 2ml VIAL (1mg/ml) ONE (09:17)
[2025-06-11] MEDS: LIDOCAINE 2%HCL (LOCAL ANESTH.) INJ 20ML MDV ONE (09:17)
--- NOTE | 2025-06-11 10:54 | DVH ---
XY PERCUTANEOUS NEPHROSTOMY, HISTORY: NEPHROTUBE due to obstructive uropathy with a proximal ureteral kidney stone. PROCEDURE: Informed consent was obtained. The patient was placed on the fluoroscopic table in a prone position and IV sedation administered. The left flank was prepped with chlorhexidine which was allow ed to dry and draped in the usual sterile fashion. Contrast injected through the old nephrostomy tube . The old tube was removed. Time out was performed and the soft tissues infiltrated with 1% lidocaine local anesthetic. Utilizing ultrasound guidance, a 21 gauge Accu Stick needle was advanced from a po sterolateral approach into an middle pole calyx, and a small amount of contrast was injected under fl uoroscopy to confirm positioning. Over a mandril wire, exchange was made to a non-vascular access set , through which was advanced an 0.035 wire. Following serial dilation, an 8.5 Cambodian multipurpose nep hrostomy catheter was placed with tip pigtailed within the renal pelvis. Position was confirmed with antegrade nephrostogram. The catheter was secured in place and connected to gravity drainage. A steri le dressing was applied. No immediate complication was identified. DAP 231 FLUOROSCOPY TIME: 2.4 minutes. CONTRAST USED: 15 mL. SEDATION: Dr. Axel Horton was personally responsible for the administration of moderate sedation during the procedure performed, including the use of an independent trained observer who had no other duties during the procedure. The drugs utilized were IV fentanyl and versed (see nursing log for details). The total time of supervision by the attending physician was approximately 45 minutes. FINDINGS: Moderately dilated right renal collecting system involving the calyces/renal pelvis/ureter to the level of the proximal ureteral kidney stone. New 8.5 tajik nephrostomy tube via a posterio r mid pole calyceal access, with loop coiled within the renal pelvis. IMPRESSION: Previous nephrostomy tube was retracted outside of kidney without contrast seen in the urinary collec ting system. Left hydronephrosis due to proximal left ureteral kidney stone, status post placement of 8.5 tajik left percutaneous nephrostomy catheter. PLAN: Routine catheter care.
--- NOTE | 2025-06-11 10:55 | DVH ---
US US GUIDANCE FOR NEEDLE PLACEME, HISTORY: NEPHROTUBE due to obstructive uropathy with a proximal ureteral kidney stone. PROCEDURE: Informed consent was obtained. The patient was placed on the fluoroscopic table in a prone position and IV sedation administered. The left flank was prepped with chlorhexidine which was allow ed to dry and draped in the usual sterile fashion. Contrast injected through the old nephrostomy tube . The old tube was removed. Time out was performed and the soft tissues infiltrated with 1% lidocaine local anesthetic. Utilizing ultrasound guidance, a 21 gauge Accu Stick needle was advanced from a po sterolateral approach into an middle pole calyx, and a small amount of contrast was injected under fl uoroscopy to confirm positioning. Over a mandril wire, exchange was made to a non-vascular access set , through which was advanced an 0.035 wire. Following serial dilation, an 8.5 Romansh multipurpose nep hrostomy catheter was placed with tip pigtailed within the renal pelvis. Position was confirmed with antegrade nephrostogram. The catheter was secured in place and connected to gravity drainage. A steri le dressing was applied. No immediate complication was identified. DAP 231 FLUOROSCOPY TIME: 2.4 minutes. CONTRAST USED: 15 mL. SEDATION: Dr. Axel Horton was personally responsible for the administration of moderate sedation during the procedure performed, including the use of an independent trained observer who had no other duties during the procedure. The drugs utilized were IV fentanyl and versed (see nursing log for details). The total time of supervision by the attending physician was approximately 45 minutes. FINDINGS: Moderately dilated right renal collecting system involving the calyces/renal pelvis/ureter to the level of the proximal ureteral kidney stone. New 8.5 greek nephrostomy tube via a posterior m id pole calyceal access, with loop coiled within the renal pelvis. IMPRESSION: Previous nephrostomy tube was retracted outside of kidney without contrast seen in the urinary collec ting system. Left hydronephrosis due to proximal left ureteral kidney stone, status post placement of 8.5 greek l eft percutaneous nephrostomy catheter. PLAN: Routine catheter care.
[2025-06-11] MEDS: MORPHINE SULFATE INJ 2 MG/ml SYRG IV PRN (12:28)
--- NOTE | 2025-06-11 12:32 | DVHPNRES ---
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 He presented to the ED with acute right flank pain. He was discharged two days ago from our facility after right-sided nephrostomy tube placement due to a 10 mm obstructing kidney stone. The patient states that after discharge nephrostomy tube was draining clear urine and no significant pain was present at that time. The patient states that since this morning before coming to the ED, he noticed that the right nephrostomy tube was not draining any urine at all and the minimum amount of urine is tinged blood colored urine. This was accompanied by pain, which was 10 on 10, sharp. No aggravating or relieving factors. He reports exacerbation of the right flank pain with a associated nausea but no vomiting. He denies fever/chills, chest pain, shortness of breath or any other associated symptoms. The nephrostomy tube is draining minimal bloody tinged urine in the last 24 hours. His labs are significant for urine analysis with turbid urine, blood 3+. A bilateral kidney ultrasound shows right hydronephrosis, simple renal cyst. A CT abdomen shows 8 mm right ureteral kidney stone with right hydronephrosis; Right nephrostomy tube retracted out of kidney collecting system. Past history: Stroke- hemorrhagic, HTN, inguinal hernia right side, umbilical hernia, aortic aneurysm, arthritis of spine, depression, anxiety, TIA. Past surgical history: Appendectomy at the age of 12. Personal history: Nonsmoker, occasional alcohol use, no recreational drugs. He reports using cannabis oil. 06/11/25: Pain is decreased with pain medications.His vitals are stable. He will undergo exchange of nephrostomy tube today. Urology & IR onboard. Will continue the course. ROS: Constitutional: Denies weight loss, fever and chills. HEENT: Vision change since stroke in 2010, no new change. Respiratory: Denies shortness of breath and cough Cardiovascular: Denies chest discomfort or palpitations GI: Right flank pain. No associated nausea, vomiting, diarrhea. : Denies dysuria and urinary frequency. Musculoskeletal: Denies myalgias and joint pain Skin: Denies rash and pruritus. Neurological: Reduced motor strength in right side of body. Objective vital signs Vital Sign Date Time Temp Pulse Resp B/P (MAP) Pulse Ox O2 Delivery O2 Flow Rate FiO2 06/11/25 11:57 65 15 139/89 (106) 95 06/11/25 09:00 97.9 97.9 06/10/25 20:00 Room Air* 0 21 Total Intake and Output 06/10/25 06/10/25 06/11/25 15:00 23:00 07:00 Intake Total 1000 ml Output Total 200 ml Balance 1000 ml -200 ml medications Current Medications Medications Dose Ordered Sig/Gerardo Route Start Time Stop Time Status Last Admin Dose Admin Acetaminophen 650 mg Q6HP PRN PO 06/09/25 23:45 Acetaminophen/ Hydrocodone Bitart 1 tab Q4HP PRN PO 06/09/25 23:45 06/11/25 11:31 1 TAB Ondansetron HCl 4 mg Q4HP PRN IV 06/09/25 23:45 Tamsulosin HCl 0.4 mg DAILY PO 06/10/25 22:00 06/10/25 21:27 0.4 MG Carvedilol 12.5 mg BID PO 06/10/25 10:00 06/10/25 21:31 12.5 MG Amlodipine Besylate 10 mg DAILY PO 06/10/25 20:00 06/10/25 19:56 10 MG Lisinopril 40 mg DAILY PO 06/10/25 10:00 06/10/25 09:45 40 MG Atorvastatin Calcium 20 mg DAILY PO 06/10/25 10:00 Baclofen 10 mg DAILY PO 06/10/25 10:00 06/10/25 09:42 10 MG Ceftriaxone Sodium 50 ml @ 100 mls/hr DAILY@2200 IV 06/10/25 22:00 06/10/25 21:27 100 MLS/HR Morphine Sulfate 1 mg Q4HP PRN IV 06/10/25 13:45 Examination General: Patient alert and oriented in person, place and time. Patient following commands. HEENT: Normocephalic, atraumatic, moist mucous membranes Respiratory/pulmonary: Reduced breath sounds in left lower lung, no associated crackles or wheezes. Cardiovascular: Normal heart sounds S1 and S2 with no associated murmurs Abdomen: Mild tenderness in the right flank, no palpable masses. Nephrostomy tube minimally draining bloody fluid. Dressing is dry. Umbilical hernia, reducible. Extremities: Motor strength 1/5 in right leg, 3/5 in right arm. Left-sided motor strength normal. Peripheral Pulses: 3+ Radial (R). 3+ Radial (L). 3+ Dorsalis pedis (R). 3+ Dorsalis pedis(L) Skin: No rashes or pruritus, there is no sacral edema present at this time. laboratory and microbiology Laboratory Tests 06/11/25 06:08 Test 06/11/25 06:08 Range/Units Serum Glucose 112 H 74-106 mg/dL Microbiology Date/Time Source Procedure Growth Status 06/10/25 03:40 Nose MRSA Screen - Final Complete Problem List/Assessment/Plan Problem List/Assessment/Plan #Right-sided flank pain likely due displaced nephrostomy tube #Hydronephrosis #Nephrolithiasis #Possible right-sided pyelonephritis #Complicated UTI, possible -Urine analysis shows turbid urine, blood 3+, WBC 33 -Previous CT scan of the abdomen showed Moderate right hydronephrosis secondary to a partially obstructing proximal ureteral calculus measuring 10 mm. -CT scan today shows tube retraction out of collecting system. -Urology consulted. IR consulted -He will undergo exchange of percutaneous nephrostomy tube. F/b Advised lithotripsy. -Bilateral kidney ultrasound shows hydronephrosis -Continue IV ceftriaxone -Avoiding aggressive IV fluids -Tamsulosin 0.4 mg daily #Primary hypertension -Continue carvedilol 12.5 mg b.i.d. -Continue amlodipine 10 mg daily -Continue lisinopril 40 mg daily -Monitor blood pressure closely #Dyslipidemia -Continue atorvastatin 20 mg daily #History of CVA in 2010 with right-sided residual deficits #History of multiple TIAs -Hold aspirin until patient is evaluated for nephrostomy tube/ poss urologic intervention -Resume aspirin afterwards -Hold dvt prophylaxis -Pneumatic compression device started #Hypokalemia -We will continue monitoring and managing Goals of care discussed with the patient at bedside for> 25min Full code Plan discussed with Dr. Florentino Plan discussed with: Patient Date of Service: Jun 11, 2025 Billing Provider: MARK CELESTIN MD Common Visit Codes: [id number] INP/OBS CARE(HIGH) ORESTES JONES RESIDENT Jun 11, 2025 12:32 MARK CELESTIN MD Jun 20, 2025 01:11
[2025-06-11 21:31] LABS: Hematocrit 41.7 % (41.0-53.0); Hemoglobin 15.2 g/dL (13.5-17.5); Mean Corpuscular Hemoglobin 29.3 pg (28.0-32.0); Mean Corpuscular Volume 80.7 fL (80.0-100.0); Nucleated Red Blood Cells % 0.1 %
[2025-06-12] VITALS (9 sets, daily range): BP systolic 119–158; BP diastolic 84–106; PULSE 78–123; RESP 14–18; TEMP 97.6–98.2; O2SAT 92–97
--- NOTE | 2025-06-12 00:24 | DVH ---
Exam: CT CT AB PEL WO CON-NO ORAL OR IV History: S/P RT Nephrostomy tube diogenes, RT Ureteric stone, Hematuria Comparison Study: CT CT AB PEL WO CON-NO ORAL OR IV on DOS: 06/10/25, CT CT AB PEL WO CON-NO ORAL OR I V on DOS: 06/07/25 Technique: Multidetector spiral CT of the abdomen was performed from lung bases to pubic symphysis. I maging was performed without IV contrast. Axial, coronal and sagittal multiplanar reformats were obta ined from the axial data set by the technologist. Radiation Dose : 1. Abdomen/Pelvis: CTDIvol 25.7 mGy, DLP 1503.83 mGy*cm. Findings: Evaluation of solid organs is limited due to lack of intravenous contrast use. Lung Bases: No acute or significant lung base finding. Mild bibasilar atelectasis. Normal heart size. No pleural or pericardial effusion. Liver: The liver is normal in size. No focal lesions. Gallbladder and Biliary Tree: Unremarkable Spleen: Unremarkable Pancreas: The pancreas is grossly normal in appearance. Adrenal Glands: Unremarkable Kidneys: Successfully repositioned right percutaneous nephrostomy with pigtail positioned within the renal pelvis. The 8 mm proximal ureteral calculus is unchanged in its position. Small collection of r etroperitoneal gas within the nephrostomy tract. Bladder: Grossly unremarkable for degree of distention. Bowel: The stomach is grossly normal in appearance. Small bowel and colon are normal in caliber and d istribution. The appendix is not visualized; however, no secondary findings of acute appendicitis kalani ntified. Ascites: Absent Lymphadenopathy: No mesenteric, retroperitoneal or periportal lymphadenopathy. Abdominal Wall and Mesentery: Small fat containing umbilical hernia.. Vasculature: The visualized abdominal aorta is normal in size and caliber. Evaluation of abdominal a nd pelvic vessels is limited due to lack of intravenous contrast. Pelvic Organs: Prostatomegaly, measuring up to 6.2 cm transverse. Right inguinal hernia contains fat and a portion of the urinary bladder. Musculoskeletal: No aggressive focal bony lesions, acute fractures or dislocation. IMPRESSION: 1. Successfully repositioned right percutaneous nephrostomy with stable appearing proximal ureteral c alculus measuring 8 mm and trace retroperitoneal gas within the nephrostomy tract. 2. Prostatomegaly. 3. Right inguinal hernia containing fat and a portion of the urinary bladder. Radiation optimization: All CT scans at this facility use at least one of these dose optimization simi hniques: automated exposure control mA and/or kV adjustment per patient size (includes targeted exam s where dose is matched to clinical indication) or iterative reconstruction.
[2025-06-12 07:58] LABS: Alanine Aminotransferase 17 U/L (7-40); Alkaline Phosphatase 80 U/L (46-116); Anion Gap 12 (5-15); BUN/Creatinine Ratio 15.2 (10.0-20.0); Blood Urea Nitrogen 14 mg/dL (9-23); Calcium 9.1 mg/dL (8.7-10.4); Carbon Dioxide 27 mmol/L (20-31); Chloride 100 mmol/L (98-107); Glucose 98 mg/dL (74-106); Sodium 139 mmol/L (136-145); Total Protein 6.2 g/dL (5.7-8.2)
[2025-06-12 07:59] LABS: Albumin 4.1 g/dL (3.2-4.8); Bilirubin, Total 0.5 mg/dL (0.2-1.0)
[2025-06-12 08:03] LABS: Potassium 3.1 mmol/L (3.5-5.1)
[2025-06-12] MEDS: POTASSIUM EFFERVESENT TAB 25 MEQ PO ONE (08:30)
--- NOTE | 2025-06-12 08:37 | DVHPNRES ---
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 He presented to the ED with acute right flank pain. He was discharged two days ago from our facility after right-sided nephrostomy tube placement due to a 10 mm obstructing kidney stone. The patient states that after discharge nephrostomy tube was draining clear urine and no significant pain was present at that time. The patient states that since this morning before coming to the ED, he noticed that the right nephrostomy tube was not draining any urine at all and the minimum amount of urine is tinged blood colored urine. This was accompanied by pain, which was 10 on 10, sharp. No aggravating or relieving factors. He reports exacerbation of the right flank pain with a associated nausea but no vomiting. He denies fever/chills, chest pain, shortness of breath or any other associated symptoms. The nephrostomy tube is draining minimal bloody tinged urine in the last 24 hours. His labs are significant for urine analysis with turbid urine, blood 3+. A bilateral kidney ultrasound shows right hydronephrosis, simple renal cyst. A CT abdomen shows 8 mm right ureteral kidney stone with right hydronephrosis; Right nephrostomy tube retracted out of kidney collecting system. Past history: Stroke- hemorrhagic, HTN, inguinal hernia right side, umbilical hernia, aortic aneurysm, arthritis of spine, depression, anxiety, TIA. Past surgical history: Appendectomy at the age of 12. Personal history: Nonsmoker, occasional alcohol use, no recreational drugs. He reports using cannabis oil. 06/11/25: Pain is decreased with pain medications.His vitals are stable. He will undergo exchange of nephrostomy tube today. Urology & IR onboard. Will continue the course. 06/12/25: Patient examined at bedside today. He underwent nephrostomy exhange yesterday. He complained of intractable pain and blood with clots through the tube. CT abdomen showed repositioned right percutaneous nephrostomy with stable appearing proximal ureteral calculus measuring 8 mm and trace retroperitoneal gas within the nephrostomy tract. Labs show low potassium today. Will undergo lithotripsy today. We will continue monitoring and managing. ROS: Constitutional: Denies weight loss, fever and chills. HEENT: Vision change since stroke in 2010, no new change. Respiratory: Denies shortness of breath and cough Cardiovascular: Denies chest discomfort or palpitations GI: Right flank pain. No associated nausea, vomiting, diarrhea. : Denies dysuria and urinary frequency. Musculoskeletal: Denies myalgias and joint pain Skin: Denies rash and pruritus. Neurological: Reduced motor strength in right side of body. Objective vital signs Vital Sign Date Time Temp Pulse Resp B/P (MAP) Pulse Ox O2 Delivery O2 Flow Rate FiO2 06/12/25 05:00 98.1 78 18 147/105 (119) 97 98.1 06/11/25 20:00 Room Air* 0 21 Total Intake and Output 06/11/25 06/11/25 06/12/25 15:00 23:00 07:00 Intake Total 900 ml 740 ml Output Total 1200 ml Balance 900 ml -460 ml medications Current Medications Medications Dose Ordered Sig/Gerardo Route Start Time Stop Time Status Last Admin Dose Admin Acetaminophen 650 mg Q6HP PRN PO 06/09/25 23:45 Acetaminophen/ Hydrocodone Bitart 1 tab Q4HP PRN PO 06/09/25 23:45 06/11/25 11:31 1 TAB Ondansetron HCl 4 mg Q4HP PRN IV 06/09/25 23:45 Tamsulosin HCl 0.4 mg DAILY PO 06/10/25 22:00 06/10/25 21:27 0.4 MG Carvedilol 12.5 mg BID PO 06/10/25 10:00 06/11/25 22:19 12.5 MG Amlodipine Besylate 10 mg DAILY PO 06/10/25 20:00 06/10/25 19:56 10 MG Lisinopril 40 mg DAILY PO 06/10/25 10:00 06/10/25 09:45 40 MG Atorvastatin Calcium 20 mg DAILY PO 06/10/25 10:00 Baclofen 10 mg DAILY PO 06/10/25 10:00 06/11/25 12:27 10 MG Ceftriaxone Sodium 50 ml @ 100 mls/hr DAILY@2200 IV 06/10/25 22:00 06/11/25 22:19 100 MLS/HR Morphine Sulfate 1 mg Q4HP PRN IV 06/10/25 13:45 06/12/25 00:09 1 MG Examination General: Patient alert and oriented in person, place and time. Patient following commands. HEENT: Normocephalic, atraumatic, moist mucous membranes Respiratory/pulmonary: Reduced breath sounds in left lower lung, no associated crackles or wheezes. Cardiovascular: Normal heart sounds S1 and S2 with no associated murmurs Abdomen: Tenderness in the right flank and around the new nephrostomy tube insertion site. No palpable masses. Nephrostomy tube draining bloody fluid. Few clots seen in the nephrostomy bag. Dressing is dry. Umbilical hernia, reducible. Extremities: Motor strength 1/5 in right leg, 3/5 in right arm. Left-sided motor strength normal. Peripheral Pulses: 3+ Radial (R). 3+ Radial (L). 3+ Dorsalis pedis (R). 3+ Dorsalis pedis(L) Skin: No rashes or pruritus, there is no sacral edema present at this time. laboratory and microbiology Laboratory Tests 06/12/25 05:50 Test 06/12/25 05:50 Range/Units Serum Glucose 98 74-106 mg/dL Microbiology Date/Time Source Procedure Growth Status 06/10/25 03:40 Nose MRSA Screen - Final Complete Problem List/Assessment/Plan Problem List/Assessment/Plan #Right-sided flank pain likely due displaced nephrostomy tube #Hydronephrosis #Nephrolithiasis #Possible right-sided pyelonephritis #Complicated UTI, possible -Urine analysis shows turbid urine, blood 3+, WBC 33 -Previous CT scan of the abdomen showed Moderate right hydronephrosis secondary to a partially obstructing proximal ureteral calculus measuring 10 mm. -CT scan today shows tube retraction out of collecting system. -Urology consulted. IR consulted -Bilateral kidney ultrasound showed hydronephrosis -Continue IV ceftriaxone -Continue pain management. Avoiding aggressive IV fluids -Tamsulosin 0.4 mg daily -Status post exchange of percutaneous nephrostomy tube. Will be F/b lithotripsy today. Will continue to monitor. -Ct abdromen done after the nephrostomy exchange shows: successfully repositioned right percutaneous nephrostomy with stable appearing proximal ureteral calculus measuring 8 mm and trace retroperitoneal gas within the nephrostomy tract. #Primary hypertension -Continue carvedilol 12.5 mg b.i.d. -Continue amlodipine 10 mg daily -Continue lisinopril 40 mg daily -Monitor blood pressure closely #Dyslipidemia -Continue atorvastatin 20 mg daily #History of CVA in 2010 with right-sided residual deficits #History of multiple TIAs -Hold aspirin until patient is evaluated for nephrostomy tube/ poss urologic intervention -Resume aspirin afterwards -Hold dvt prophylaxis -Pneumatic compression device started #Hypokalemia -We will continue monitoring and managing Goals of care discussed with the patient at bedside for> 25min Full code Plan discussed with Dr. Florentino Plan discussed with: Patient My Orders My Orders Orders - ORESTES JONES Procedure Category Date Status Time Complete Blood Count LAB 06/12/25 In Process 04:00 Date of Service: Jun 12, 2025 Billing Provider: MARK CELESTIN MD Common Visit Codes: [id number] INP/OBS CARE(HIGH) ORESTES JONES Jun 12, 2025 08:37 MARK CELESTIN MD Jun 20, 2025 01:16
[2025-06-12 08:51] LABS: Hematocrit 39.9 % (41.0-53.0); Hemoglobin 14.1 g/dL (13.5-17.5); Mean Corpuscular Hemoglobin 28.9 pg (28.0-32.0); Mean Corpuscular Volume 81.6 fL (80.0-100.0); Nucleated Red Blood Cells % 0.3 %
[2025-06-12] MEDS: CIPROFLOXACIN 400MG/200ML 200 ML IV ONE (09:12)
[2025-06-12] MEDS ORDERED: KETAMINE 50mg/ML 1ml syringe ONE (10:50)
[2025-06-12] MEDS ORDERED: SODIUM CHLORIDE LOCK 10 ML ONE (10:50)
[2025-06-12] MEDS ORDERED: LIDOCAINE 1% INJ PF 5ML AMP ONE (10:50)
[2025-06-12] MEDS ORDERED: PROPOFOL 10 MG/ML 20 ML IV ONE (10:50)
[2025-06-12] MEDS ORDERED: fentaNYL CITRATE 100 MCG/2 ML VL ONE (10:50)
[2025-06-12] MEDS ORDERED: ONDANSETRON HCL 4 MG/2 ML VIAL ONE (10:50)
[2025-06-12] MEDS ORDERED: LIDOCAINE HCL 2% TOP JELLY 5ML TOP ONE (10:50)
[2025-06-12] MEDS ORDERED: MIDAZOLAM HCL 2MG/2ML 2ml VIAL (1mg/ml) ONE (10:50)
[2025-06-12] MEDS ORDERED: SUGAMMADEX 200mg/2ml Vial (100MG/ML) IV ONE (12:01)
--- NOTE | 2025-06-12 12:27 | DVHNC2 ---
Procedure - OPERATIVE REPORT Pre-op. Diagnosis: right proximal ureteral calculus, 8 mm right hydronephrosis, status post right percutaneous nephrostomy tube placement Post-op. Diagnosis: Same as pre-op diagnosis Operation: Extracorporeal Shockwave Lithotripsy Anesthesia: General Indications: Patient was found to have symptomatic Urolithiasis. Patient is here to undergo ESWL therapy. Informed Consent: The procedure was explained to the patient. It's risks include but not limited to infection, bleeding, and damage to the kidney. Patient fully understood and signed the consent. Other options such as watchful waiting, Ureteroscopy, Percutaneous surgery and open surgery were also discussed. Details of Procedure: Under satisfactory anesthesia, the patient was positioned on the lithotripsy table. Using fluoroscopy the stone was localized. Starting at low energy levels, shockwave treatment was commenced. The energy level was gradually increased and stone was fragmented. Once the treatment was completed, patient was then taken off the lithotripsy table and sent to recovery room in stable condition. His right nephrostomy tube was closed so that the fragmented stones can pass into the bladder. Specimens: None Complications: None Findings: Stone Laterality: right Stone Location: proximal ureteral 8 mm stone Shocks Delivered: 2500 Max Power settin Fragmentation Quality: Well Notes: If patient tolerates the closed nephrostomy tube and passes the fragmented stones, the nephrostomy tube can be removed OLGA YOUNG MD Jun 12, 2025 12:27
--- NOTE | 2025-06-12 19:53 | DVHDSRES ---
Discharge Summary Date of Admission Resident Creating Document: ORESTES JONES RESIDENT Jun 09, 2025 at 23:31 Date of Discharge: Jun 12, 2025 Admitting Diagnosis Right-sided flank pain, right-sided hydronephrosis, due to possible right-sided nephrostomy tube misplacement/obstruction Wounds: No large wounds. Labs/Diagnostic Data: Laboratory Results Test 06/12/25 15:43 06/12/25 05:50 06/10/25 10:42 06/09/25 21:20 Potassium Level 3.6 mmol/L (3.5-5.1) White Blood Count 9.7 10^3/uL (4.4-10.8) Red Blood Count 4.89 10^6/uL (4.5-5.90) Hemoglobin 14.1 g/dL (13.5-17.5) Hematocrit 39.9 % (41.0-53.0) Mean Corpuscular Volume 81.6 fL (80.0-100.0) Mean Corpuscular Hemoglobin 28.9 pg (28.0-32.0) Mean Corpuscular Hemoglobin Concent 35.4 g/dL (32.0-36.0) Red Cell Distribution Width 13.8 % (11.8-14.3) Platelet Count 302 10^3/uL (140-450) Mean Platelet Volume 8.2 fL (6.9-10.8) Neutrophils (%) (Auto) 60.2 % (37.0-80.0) Lymphocytes (%) (Auto) 26.9 % (10.0-50.0) Monocytes (%) (Auto) 8.7 % (0.0-12.0) Eosinophils (%) (Auto) 3.4 % (0.0-7.0) Basophils (%) (Auto) 0.8 % (0.0-2.0) Neutrophils # (Auto) 5.8 10 ^3/uL (1.6-8.6) Lymphocytes # (Auto) 2.6 10 ^3/uL (0.4-5.4) Monocytes # (Auto) 0.8 10 ^3/uL (0-1.3) Eosinophils # (Auto) 0.3 10 ^3/uL (0-0.8) Basophils # (Auto) 0.1 10 ^3/uL (0-0.2) Nucleated Red Blood Cells 0.3 % Sodium Level 139 mmol/L (136-145) Chloride Level 100 mmol/L (98-107) Carbon Dioxide Level 27 mmol/L (20-31) Anion Gap 12 (5-15) Blood Urea Nitrogen 14 mg/dL (9-23) Creatinine 0.92 mg/dL (0.700-1.30) Glomerular Filtration Rate Calc 98 mL/min (>90) BUN/Creatinine Ratio 15.2 (10.0-20.0) Serum Glucose 98 mg/dL (74-106) Calcium Level 9.1 mg/dL (8.7-10.4) Magnesium Level 2.0 mg/dL (1.6-2.6) Total Bilirubin 0.5 mg/dL (0.2-1.0) Aspartate Amino Transferase (AST) 18 U/L (13-40) Alanine Aminotransferase (ALT) 17 U/L (7-40) Alkaline Phosphatase 80 U/L (46-116) Total Protein 6.2 g/dL (5.7-8.2) Albumin 4.1 g/dL (3.2-4.8) Prothrombin Time 11.0 sec (9.3-11.8) Prothrombin Time INR 1.04 (0.9-1.15) Activated Partial Thromboplast Time 29.5 SEC (24.5-34.5) Urine Color Yellow (Yellow) Urine Clarity Turbid (Clear) Urine pH 6.0 (5.0-9.0) Urine Specific Jackpot 1.027 (1.001-1.035) Urine Protein 1+ (Negative) Urine Ketones Negative (Negative) Urine Blood 3+ /uL (Negative) Urine Nitrite Negative (Negative) Urine Bilirubin Negative (Negative) Urine Urobilinogen Normal mg/dL (Negative) Urine Leukocyte Esterase 1+ /uL (Negative) Urine RBC 882 /hpf (0 - 3) Urine Microscopic WBC 33 /HPF (0-3) Urine Squamous Epithelial Cells Few /hpf (<5) Urine Calcium Oxalate Crystals Few (None Seen) Urine Bacteria None seen /hpf (None Seen) Urine Mucus Few (None Seen) Urine Yeast (Budding) Occasional /hpf (None Urine Glucose Normal mg/dL (Normal) Test 06/09/25 19:06 Hemoglobin A1c 5.4 % A1C (<5.7) Triglycerides Level 122 mg/dL (< 150) Cholesterol Level 138 mg/dL (< 200) LDL Cholesterol 79 mg/dL (< 100) HDL Cholesterol 45 mg/dL (40-59) Other Laboratory Tests 06/12/25 15:43 06/12/25 05:50 Brief Hx & Hospital Course: David Vicente is a 54-year-old male with past medical history of hypertension, 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 He presented to the ED with acute right flank pain. He was discharged two days before presentation to ED from our facility after right- sided nephrostomy tube placement due to a 10 mm obstructing kidney stone. He stated that after discharge nephrostomy tube was draining clear urine and no significant pain was present at that time. He noticed that the right nephrostomy tube was not draining any urine at all and the minimum amount of urine is tinged blood colored urine. This was accompanied by pain, which was 10 on 10, sharp. No aggravating or relieving factors. He reported exacerbation of the right flank pain with a associated nausea but no vomiting. He denied fever/chills, chest pain, shortness of breath or any other associated symptoms. The nephrostomy tube is draining minimal bloody tinged urine in the last 24 hours. His labs were significant for urine analysis with turbid urine, blood 3+. A bilateral kidney ultrasound shows right hydronephrosis, simple renal cyst. A CT abdomen shows 8 mm right ureteral kidney stone with right hydronephrosis; Right nephrostomy tube retracted out of kidney collecting system. During his stay, he was started on IV ceftriaxone and pain management. Urology and IR was consulted. He underwent exchange of nephrostomy tube. He was monitored after the exchange of nephrostomy tube, he complained of blood in the nephrostomy tube. His vitals remained stable. Labs show stable hemoglobin. CT abdomen showed repositioned right percutaneous nephrostomy with stable appearing proximal ureteral calculus measuring 8 mm and trace retroperitoneal gas within the nephrostomy tract. And was scheduled for follow-up lithotripsy. He was stable post procedure. Today, his labs are WNL, his vitals are stable. We will discharge him to home. Discharge plan: Consults/Reason for consult Urology was consulted, advised IR consult for exchange of PCN. Followed by lithotripsy TBA Operations or Procedures Extracorporeal Shockwave Lithotripsy Anesthesia: General Indications: Patient was found to have symptomatic Urolithiasis. Patient is here to undergo ESWL therapy. Informed Consent: The procedure was explained to the patient. It's risks include but not limited to infection, bleeding, and damage to the kidney. Patient fully understood and signed the consent. Other options such as watchful waiting, Ureteroscopy, Percutaneous surgery and open surgery were also discussed. Details of Procedure: Under satisfactory anesthesia, the patient was positioned on the lithotripsy table. Using fluoroscopy the stone was localized. Starting at low energy levels, shockwave treatment was commenced. The energy level was gradually increased and stone was fragmented. Once the treatment was completed, patient was then taken off the lithotripsy table and sent to recovery room in stable condition. His right nephrostomy tube was closed so that the fragmented stones can pass into the bladder. Specimens: None Complications: None Findings: Stone Laterality: right Stone Location: proximal ureteral 8 mm stone Shocks Delivered: 2500 Max Power settin Fragmentation Quality: Well Notes: If patient tolerates the closed nephrostomy tube and passes the fragmented stones, the nephrostomy tube can be removed ---- CT CT AB PEL WO CON-NO ORAL OR IV History: S/P RT Nephrostomy tube diogenes, RT Ureteric stone, Hematuria Comparison Study: CT CT AB PEL WO CON-NO ORAL OR IV on DOS: 06/10/25, CT CT AB PEL WO CON-NO ORAL OR IV on DOS: 06/07/25 Technique: Multidetector spiral CT of the abdomen was performed from lung bases to pubic symphysis. Imaging was performed without IV contrast. Axial, coronal and sagittal multiplanar reformats were obtained from the axial data set by the technologist. Radiation Dose : 1. Abdomen/Pelvis: CTDIvol 25.7 mGy, DLP 1503.83 mGy*cm. Findings: Evaluation of solid organs is limited due to lack of intravenous contrast use. Lung Bases: No acute or significant lung base finding. Mild bibasilar atelectasis. Normal heart size. No pleural or pericardial effusion. Liver: The liver is normal in size. No focal lesions. Gallbladder and Biliary Tree: Unremarkable Spleen: Unremarkable Pancreas: The pancreas is grossly normal in appearance. Adrenal Glands: Unremarkable Kidneys: Successfully repositioned right percutaneous nephrostomy with pigtail positioned within the renal pelvis. The 8 mm proximal ureteral calculus is unchanged in its position. Small collection of retroperitoneal gas within the nephrostomy tract. Bladder: Grossly unremarkable for degree of distention. Bowel: The stomach is grossly normal in appearance. Small bowel and colon are normal in caliber and distribution. The appendix is not visualized; however, no secondary findings of acute appendicitis identified. Ascites: Absent Lymphadenopathy: No mesenteric, retroperitoneal or periportal lymphadenopathy. Abdominal Wall and Mesentery: Small fat containing umbilical hernia.. Vasculature: The visualized abdominal aorta is normal in size and caliber. Evaluation of abdominal and pelvic vessels is limited due to lack of intravenous contrast. Pelvic Organs: Prostatomegaly, measuring up to 6.2 cm transverse. Right inguinal hernia contains fat and a portion of the urinary bladder. Musculoskeletal: No aggressive focal bony lesions, acute fractures or dislocation. IMPRESSION: 1. Successfully repositioned right percutaneous nephrostomy with stable appearing proximal ureteral calculus measuring 8 mm and trace retroperitoneal gas within the nephrostomy tract. 2. Prostatomegaly. 3. Right inguinal hernia containing fat and a portion of the urinary bladder. ---- XY PERCUTANEOUS NEPHROSTOMY, HISTORY: NEPHROTUBE due to obstructive uropathy with a proximal ureteral kidney stone. PROCEDURE: Informed consent was obtained. The patient was placed on the fluoroscopic table in a prone position and IV sedation administered. The left flank was prepped with chlorhexidine which was allowed to dry and draped in the usual sterile fashion. Contrast injected through the old nephrostomy tube. The old tube was removed. Time out was performed and the soft tissues infiltrated with 1% lidocaine local anesthetic. Utilizing ultrasound guidance, a 21 gauge Accu Stick needle was advanced from a posterolateral approach into an middle pole calyx, and a small amount of contrast was injected under fluoroscopy to confirm positioning. Over a mandril wire, exchange was made to a non-vascular access set, through which was advanced an 0.035 wire. Following serial dilation, an 8.5 Mauritian multipurpose nephrostomy catheter was placed with tip pigtailed within the renal pelvis. Position was confirmed with antegrade nephrostogram. The catheter was secured in place and connected to gravity drainage. A sterile dressing was applied. No immediate complication was identified. DAP 231 FLUOROSCOPY TIME: 2.4 minutes. CONTRAST USED: 15 mL. SEDATION: Dr. Axel Horton was personally responsible for the administration of moderate sedation during the procedure performed, including the use of an independent trained observer who had no other duties during the procedure. The drugs utilized were IV fentanyl and versed (see nursing log for details). The total time of supervision by the attending physician was approximately 45 minutes. FINDINGS: Moderately dilated right renal collecting system involving the calyces/renal pelvis/ureter to the level of the proximal ureteral kidney stone. New 8.5 [place] nephrostomy tube via a posterior mid pole calyceal access, with loop coiled within the renal pelvis. IMPRESSION: Previous nephrostomy tube was retracted outside of kidney without contrast seen in the urinary collecting system. Left hydronephrosis due to proximal left ureteral kidney stone, status post placement of 8.5 [place] left percutaneous nephrostomy catheter. ---- US US GUIDANCE FOR NEEDLE PLACEME, HISTORY: NEPHROTUBE due to obstructive uropathy with a proximal ureteral kidney stone. PROCEDURE: Informed consent was obtained. The patient was placed on the fluoroscopic table in a prone position and IV sedation administered. The left flank was prepped with chlorhexidine which was allowed to dry and draped in the usual sterile fashion. Contrast injected through the old nephrostomy tube. The old tube was removed. Time out was performed and the soft tissues infiltrated with 1% lidocaine local anesthetic. Utilizing ultrasound guidance, a 21 gauge Accu Stick needle was advanced from a posterolateral approach into an middle pole calyx, and a small amount of contrast was injected under fluoroscopy to confirm positioning. Over a mandril wire, exchange was made to a non-vascular access set, through which was advanced an 0.035 wire. Following serial dilation, an 8.5 Maur[place] multipurpose nephrostomy catheter was placed with tip pigtailed within the renal pelvis. Position was confirmed with antegrade nephrostogram. The catheter was secured in place and connected to gravity drainage. A sterile dressing was applied. No immediate complication was identified. DAP 231 FLUOROSCOPY TIME: 2.4 minutes. CONTRAST USED: 15 mL. SEDATION: Dr. Axel Horton was personally responsible for the administration of moderate sedation during the procedure performed, including the use of an independent trained observer who had no other duties during the procedure. The drugs utilized were IV fentanyl and versed (see nursing log for details). The total time of supervision by the attending physician was approximately 45 minutes. FINDINGS: Moderately dilated right renal collecting system involving the calyces/renal pelvis/ureter to the level of the proximal ureteral kidney stone. New 8.5 [place] island[place] nephrostomy tube via a posterior mid pole calyceal access, with loop coiled within the renal pelvis. IMPRESSION: Previous nephrostomy tube was retracted outside of kidney without contrast seen in the urinary collecting system. Left hydronephrosis due to proximal left ureteral kidney stone, status post placement of 8.5 [place] island[place] left percutaneous nephrostomy catheter. ---- T CT AB PEL WO CON-NO ORAL OR IV INDICATION: nephrolithiasis EXAM DATE: 06/10/2025 09:15 AM COMPARISON: CT CT AB PEL WO CON-NO ORAL OR IV on DOS: 06/07/25 RADIATION DOSE: CTDIvol: 19 mGy, DLP: 1119 mGy*cm PROCEDURE: Helical CT images were obtained of the abdomen and pelvis without IV contrast Sagittal and coronal reconstructions are provided. ORAL CONTRAST: None. ADDITIONAL IMAGES / REFORMATS: None All CT scans at this medical facility are performed using dose modulation techniques as appropriate to a performed exam including the following: Automated exposure control was utilized; adjustment of the MA and/or KV according to patient size; and use of iterative reconstruction technique. FINDINGS: LUNG BASE: Normal. LIVER: Normal. GALLBLADDER AND BILIARY TREE: No calcified gallstones. Normal caliber wall. No intra- or extrahepatic biliary ductal dilation. PANCREAS: Normal. SPLEEN: Normal. BOWEL: There is moderate colonic diverticulosis. The appendix is not well visualized. ADRENALS: Normal. KIDNEYS AND URETER: Similar 8 mm proximal right ureteral kidney stone with mild right hydronephrosis. Right nephrostomy tube is retracted out of kidney collecting system. BLADDER: Normal. REPRODUCTIVE ORGANS: Normal. LYMPH NODES:No lymphadenopathy. PERITONEUM: No ascites or free air. No other fluid collection. VESSELS: Scattered atherosclerotic calcifications are noted. RETROPERITONEUM: Normal. ABDOMINAL WALL: Right inguinal hernia contains a portion of the bladder. Small fat containing umbilical hernia. BONES: Scattered osseous degenerative changes are noted. IMPRESSION: Similar 8 mm proximal right ureteral kidney stone with mild right hydronephrosis. Right nephrostomy tube is retracted out of kidney collecting system. ---- RIGHT SIDED NEPHROSTOMY TUBE AND NEPHROLITHIASIS TECHNIQUE: Multiple real-time sonographic images of the kidneys and bladder were obtained. COMPARISON: None FINDINGS: RIGHT kidney measures 11.8 cm in length. Nephrostomy noted. Moderate hydronephrosis. LEFT kidney measures 13.2 cm in length. Simple appearing cyst measuring 1.5 x 1.4 x 1.3 cm within the superior pole. No hydronephrosis. No large intraluminal masses are seen in the bladder. Bladder is decompressed. Post void residual not assessed. IMPRESSION: 1. Moderate right hydronephrosis status post nephrostomy. 2. Simple appearing left superior pole renal cyst. Condition at Discharge: Stable Final Diagnosis/Problems List Right-sided flank pain likely due displaced nephrostomy tube Hydronephrosis Nephrolithiasis Possible right-sided pyelonephritis Complicated UTI, possible Primary hypertension Dyslipidemia History of CVA in 2010 with right-sided residual deficits History of multiple TIAs Hypokalemia Discharge Disposition: Home Discharge Instruct/Medications Diet: Renal Activity: No Restrictions, As Tolerated Scheduled Amlodipine Besylate (Amlodipine Besylate), 10 MG PO DAILY, (Reported) Amoxicillin & Pot Clavulanate (Augmentin Tablet), 875 MG PO BID Bupropion Hcl (Bupropion Hcl), 150 MG PO BID, (Reported) Carvedilol (Carvedilol), 12.5 MG PO Q12HR, (Reported) Cholecalciferol (Vitamin D3), 5,000 UNIT PO DAILY, (Reported) Clonidine Hydrochloride (Clonidine Hcl), 0.1 MG PO TID, (Reported) Lisinopril (Lisinopril), 40 MG PO BID, (Reported) Minoxidil (Loniten), 2.5 MG PO BID, (Reported) Potassium Chloride (Potassium Chloride Cr), 20 MEQ PO DAILY, (Reported) Simvastatin (Simvastatin), 20 MG PO DAILY, (Reported) Scheduled PRN Baclofen (Baclofen), 20 MG PO TID PRN for PAIN SCALE 1 THRU 6, (Reported) Ondansetron Odt 4MG Tab (Zofran Po), 4 MG PO TIDP PRN Discontinued Medications Quetiapine Fumerate (Quetiapine Fumarate), 1 TAB PO QPM, (Reported) Discharge Statement: "Patient was advised to return to the ER or call 911 if any headaches, dizziness, shortness of breath, chest pain, abdominal pain, bleeding, fevers, or worsening of medical condition. Patient was counseled about treatment plan, medications, possible side effects, patientverbalized understanding. All questions were answered to the best of my ability. This discharge took greater then 30 minutes in planning, reviewing documentation, counseling the patient, and discussing with other team members." ASSESSMENT ASSESSMENT Assessment ORESTES JONES RESIDENT Jun 12, 2025 19:53
[2025-06-12] MEDS: ACETAMINOPHEN 325 MG TAB PO PRN (20:26)
[2025-06-13] VITALS (7 sets, daily range): BP systolic 119–155; BP diastolic 73–107; PULSE 93–115; RESP 16–20; TEMP 97.3–98.3; O2SAT 93–96
[2025-06-13 07:18] LABS: Hematocrit 46.4 % (41.0-53.0); Hemoglobin 16.1 g/dL (13.5-17.5); Mean Corpuscular Hemoglobin 29.5 pg (28.0-32.0); Mean Corpuscular Volume 85.1 fL (80.0-100.0); Nucleated Red Blood Cells % 0.1 %
[2025-06-13 07:26] LABS: Albumin 4.6 g/dL (3.2-4.8); Alkaline Phosphatase 94 U/L (46-116); Anion Gap 15 (5-15); Bilirubin, Total 0.6 mg/dL (0.2-1.0); Calcium 10.1 mg/dL (8.7-10.4); Chloride 100 mmol/L (98-107); Total Protein 7.4 g/dL (5.7-8.2)
[2025-06-13 07:35] LABS: BUN/Creatinine Ratio 9.2 (10.0-20.0)
[2025-06-13 07:36] LABS: Alanine Aminotransferase 24 U/L (7-40); Blood Urea Nitrogen 11 mg/dL (9-23); Carbon Dioxide 19 mmol/L (20-31); Glucose 123 mg/dL (74-106); Potassium 4.5 mmol/L (3.5-5.1); Sodium 134 mmol/L (136-145)
--- NOTE | 2025-06-13 09:24 | DVH ---
EXAM: XY CHEST XRAY 1 VIEW Indication: pain Technique: Single frontal view of the chest was obtained Comparison: XY CHEST PORTABLE on DOS: 12/16/23, CHEST PORTABLE on DOS: 09/30/20 FINDINGS: Lines and Tubes: None Lungs: No focal consolidation. Pleura: No effusion. No pneumothorax. Cardiomediastinal contours: Unremarkable Bones: No acute osseous abnormality. IMPRESSION: No acute cardiopulmonary disease.
--- NOTE | 2025-06-13 16:21 | DVHDSRES ---
Discharge Summary Date of Admission Resident Creating Document: ORESTES JONES RESIDENT Jun 09, 2025 at 23:31 Date of Discharge: Jun 12, 2025 Admitting Diagnosis Right-sided flank pain and right-sided hydronephrosis, due to possible right- sided nephrostomy tube misplacement/obstruction Wounds: No large wounds. Labs/Diagnostic Data: Laboratory Results Test 06/13/25 05:06 06/12/25 05:50 06/10/25 10:42 06/09/25 21:20 White Blood Count 20.6 10^3/uL (4.4-10.8) Red Blood Count 5.45 10^6/uL (4.5-5.90) Hemoglobin 16.1 g/dL (13.5-17.5) Hematocrit 46.4 % (41.0-53.0) Mean Corpuscular Volume 85.1 fL (80.0-100.0) Mean Corpuscular Hemoglobin 29.5 pg (28.0-32.0) Mean Corpuscular Hemoglobin Concent 34.6 g/dL (32.0-36.0) Red Cell Distribution Width 14.0 % (11.8-14.3) Platelet Count 346 10^3/uL (140-450) Mean Platelet Volume 8.1 fL (6.9-10.8) Neutrophils (%) (Auto) 78.9 % (37.0-80.0) Lymphocytes (%) (Auto) 9.6 % (10.0-50.0) Monocytes (%) (Auto) 7.8 % (0.0-12.0) Eosinophils (%) (Auto) 3.2 % (0.0-7.0) Basophils (%) (Auto) 0.5 % (0.0-2.0) Neutrophils # (Auto) 16.3 10 ^3/uL (1.6-8.6) Lymphocytes # (Auto) 2.0 10 ^3/uL (0.4-5.4) Monocytes # (Auto) 1.6 10 ^3/uL (0-1.3) Eosinophils # (Auto) 0.7 10 ^3/uL (0-0.8) Basophils # (Auto) 0.1 10 ^3/uL (0-0.2) Nucleated Red Blood Cells 0.1 % Sodium Level 134 mmol/L (136-145) Potassium Level 4.5 mmol/L (3.5-5.1) Chloride Level 100 mmol/L (98-107) Carbon Dioxide Level 19 mmol/L (20-31) Anion Gap 15 (5-15) Blood Urea Nitrogen 11 mg/dL (9-23) Creatinine 1.20 mg/dL (0.700-1.30) Glomerular Filtration Rate Calc 71 mL/min (>90) BUN/Creatinine Ratio 9.2 (10.0-20.0) Serum Glucose 123 mg/dL (74-106) Calcium Level 10.1 mg/dL (8.7-10.4) Total Bilirubin 0.6 mg/dL (0.2-1.0) Aspartate Amino Transferase (AST) 51 U/L (13-40) Alanine Aminotransferase (ALT) 24 U/L (7-40) Alkaline Phosphatase 94 U/L (46-116) Total Protein 7.4 g/dL (5.7-8.2) Albumin 4.6 g/dL (3.2-4.8) Magnesium Level 2.0 mg/dL (1.6-2.6) Prothrombin Time 11.0 sec (9.3-11.8) Prothrombin Time INR 1.04 (0.9-1.15) Activated Partial Thromboplast Time 29.5 SEC (24.5-34.5) Urine Color Yellow (Yellow) Urine Clarity Turbid (Clear) Urine pH 6.0 (5.0-9.0) Urine Specific [place] 1.027 (1.001-1.035) Urine Protein 1+ (Negative) Urine Ketones Negative (Negative) Urine Blood 3+ /uL (Negative) Urine Nitrite Negative (Negative) Urine Bilirubin Negative (Negative) Urine Urobilinogen Normal mg/dL (Negative) Urine Leukocyte Esterase 1+ /uL (Negative) Urine RBC 882 /hpf (0 - 3) Urine Microscopic WBC 33 /HPF (0-3) Urine Squamous Epithelial Cells Few /hpf (<5) Urine Calcium Oxalate Crystals Few (None Seen) Urine Bacteria None seen /hpf (None Seen) Urine Mucus Few (None Seen) Urine Yeast (Budding) Occasional /hpf (None Urine Glucose Normal mg/dL (Normal) Test 06/09/25 19:06 Hemoglobin A1c 5.4 % A1C (<5.7) Triglycerides Level 122 mg/dL (< 150) Cholesterol Level 138 mg/dL (< 200) LDL Cholesterol 79 mg/dL (< 100) HDL Cholesterol 45 mg/dL (40-59) Other Laboratory Tests 06/13/25 05:06 Brief Hx & Hospital Course: David Vicente is a 54-year-old male with past medical history of hypertension, 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 He presented to the ED with acute right flank pain. He was discharged two days before presentation to ED from our facility after right- sided nephrostomy tube placement due to a 10 mm obstructing kidney stone. He stated that after discharge nephrostomy tube was draining clear urine and no significant pain was present at that time. He noticed that the right nephrostomy tube was not draining any urine at all and the minimum amount of urine is tinged blood colored urine. This was accompanied by pain, which was 10 on 10, sharp. No aggravating or relieving factors. He reported exacerbation of the right flank pain with a associated nausea but no vomiting. He denied fever/chills, chest pain, shortness of breath or any other associated symptoms. The nephrostomy tube is draining minimal bloody tinged urine in the last 24 hours. His labs were significant for urine analysis with turbid urine, blood 3+. A bilateral kidney ultrasound shows right hydronephrosis, simple renal cyst. A CT abdomen shows 8 mm right ureteral kidney stone with right hydronephrosis; Right nephrostomy tube retracted out of kidney collecting system. During his stay, he was started on IV ceftriaxone and pain management. Urology and IR was consulted. He underwent exchange of nephrostomy tube. He was monitored after the exchange of nephrostomy tube, he complained of blood in the nephrostomy tube. His vitals remained stable. Labs show stable hemoglobin. CT abdomen showed repositioned right percutaneous nephrostomy with stable appearing proximal ureteral calculus measuring 8 mm and trace retroperitoneal gas within the nephrostomy tract. And was scheduled for follow-up lithotripsy. He was stable post procedure. Today, his labs are WNL, his vitals are stable. We will discharge him to home. Consults/Reason for consult Urology was consulted, advised IR consult for exchange of PCN. Followed by lithotripsy TBA Operations or Procedures Extracorporeal Shockwave Lithotripsy Anesthesia: General Indications: Patient was found to have symptomatic Urolithiasis. Patient is here to undergo ESWL therapy. Informed Consent: The procedure was explained to the patient. It's risks include but not limited to infection, bleeding, and damage to the kidney. Patient fully understood and signed the consent. Other options such as watchful waiting, Ureteroscopy, Percutaneous surgery and open surgery were also discussed. Details of Procedure: Under satisfactory anesthesia, the patient was positioned on the lithotripsy table. Using fluoroscopy the stone was localized. Starting at low energy levels, shockwave treatment was commenced. The energy level was gradually increased and stone was fragmented. Once the treatment was completed, patient was then taken off the lithotripsy table and sent to recovery room in stable condition. His right nephrostomy tube was closed so that the fragmented stones can pass into the bladder. Specimens: None Complications: None Findings: Stone Laterality: right Stone Location: proximal ureteral 8 mm stone Shocks Delivered: 2500 Max Power settin Fragmentation Quality: Well Notes: If patient tolerates the closed nephrostomy tube and passes the fragmented stones, the nephrostomy tube can be removed ---- CT CT AB PEL WO CON-NO ORAL OR IV History: S/P RT Nephrostomy tube diogenes, RT Ureteric stone, Hematuria Comparison Study: CT CT AB PEL WO CON-NO ORAL OR IV on DOS: 06/10/25, CT CT AB PEL WO CON-NO ORAL OR IV on DOS: 06/07/25 Technique: Multidetector spiral CT of the abdomen was performed from lung bases to pubic symphysis. Imaging was performed without IV contrast. Axial, coronal and sagittal multiplanar reformats were obtained from the axial data set by the technologist. Radiation Dose : 1. Abdomen/Pelvis: CTDIvol 25.7 mGy, DLP 1503.83 mGy*cm. Findings: Evaluation of solid organs is limited due to lack of intravenous contrast use. Lung Bases: No acute or significant lung base finding. Mild bibasilar atelectasis. Normal heart size. No pleural or pericardial effusion. Liver: The liver is normal in size. No focal lesions. Gallbladder and Biliary Tree: Unremarkable Spleen: Unremarkable Pancreas: The pancreas is grossly normal in appearance. Adrenal Glands: Unremarkable Kidneys: Successfully repositioned right percutaneous nephrostomy with pigtail positioned within the renal pelvis. The 8 mm proximal ureteral calculus is unchanged in its position. Small collection of retroperitoneal gas within the nephrostomy tract. Bladder: Grossly unremarkable for degree of distention. Bowel: The stomach is grossly normal in appearance. Small bowel and colon are normal in caliber and distribution. The appendix is not visualized; however, no secondary findings of acute appendicitis identified. Ascites: Absent Lymphadenopathy: No mesenteric, retroperitoneal or periportal lymphadenopathy. Abdominal Wall and Mesentery: Small fat containing umbilical hernia.. Vasculature: The visualized abdominal aorta is normal in size and caliber. Evaluation of abdominal and pelvic vessels is limited due to lack of intravenous contrast. Pelvic Organs: Prostatomegaly, measuring up to 6.2 cm transverse. Right inguinal hernia contains fat and a portion of the urinary bladder. Musculoskeletal: No aggressive focal bony lesions, acute fractures or dislocation. IMPRESSION: 1. Successfully repositioned right percutaneous nephrostomy with stable appearing proximal ureteral calculus measuring 8 mm and trace retroperitoneal gas within the nephrostomy tract. 2. Prostatomegaly. 3. Right inguinal hernia containing fat and a portion of the urinary bladder. ---- XY PERCUTANEOUS NEPHROSTOMY, HISTORY: NEPHROTUBE due to obstructive uropathy with a proximal ureteral kidney stone. PROCEDURE: Informed consent was obtained. The patient was placed on the fluoroscopic table in a prone position and IV sedation administered. The left flank was prepped with chlorhexidine which was allowed to dry and draped in the usual sterile fashion. Contrast injected through the old nephrostomy tube. The old tube was removed. Time out was performed and the soft tissues infiltrated with 1% lidocaine local anesthetic. Utilizing ultrasound guidance, a 21 gauge Accu Stick needle was advanced from a posterolateral approach into an middle pole calyx, and a small amount of contrast was injected under fluoroscopy to confirm positioning. Over a mandril wire, exchange was made to a non-vascular access set, through which was advanced an 0.035 wire. Following serial dilation, an 8.5 [place]i multipurpose nephrostomy catheter was placed with tip pigtailed within the renal pelvis. Position was confirmed with antegrade nephrostogram. The catheter was secured in place and connected to gravity drainage. A sterile dressing was applied. No immediate complication was identified. DAP 231 FLUOROSCOPY TIME: 2.4 minutes. CONTRAST USED: 15 mL. SEDATION: Dr. Axel Horton was personally responsible for the administration of moderate sedation during the procedure performed, including the use of an independent trained observer who had no other duties during the procedure. The drugs utilized were IV fentanyl and versed (see nursing log for details). The total time of supervision by the attending physician was approximately 45 minutes. FINDINGS: Moderately dilated right renal collecting system involving the calyces/renal pelvis/ureter to the level of the proximal ureteral kidney stone. New 8.5 comoran nephrostomy tube via a posterior mid pole calyceal access, with loop coiled within the renal pelvis. IMPRESSION: Previous nephrostomy tube was retracted outside of kidney without contrast seen in the urinary collecting system. Left hydronephrosis due to proximal left ureteral kidney stone, status post placement of 8.5 comoran left percutaneous nephrostomy catheter. ---- US US GUIDANCE FOR NEEDLE PLACEME, HISTORY: NEPHROTUBE due to obstructive uropathy with a proximal ureteral kidney stone. PROCEDURE: Informed consent was obtained. The patient was placed on the fluoroscopic table in a prone position and IV sedation administered. The left flank was prepped with chlorhexidine which was allowed to dry and draped in the usual sterile fashion. Contrast injected through the old nephrostomy tube. The old tube was removed. Time out was performed and the soft tissues infiltrated with 1% lidocaine local anesthetic. Utilizing ultrasound guidance, a 21 gauge Accu Stick needle was advanced from a posterolateral approach into an middle pole calyx, and a small amount of contrast was injected under fluoroscopy to confirm positioning. Over a mandril wire, exchange was made to a non-vascular access set, through which was advanced an 0.035 wire. Following serial dilation, an 8.5 [place]i multipurpose nephrostomy catheter was placed with tip pigtailed within the renal pelvis. Position was confirmed with antegrade nephrostogram. The catheter was secured in place and connected to gravity drainage. A sterile dressing was applied. No immediate complication was identified. DAP 231 FLUOROSCOPY TIME: 2.4 minutes. CONTRAST USED: 15 mL. SEDATION: Dr. Axel Horton was personally responsible for the administration of moderate sedation during the procedure performed, including the use of an independent trained observer who had no other duties during the procedure. The drugs utilized were IV fentanyl and versed (see nursing log for details). The total time of supervision by the attending physician was approximately 45 minutes. FINDINGS: Moderately dilated right renal collecting system involving the calyces/renal pelvis/ureter to the level of the proximal ureteral kidney stone. New 8.5 comoran nephrostomy tube via a posterior mid pole calyceal access, with loop coiled within the renal pelvis. IMPRESSION: Previous nephrostomy tube was retracted outside of kidney without contrast seen in the urinary collecting system. Left hydronephrosis due to proximal left ureteral kidney stone, status post placement of 8.5 comoran left percutaneous nephrostomy catheter. ---- T CT AB PEL WO CON-NO ORAL OR IV INDICATION: nephrolithiasis EXAM DATE: 06/10/2025 09:15 AM COMPARISON: CT CT AB PEL WO CON-NO ORAL OR IV on DOS: 06/07/25 RADIATION DOSE: CTDIvol: 19 mGy, DLP: 1119 mGy*cm PROCEDURE: Helical CT images were obtained of the abdomen and pelvis without IV contrast Sagittal and coronal reconstructions are provided. ORAL CONTRAST: None. ADDITIONAL IMAGES / REFORMATS: None All CT scans at this medical facility are performed using dose modulation techniques as appropriate to a performed exam including the following: Automated exposure control was utilized; adjustment of the MA and/or KV according to patient size; and use of iterative reconstruction technique. FINDINGS: LUNG BASE: Normal. LIVER: Normal. GALLBLADDER AND BILIARY TREE: No calcified gallstones. Normal caliber wall. No intra- or extrahepatic biliary ductal dilation. PANCREAS: Normal. SPLEEN: Normal. BOWEL: There is moderate colonic diverticulosis. The appendix is not well visualized. ADRENALS: Normal. KIDNEYS AND URETER: Similar 8 mm proximal right ureteral kidney stone with mild right hydronephrosis. Right nephrostomy tube is retracted out of kidney collecting system. BLADDER: Normal. REPRODUCTIVE ORGANS: Normal. LYMPH NODES:No lymphadenopathy. PERITONEUM: No ascites or free air. No other fluid collection. VESSELS: Scattered atherosclerotic calcifications are noted. RETROPERITONEUM: Normal. ABDOMINAL WALL: Right inguinal hernia contains a portion of the bladder. Small fat containing umbilical hernia. BONES: Scattered osseous degenerative changes are noted. IMPRESSION: Similar 8 mm proximal right ureteral kidney stone with mild right hydronephrosis. Right nephrostomy tube is retracted out of kidney collecting system. ---- RIGHT SIDED NEPHROSTOMY TUBE AND NEPHROLITHIASIS TECHNIQUE: Multiple real-time sonographic images of the kidneys and bladder were obtained. COMPARISON: None FINDINGS: RIGHT kidney measures 11.8 cm in length. Nephrostomy noted. Moderate hydronephrosis. LEFT kidney measures 13.2 cm in length. Simple appearing cyst measuring 1.5 x 1.4 x 1.3 cm within the superior pole. No hydronephrosis. No large intraluminal masses are seen in the bladder. Bladder is decompressed. Post void residual not assessed. IMPRESSION: 1. Moderate right hydronephrosis status post nephrostomy. 2. Simple appearing left superior pole renal cyst. Condition at Discharge: Stable Final Diagnosis/Problems List Right-sided flank pain likely due displaced nephrostomy tube Status post lithotripsy Hydronephrosis Nephrolithiasis Possible right-sided pyelonephritis Complicated UTI, possible Primary hypertension Dyslipidemia History of CVA in 2011 with right-sided residual deficits History of multiple TIAs Hypokalemia Discharge Disposition: Home Discharge Instruct/Medications Diet: Renal Activity: No Restrictions, As Tolerated Follow Up/Referral: Please follow with primary care in 1 week. Please follow-up with urology outpatient. Medications: Please continue home medications. Care Plan: Please follow with primary care in 1 week. Please continue home medications. Scheduled Amlodipine Besylate (Amlodipine Besylate), 10 MG PO DAILY, (Reported) Amoxicillin & Pot Clavulanate (Augmentin Tablet), 875 MG PO BID Bupropion Hcl (Bupropion Hcl), 150 MG PO BID, (Reported) Carvedilol (Carvedilol), 12.5 MG PO Q12HR, (Reported) Cholecalciferol (Vitamin D3), 5,000 UNIT PO DAILY, (Reported) Clonidine Hydrochloride (Clonidine Hcl), 0.1 MG PO TID, (Reported) Lisinopril (Lisinopril), 40 MG PO BID, (Reported) Minoxidil (Loniten), 2.5 MG PO BID, (Reported) Potassium Chloride (Potassium Chloride Cr), 20 MEQ PO DAILY, (Reported) Simvastatin (Simvastatin), 20 MG PO DAILY, (Reported) Scheduled PRN Baclofen (Baclofen), 20 MG PO TID PRN for PAIN SCALE 1 THRU 6, (Reported) Ondansetron Odt 4MG Tab (Zofran Po), 4 MG PO TIDP PRN Discharge Statement: "Patient was advised to return to the ER or call 911 if any headaches, dizziness, shortness of breath, chest pain, abdominal pain, bleeding, fevers, or worsening of medical condition. Patient was counseled about treatment plan, medications, possible side effects, patientverbalized understanding. All questions were answered to the best of my ability. This discharge took greater then 30 minutes in planning, reviewing documentation, counseling the patient, and discussing with other team members." ASSESSMENT ASSESSMENT Assessment Right-sided flank pain likely due displaced nephrostomy tube Status post lithotripsy Hydronephrosis Nephrolithiasis Possible right-sided pyelonephritis Complicated UTI, possible Primary hypertension Dyslipidemia History of CVA in 2010 with right-sided residual deficits History of multiple TIAs Hypokalemia Date of Service: Jun 12, 2025 Billing Provider: MARK CELESTIN MD Common Visit Codes: 46736-NDR/OBS DISCH DAY >30min ORESTES JONES RESIDENT Jun 13, 2025 16:21 MARK CELESTIN MD Jun 20, 2025 21:11
[2025-06-13] MEDS ORDERED: ATORVASTATIN 20 MG TAB PO SCH (22:00)
--- NOTE | 2025-06-13 23:03 | DVHPN2 ---
Progress Note - Dictate Date Seen: Jun 13, 2025 Has the PT tested + for MRSA If YES, has PT been informed?: No Medical Necessity Reason Pt with a Central, PICC or Fol: No Medical Necessity Reason POD#1 s/p right ESWL Subjective Passed stone right nephrostomy tube in place and closed since his ESWL yesterday. vital signs Vital Sign Date Time Temp Pulse Resp B/P (MAP) Pulse Ox O2 Delivery O2 Flow Rate FiO2 06/13/25 16:29 93 06/13/25 15:37 20 144/100 06/13/25 13:02 98.3 93 98.3 06/13/25 08:00 Room Air* 0 21 Total Intake and Output 06/12/25 06/12/25 06/13/25 15:00 23:00 07:00 Intake Total 500 ml 150 ml 250 ml Balance 500 ml 150 ml 250 ml objective Right PNT removed laboratory and microbiology Laboratory Tests 06/13/25 05:06 Test 06/13/25 05:06 Range/Units Serum Glucose 123 H 74-106 mg/dL Problem List right ureteral stone, s/p eswl Assessment/Plan OK to discharge home Follow up 2 weeks with KUB and MATTHEW Plan discussed with: Patient, Other OLGA YOUNG MD Jun 13, 2025 23:03
== END 2025-06-13 17:00 | disposition home or self-care (01) | DRG 699 ==
LOC: ER 18:43 → OVERFLOW 23:31 → CENTRAL 06-10 02:16
PROVIDERS: ADMIT Student in an Organized Health Care Education/Training Program; ATTEND Student in an Organized Health Care Education/Training Program
PROC: 0T25X0Z Change Drainage Device in Kidney, External Approach (ICD-10-PCS; 2025-06-11)
PROC: 0TF6XZZ Fragmentation in Right Ureter, External Approach (ICD-10-PCS; principal; 2025-06-12 10:54)
DX: T83.022A Displacement of nephrostomy catheter, initial encounter (principal); N13.6 Pyonephrosis; E78.5 Hyperlipidemia, unspecified; E87.6 Hypokalemia; F32.A Depression, unspecified; Z91.018 Allergy to other foods; Z88.0 Allergy status to penicillin; Z88.1 Allergy status to other antibiotic agents; Z86.73 Personal history of transient ischemic attack (TIA), and cerebral infarction without residual deficits; Z87.442 Personal history of urinary calculi; Z83.3 Family history of diabetes mellitus; Z82.49 Family history of ischemic heart disease and other diseases of the circulatory system; Z80.3 Family history of malignant neoplasm of breast; Y84.8 Other medical procedures as the cause of abnormal reaction of the patient, or of later complication, without mention of misadventure at the time of the procedure; Y92.89 Other specified places as the place of occurrence of the external cause; Z79.899 Other long term (current) drug therapy
CPT/HCPCS: 36415; 50432; 71045; 74176; 74425; 76775; 76942; 80048; 80053; 80061; 80307; 81001; 82360; 83036; 83735; 84132; 85025; 85610; 85730; 86850; 86900; 86901; 87081; 87086; 96374; 96375; 99152; A4344; G0378; J2250; J2405; J2704; Q9967

== ENCOUNTER 2025-08-07 11:30 | Outpatient (CLI) | payer OTHER, MEDICAID ==
[~2025-08-07 11:30] MED LIST changes: -AZIT-74 PO; -HYDR-4902 PO; -MELO15TA29 PO; +MIN25T PO; -NAP500T PO; -QUET100T47 PO
[2025-08-07 11:58] LABS: Urine Protein, UAD TRACE (Negative)
[2025-08-07 12:01] LABS: Hematocrit 43.8 % (41.0-53.0); Hemoglobin 15.2 g/dL (13.5-17.5); Mean Corpuscular Hemoglobin 28.3 pg (28.0-32.0); Mean Corpuscular Volume 81.6 fL (80.0-100.0); Nucleated Red Blood Cells % 0.1 %
[2025-08-07 12:18] LABS: Alanine Aminotransferase 21 U/L (7-40); Albumin 4.4 g/dL (3.2-4.8); Alkaline Phosphatase 86 U/L (46-116); Anion Gap 11 (5-15); BUN/Creatinine Ratio 10.3 (10.0-20.0); Bilirubin, Total 0.7 mg/dL (0.2-1.0); Blood Urea Nitrogen 10 mg/dL (9-23); Calcium 9.0 mg/dL (8.7-10.4); Carbon Dioxide 28 mmol/L (20-31); Chloride 104 mmol/L (98-107); Cholesterol 157 mg/dL (< 200); Glucose 98 mg/dL (74-106); HDL Cholesterol 50 mg/dL (40-59); Sodium 143 mmol/L (136-145); Total Protein 7.3 g/dL (5.7-8.2)
[2025-08-07 12:23] LABS: Potassium 3.3 mmol/L (3.5-5.1); Triglycerides 157 mg/dL (< 150)
== END 2025-08-07 17:00 | disposition home or self-care (01) ==
LOC: LAB 11:30
PROVIDERS: ATTEND Internal Medicine
DX: E78.5 Hyperlipidemia, unspecified (principal); R73.03 Prediabetes; I71.20 Thoracic aortic aneurysm, without rupture, unspecified; Z00.01 Encounter for general adult medical examination with abnormal findings
CPT/HCPCS: 36415; 80053; 80061; 81001; 83036; 84439; 84443; 85025

== ENCOUNTER 2025-11-13 08:07 | Emergency (ER) | payer OTHER, MEDICAID ==
[~2025-11-13] VITALS: Ht 167.6 cm; Wt 86.6 kg
--- NOTE | 2025-11-13 08:53 | ED.PDOC ---
History of Present Illness HPI Comments 55-year-old male presents to the ER with prior medical history of groin/abdominal hernia, CVA, depression, hypertension, kidney stones, TIA: Surgical history of appendectomy and a chief complaint of generalized weakness. Patient reports on having had a sudden onset of N/V/D since Wednesday of 11/10/2025. Patient states on having had generalized rash of red patches which are an itchy and burning sensation. Patient notes on not being able to take his meds due from emesis. Denies any other symptoms at this time. Denies chills, fever, SOB, CP. No other associated symptoms, modifiers, recent injuries or sick contacts present at this time. Chief Complaint: General Weakness Time Seen by MD: 08:51 Primary Care Provider: BEENA Reviewed Notes: Nurses Notes, Medications, Allergies Allergies: Coded Allergies: Banana (Verified Allergy, Unknown, 06/07/25) Home Meds Active Scripts Ondansetron Odt 4MG Tab (ZOFRAN PO) 4 Mg Tb, 4 MG PO TIDP PRN for 5 Days, #15 TAB 0 Refills ODT TAB-DISSOLVE IN MOUTH, THEN SWALLOW Prov:MARK CELESTIN MD 06/08/25 Amoxicillin & Pot Clavulanate (AUGMENTIN TABLET) 875 Mg Tb, 875 MG PO BID for 4 Days, #8 TAB 0 Refills Prov:MARK CELESTIN MD 06/08/25 Reported Medications Minoxidil (Loniten) 2.5 Mg Tb, 2.5 MG PO BID, TAB 06/10/25 Cholecalciferol (VITAMIN D3) 2,000 Unit Tab, 5000 UNIT PO DAILY, #30 TAB 5 Refills 06/07/25 Bupropion Hcl (Bupropion Hcl) 100 Mg Tab, 150 MG PO BID for 30 Days, MG 09/30/20 Carvedilol (Carvedilol) 12.5 Mg Tab, 12.5 MG PO Q12HR for 30 Days, MG 09/30/20 Lisinopril (Lisinopril) 40 Mg Tab, 40 MG PO BID for 30 Days, MG 09/30/20 Clonidine Hydrochloride (Clonidine Hcl) 0.1 Mg Tab, 0.1 MG PO TID for 30 Days, MG 09/30/20 Simvastatin (Simvastatin) 20 Mg Tab, 20 MG PO DAILY for 30 Days 09/30/20 Amlodipine Besylate (Amlodipine Besylate) 5 Mg Tab, 10 MG PO DAILY for 30 Days, MG 09/30/20 Baclofen (Baclofen) 10 Mg Tab, 20 MG PO TID PRN for PAIN SCALE 1 THRU 6 for 30 Days, MG 09/30/20 Potassium Chloride (POTASSIUM CHLORIDE CR) 10 Meq Tb, 20 MEQ PO DAILY, TAB 09/30/20 Information Source: Patient Mode of Arrival: Ambulatory Severity: Moderate Timing: Days Duration: Since onset, Days Prehospital treatment: None Past Medical History PAST MEDICAL HISTORY: CVA, Depression, HTN, Kidney Stones, TIA Past Medical History (Other): Groin and abdominal hernia Surgical History: Appendectomy Family History Family History: Reviewed,noncontributory to illness, Unknown Social History Smoker: Non-Smoker Alcohol: Denies ETOH Use Drugs: Marijuana Lives In: Home Constitutional: denies: chills, diaphoresis, fatigue, fever, malaise, sweats, weakness, others EENTM: denies: blurred vision, double vision, ear bleeding, ear discharge, ear drainage, ear pain, ear ringing, eye pain, eye redness, hearing loss, mouth pain, mouth swelling, nasal discharge, nose bleeding, nose congestion, nose pain, photophobia, tearing, throat pain, throat swelling, voice changes, others Respiratory: denies: cough, hemoptysis, orthopnea, SOB at rest, shortness of breath, SOB with excertion, stridor, wheezing, others Cardiovascular: denies: chest pain, dizzy spells, diaphoresis, Dyspnea on exertion, edema, irregular heart beat, left arm pain, lightheadedness, palpitations, PND, syncope, others Gastrointestinal: reports: diarrhea, nausea, vomiting; denies: abdomen distended, abdominal pain, blood streaked bowels, constipated, dysphagia, dif ficulty swallowing, hematemesis, melena, poor appetite, poor fluid intake, rectal bleeding, rectal pain, others Genitourinary: denies: burning, dysuria, flank pain, frequency, hematuria, incontinence, penile discharge, penile sore, pain, testicle pain, testicle swelling, urgency, others Neurological: denies: dizziness, fainting, headache, left sided numbness, left sided weakness, numbness, paresthesia, pre-existing deficit, right sided numbness, right sided weakness, seizure, speech problems, tingling, tremors, weakness, others Musculoskeletal: denies: back pain, gout, joint pain, joint swelling, muscle pain, muscle stiffness, neck pain, others Integumetry: reports: rash; denies: bruises, change in color, change in hair/nails, dryness, laceration, lesions, lumps, wounds, others Allergic/Immunocompromised: denies: Difficulty Healing, Frequent Infections, Hives, Itching, others Hematologic/Lymphatic: denies: anemia, blood clots, easy bleeding, easy bruising, swollen glands, others Endocrine: denies: excessive hunger, excessive sweating, excessive thirst, excessive urination, flushing, intolerance to cold, intolerance to heat, unexplained weight gain, unexplained weight loss, others Psychiatric: denies: anxiety, bipolar disorder, depression, hopeless, panic disorder, schizophrenia, sleepless, suicidal, others All Other Systems: Reviewed and Negative Physical Exam General Appearance: Moderate Distress, Normal HEENT: Normal ENT Inspection, Pharynx Normal, TMs Normal Neck: Full Range of Motion, Non-Tender, Normal, Normal Inspection Respiratory: Chest Non-Tender, Lungs Clear, No Accessory Muscle Use, No Respiratory Distress, Normal Breath Sounds Cardiovascular: No Edema, No JVD, No Murmur, No Gallop, Normal Peripheral Pulses, Regular Rate/Rhythm Breast Exam: Deferred Gastrointestinal: No Organomegaly, Non Tender, No Pulsatile Mass, Normal Bowel Sounds, Soft Genitalia: Deferred Pelvic: Deferred Rectal: Deferred Extremities: No calf tenderness, Normal capillary refill, Normal inspection, Normal range of motion, Non-tender, No pedal edema Musculoskeletal : Apperance: Normal Neurologic: Alert, 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 Was a procedure done?: No Differential Dx Considerations may include: Hernia Allergic reaction X-Ray, Labs, Meds, VS Vital Signs Date Time Temp Pulse Resp B/P (MAP) Pulse Ox O2 Delivery O2 Flow Rate FiO2 11/13/25 11:58 98.4 108 16 149/107 (121) 98.4 11/13/25 11:58 108 16 98 Room Air* 0 21 11/13/25 09:18 97.9 113 1 129/94 (106) 96 97.9 11/13/25 08:09 97.3 107 17 144/117 97 97.3 Lab Test 11/13/25 09:27 11/13/25 09:05 Range/Units White Blood Count 21.7 H 4.4-10.8 10^3/uL Red Blood Count 6.41 H 4.5-5.90 10^6/uL Hemoglobin 18.2 H 13.5-17.5 g/dL Hematocrit 51.3 41.0-53.0 % Mean Corpuscular Volume 80.0 80.0-100.0 fL Mean Corpuscular Hemoglobin 28.4 28.0-32.0 pg Mean Corpuscular Hemoglobin Concent 35.6 32.0-36.0 g/dL Red Cell Distribution Width 14.4 H 11.8-14.3 % Platelet Count 383 140-450 10^3/uL Mean Platelet Volume 8.0 6.9-10.8 fL Neutrophils (%) (Auto) 81.9 H 37.0-80.0 % Lymphocytes (%) (Auto) 8.6 L 10.0-50.0 % Monocytes (%) (Auto) 7.0 0.0-12.0 % Eosinophils (%) (Auto) 2.1 0.0-7.0 % Basophils (%) (Auto) 0.4 0.0-2.0 % Neutrophils # (Auto) 17.8 H 1.6-8.6 10 ^3/uL Lymphocytes # (Auto) 1.9 0.4-5.4 10 ^3/uL Monocytes # (Auto) 1.5 H 0-1.3 10 ^3/uL Eosinophils # (Auto) 0.5 0-0.8 10 ^3/uL Basophils # (Auto) 0.1 0-0.2 10 ^3/uL Nucleated Red Blood Cells 1.7 % Sodium Level 136 136-145 mmol/L Potassium Level 2.9 L 3.5-5.1 mmol/L Chloride Level 100 98-107 mmol/L Carbon Dioxide Level 21 20-31 mmol/L Anion Gap 15 5-15 Blood Urea Nitrogen 14 9-23 mg/dL Creatinine 1.50 H 0.700-1.30 mg/dL Glomerular Filtration Rate Calc 54 >90 mL/min BUN/Creatinine Ratio 9.3 L 10.0-20.0 Serum Glucose 175 H 74-106 mg/dL Calcium Level 9.0 8.7-10.4 mg/dL Total Bilirubin 0.9 0.2-1.0 mg/dL Aspartate Amino Transferase (AST) 16 13-40 U/L Alanine Aminotransferase (ALT) 13 7-40 U/L Alkaline Phosphatase 75 46-116 U/L Troponin I High Sensitivity 5 </=54 ng/L Total Protein 7.0 5.7-8.2 g/dL Albumin 4.4 3.2-4.8 g/dL Urine Color Yellow Yellow Urine Clarity Clear Clear Urine pH 6.0 5.0-9.0 Urine Specific [place] 1.026 1.001-1.035 Urine Protein 1+ H Negative Urine Ketones Trace Negative Urine Blood Negative Negative /uL Urine Nitrite Negative Negative Urine Bilirubin Negative Negative Urine Urobilinogen Normal Negative mg/dL Urine Leukocyte Esterase Negative Negative /uL Urine RBC 1 0 - 3 /hpf Urine Microscopic WBC 7 H 0-3 /HPF Urine Squamous Epithelial Cells Few <5 /hpf Urine Bacteria None seen None Seen /hpf Urine Hyaline Casts Few 0 - 2 /lpf Urine Mucus Few None Seen Urine Glucose Normal Normal mg/dL Current Medications Medications (Trade) Dose Ordered Sig/Gerardo Route Start Time Stop Time Status Last Admin Sodium Chloride 1,000 ml @ 1,000 mls/hr Q1H ONCE IV 11/13/25 09:00 11/13/25 09:59 DC 11/13/25 09:25 Sodium Chloride 1,000 ml @ 150 mls/hr Q6H40M ONCE IV 11/13/25 09:00 11/13/25 15:39 11/13/25 10:00 Methylprednisolone Sodium Succinate (Solu Medrol) 125 mg ONCE ONCE IV 11/13/25 09:00 11/13/25 09:01 DC 11/13/25 11:18 Diphenhydramine HCl (Benadryl Injection) 50 mg ONCE ONCE IV 11/13/25 09:00 11/13/25 09:01 DC 11/13/25 11:18 Patient alert. Came in because of nausea vomiting rash. Vitals stable. Answering questions. History of hypertension. Explained to the patient. Continue monitoring. Time of 1ST Reevaluation: 09:20 Reevaluation 1ST: Unchanged Patient Education/Counseling: Diagnosis, Treatment, Prognosis Family Education/Counseling: No Family Present SEPSIS Sepsis Screen Date sepsis recognized/suspect: Nov 13, 2025 Time Sepsis recognized/suspect: 808 Recent Procedure: No On Antibiotic Therapy: No Respiratory Rate >20: No Heart Rate >90: Yes Temp<36 C (96.8 F) or >38.3 C: No SBP <90 or MAP <65 mmHG: No New Acute Mental Status Change: No Is the patient on CPAP, BIPAP,: No Physician Orders Chest Portable (11/13/25 08:51) Sodium Chloride 0.9% (11/13/25 09:00) Vital Signs Date Time Temp Pulse Resp B/P (MAP) Pulse Ox O2 Delivery O2 Flow Rate FiO2 11/13/25 11:58 98.4 108 16 149/107 (121) 98.4 11/13/25 11:58 108 16 98 Room Air* 0 21 11/13/25 09:18 97.9 113 1 129/94 (106) 96 97.9 11/13/25 08:09 97.3 107 17 144/117 97 97.3 Laboratory Tests Test 11/13/25 09:27 White Blood Count 21.7 10^3/uL (4.4-10.8) H Medications Medications Dose Ordered Sig/Gerardo Route Start Time Stop Time Status Last Admin Dose Admin Diphenhydramine HCl 50 mg ONCE ONCE IV 11/13/25 09:00 11/13/25 09:01 DC 11/13/25 11:18 Methylprednisolone Sodium Succinate 125 mg ONCE ONCE IV 11/13/25 09:00 11/13/25 09:01 DC 11/13/25 11:18 Sodium Chloride 1,000 ml @ 150 mls/hr Q6H40M ONCE IV 11/13/25 09:00 11/13/25 15:39 11/13/25 10:00 Sodium Chloride 1,000 ml @ 1,000 mls/hr Q1H ONCE IV 11/13/25 09:00 11/13/25 09:59 DC 11/13/25 09:25 Departure 1 Departure Time of Disposition: 08:56 Impression: Primary Impression: Hypertensive urgency Additional Impressions: Gastroenteritis Allergic reaction Qualified Codes: T78.40XA - Allergy, unspecified, initial encounter Disposition: ADMITTED INPATIENT Admit to: Med Surg Condition: Guarded Critical Care Note Critical Care Time?: No Stability Stability form required: No Heart Score Heart Score: Heart Score Response (Comments) Value History N/A 0 EKG N/A 0 Age N/A 0 Risk Factors N/A 0 Troponin N/A 0 Total 0 I personally scribed for VAZQUEZ MCDONOUGH MD ([email or web address]) on 11/13/25 at 08:53. Electronically submitted by Vincent Dillon ([email or web address]). VAZQUEZ MCDONOUGH MD Nov 13, 2025 08:53
[2025-11-13] MEDS: SODIUM CHLORIDE 0.9% 1,000 ML IV ONE ×2 (09:25→10:00)
--- NOTE | 2025-11-13 09:33 | DVH ---
CHEST RADIOGRAPH INDICATION: sob TECHNIQUE: XY CHEST PORTABLE Comparison: None FINDINGS: The cardiac silhouette is unremarkable. The lungs demonstrate no pulmonary airspace consolidation. The pulmonary vasculature is unremarkable. There is no pleural effusion. There is no pneumothorax. Aortic atherosclerotic disease. IMPRESSION: No pulmonary airspace consolidation.
[2025-11-13 09:41] LABS: Hematocrit 51.3 % (41.0-53.0); Hemoglobin 18.2 g/dL (13.5-17.5); Mean Corpuscular Hemoglobin 28.4 pg (28.0-32.0); Mean Corpuscular Volume 80.0 fL (80.0-100.0); Nucleated Red Blood Cells % 1.7 %
[2025-11-13 10:04] LABS: Alanine Aminotransferase 13 U/L (7-40); Albumin 4.4 g/dL (3.2-4.8); Alkaline Phosphatase 75 U/L (46-116); Anion Gap 15 (5-15); BUN/Creatinine Ratio 9.3 (10.0-20.0); Bilirubin, Total 0.9 mg/dL (0.2-1.0); Blood Urea Nitrogen 14 mg/dL (9-23); Calcium 9.0 mg/dL (8.7-10.4); Carbon Dioxide 21 mmol/L (20-31); Chloride 100 mmol/L (98-107); Sodium 136 mmol/L (136-145); Total Protein 7.0 g/dL (5.7-8.2)
[2025-11-13 10:05] LABS: Glucose 175 mg/dL (74-106); Potassium 2.9 mmol/L (3.5-5.1)
[2025-11-13] MEDS: methylPREDNISolone SOD SUCC 125 MG/2 ML VL IV ONE (11:18)
[2025-11-13] MEDS: diphenhydrAMINE HCL 50 MG/1 ML VL IV ONE (11:18)
[2025-11-13] MEDS: ONDANSETRON HCL 4 MG/2 ML VIAL IV ONE (11:54)
[2025-11-13 11:58] VITALS: BP 149/107; PULSE 108; RESP 16; TEMP 98.4; O2SAT 98
[2025-11-13 12:22] LABS: Urine Protein, UAD 1+ (Negative)
== END 2025-11-13 15:17 | disposition left against medical advice (07) ==
LOC: ER 08:07
DX: T78.40XA Allergy, unspecified, initial encounter (principal); I16.0 Hypertensive urgency; K52.9 Noninfective gastroenteritis and colitis, unspecified; F12.90 Cannabis use, unspecified, uncomplicated; F32.A Depression, unspecified; I10 Essential (primary) hypertension; Z79.899 Other long term (current) drug therapy; Z91.018 Allergy to other foods; Z90.49 Acquired absence of other specified parts of digestive tract; Z87.442 Personal history of urinary calculi; Z86.73 Personal history of transient ischemic attack (TIA), and cerebral infarction without residual deficits; X58.XXXA Exposure to other specified factors, initial encounter
CPT/HCPCS: 36415; 71045; 80053; 81001; 84484; 85025; 96361; 96374; 96375; 99284; J1200; J2919; J7030